=== PATIENT | male | born 1940 | race African-American/Black ===

== ENCOUNTER 2017-07-12 04:08 | Inpatient (IN) | payer MEDICARE ==
[2017-07-12 05:17] LABS: Hematocrit 47.9 % (42.0-52.0); Mean Platelet Volume 6.8 fL (7.4-10.4); White Blood Cell (WBC) Count 7.7 thou/uL (4.8-10.8)
[2017-07-12 05:25] LABS: Bilirubin Small (Negative); Blood, Urine Large (Negative); Glucose, Urine (Dipstick) Negative (Negative); Ketone, Urine 15 mg/dL (Negative); Nitrite Negative (Negative); Protein, Urine (Dipstick) 100 mg/dL (Neg-Trace); Urobilinogen 0.2 mg/dL (0.2-1.0)
[2017-07-12 05:28] LABS: Bacteria/HPF None Seen HPF (None Seen)
[2017-07-12 05:31] LABS: ALT (SGPT) 38 U/L (8-55); AST (SGOT) 75 U/L (5-34); Alkaline Phosphatase 76 U/L (40-150); Anion Gap 18 mmol/L (10-20); BUN (Urea Nitrogen) 24 mg/dL (8.4-25.7); Bilirubin, Total 0.7 mg/dL (0.2-1.2); Calc. Creatinine Clearance 0 mL/min (70-130); Calcium 9.9 mg/dL (7.8-10.44); Carbon Dioxide 23 mmol/L (23-31); Chloride 110 mmol/L (98-107); Estimated GFR-MDRD 83; Globulin 3.9 g/dL (2.4-3.5); Protein, Total 7.9 g/dL (5.8-8.1)
[2017-07-12 05:33] LABS: Lactic Acid - Sepsis 3.7 mmol/L (0.5-2.2)
[2017-07-12 05:35] LABS: #Basophils 0.1 thou/uL (0.0-0.2); #Lymphocytes 1.6 thou/uL (1.20-3.40); #Neutrophils 5.1 thou/uL (1.40-6.50); %Basophils 0.9 % (0.0-1.0); %Eosinophils 0.2 % (0.0-10.0); %Lymphocytes 20.7 % (21.0-51.0); %Monocytes 12.6 % (0.0-10.0)
[2017-07-12 05:50] LABS: Troponin I 0.141 ng/mL (< 0.028)
[2017-07-12 05:54] LABS: Sodium 150 mmol/L (135-148)
[2017-07-12 05:54] LABS: RBC/HPF GREATER THAN 50-TNTC HPF (0-3)
[2017-07-12 05:55] LABS: Mode 2LNC; Modified Allen's Test POSITIVE; Vent NO
[2017-07-12 05:55] LABS: Hyaline Casts/LPF 0-3 HYALINE CAST LPF (0-3 Hyaline); Yeast-All Forms None Seen HPF (None Seen)
[2017-07-12] MEDS ORDERED: Ondansetron HCl/PF 4 MG/2 ML Vial IVP PRN (06:01)
--- NOTE | 2017-07-12 06:01 | PDOC.EVN ---
Event Note - Event Note Event Note: [id number] H&P Dictated 1. Metabolic encephalopathy 2. H/O CVA 3. NSTEMI 4. h/o htn pLAN: SEE ORDERS
[2017-07-12] MEDS ORDERED: cefTRIAXone\\ROCEPHIN 1 GM VIAL ONE (06:17)
[2017-07-12] MEDS ORDERED: Lidocaine 1% PF 5 ML VIAL ONE (06:17)
[2017-07-12] MEDS ORDERED: Aspirin 300 MG Suppository ONE (06:19)
[2017-07-12] MEDS ORDERED: Enoxaparin Sodium 60 MG/0.6 ML SYRINGE ONE (06:46)
[2017-07-12 07:50] LABS: Troponin I 0.144 ng/mL (< 0.028)
--- NOTE | 2017-07-12 07:56 | CT ---
PRELIMINARY REPORT/[facility]/EMERGENCY AFTER HOURS PROCEDURE: EXAM: CT Head Without Intravenous Contrast CLINICAL HISTORY: 76 years old, male; Signs and symptoms; Altered mental status/memory loss; Confusion or disorientati on; Patient HX: AMS TECHNIQUE: Axial computed tomography images of the head/brain without intravenous contrast. COMPARISON: No relevant prior studies available. FINDINGS: Brain: Mild volume loss No hemorrhage. Mild white matter disease. No edema. Ventricles: Unremarkable. No ventriculomegaly. Bones/joints: Chronic nasal bone deformities No acute fracture. Soft tissues: Unremarkable. Sinuses: Unremarkable as visualized. No acute sinusitis. Mastoid air cells: Unremarkable as visualized. No mastoid effusion. IMPRESSION: No intracranial hemorrhage.Please see discussion above. Thank you for allowing us to participate in the care of your patient. Dictated and Authenticated by: Jax Elias MD 07/12/2017 5:28 AM Central Time ([place] \[place]) FINAL REPORT EMERGENT AFTER HOURS CT HEAD WITHOUT IV CONTRAST 07/12/2017 HISTORY: Worsening altered mental status. COMPARISON: 03/20/2017 IMPRESSION: 1. No acute intracranial abnormalities demonstrated. 2. Chronic small vessel ischemic changes and cerebral volume loss similar to prior study. 3. Findings are in agreement with the preliminary report by Miguel. POS: LEIGH
--- NOTE | 2017-07-12 08:44 | PDOC.PN ---
- Subjective Encounter Start Date: 07/12/17 Encounter Start Time: 08:42 Subjective: Confused -: No agitation -: No fevers this AM - Objective MAR Reviewed: Yes Vital Signs & Weight: Vital Signs (12 hours) Temp Pulse Resp BP Pulse Ox 07/12/17 07:56 98.1 F 61 18 136/70 100 Weight Weight 148 lb 0.011 oz Result Diagrams: 07/12/17 05:01 07/12/17 05:01 Phys Exam - Physical Examination Constitutional: NAD HEENT: PERRLA, moist MMs Neck: no nodes, no JVD Respiratory: no wheezing, no rales, no rhonchi Cardiovascular: RRR, no significant murmur Gastrointestinal: soft, non-tender, positive bowel sounds Deviation from normal: unable to assess Skin: no rash, normal turgor Dx/Plan (1) History of CVA (cerebrovascular accident) Code(s): Z86.73 - PRSNL HX OF TIA (TIA), AND CEREB INFRC W/O RESID DEFICITS Status: Acute (2) Metabolic encephalopathy Code(s): G93.41 - METABOLIC ENCEPHALOPATHY Status: Acute (3) NSTEMI (non-ST elevated myocardial infarction) Code(s): I21.4 - NON-ST ELEVATION (NSTEMI) MYOCARDIAL INFARCTION Status: Acute - Plan Encephalopathy 2/2 UTI * CT brain: no acute issue * CXR: pending * Urine cx: pending * Blood cx: pending * start Emperic Abx: Ceftriaxone * consult ST to assess swallow function, as he is at risk for aspiration while encephalopathic * Fall precautions NSTEMI * trend cardiac enzymes * cardiology consulted H/o CVA with Physical Deconditioning * PT/OT * Fall precautions Dispo: continue inpt.
--- NOTE | 2017-07-12 08:51 | HP ---
CHIEF COMPLAINT: Fall, confusion. HISTORY OF PRESENT ILLNESS: The patient is a 76-year-old male with past medical history of hypertension, CVA, hyperlipidemia, osteoarthritis, now came to the hospital because of the fall and history obtained from the patient's family as the patient is currently confused. Per family members, the patient has complained of bilateral lower extremity swelling and pain since this morning. The patient had a fall, following the fall the patient appears confused and so EMS was called. Upon EMS arrival the patient was found confused. The patient was brought to the ER. The patient is lethargic, but no other history available from the patient at this time, The patient per family, the patient was confused since this evening. Denies any cough, denies sputum production, denies any fever, denies any chills. PAST MEDICAL HISTORY: As per HPI. PAST SURGICAL HISTORY: Pacemaker. SOCIAL HISTORY: Denies smoking, denies alcohol, denies any drugs. MEDICATIONS: Reviewed. FAMILY HISTORY: Positive for heart problems. REVIEW OF SYSTEMS: Unavailable from the patient as the patient is currently lethargic. PHYSICAL EXAMINATION: CONSTITUTIONAL/VITAL SIGNS: At the time of H\T\P performed, blood pressure is 130/70, afebrile, pulse ox 97% on 3 liters. GENERAL: The patient appears lethargic, but arousable. HEENT: Eyes; scleral icterus, conjunctival erythema present, nose normal, ENT patent. Poor dentition. NECK: Supple, no JVD. CARDIOVASCULAR: S1, S2 present. Regular rate and rhythm, no murmurs, no rubs, no gallops. RESPIRATORY SYSTEM: Positive for rhonchi. No wheezing. Diminished at the bases. GASTROINTESTINAL: Abdomen is soft, nontender, no guarding, no organomegaly, no masses felt. MUSCULOSKELETAL: Bilateral 2+ edema present. INTEGUMENTARY: No rashes seen. PSYCHIATRIC: Cranial nerve intact. Follows commands. Strength intact, sensory intact. GENITOURINARY: No suprapubic tenderness. NEUROLOGIC: Patient follows commands, not oriented. PSYCHIATRIC: Mood calm. LABORATORY: White count 7.7, hemoglobin 15.2, platelet count is 271. Sodium 147, potassium 3.5, chloride 110, CO2 of 23, BUN of 24, creatinine 1.5. Lactic acid 3.7, CK-MB is 43.8, troponin 0.141, globulin 3.9. EKG, no acute ST changes. Lactic acid 3.7. IMAGING: CT head, no acute process seen. ASSESSMENT AND PLAN: The patient is a 76-year-old male. 1. Metabolic encephalopathy, need to rule out urinary tract infection. Plan to consult Neurology to evaluate the patient. Plan to monitor the patient closely. 2. History of hypertension, monitor blood pressure. Continue pressure meds. 3. Mqu-QS-cmwplsk elevation myocardial infarction. Plan to check cardiac enzymes. Plan to consult Cardiology. Plan to give a dose of Lovenox if CT head negative. 4. History of cerebrovascular accident. Plan to monitor the patient closely. Plan to get PT, OT, speech therapy evaluation. 5. History of hypertension. Monitor blood. Continue blood pressure meds. The case was discussed in detail with the patient. The patient is full code. MTDD
--- NOTE | 2017-07-12 09:15 | RAD ---
PORTABLE AP CHEST X-RAY: 07/12/2017 HISTORY: Altered mental status. COMPARISON: 07/15/2006 FINDINGS: A dual-lead right subclavian cardiac pacemaker device is noted in place. The cardiac silhouette and pulmonary vasculature are within normal limits. Vascular calcifications are seen in an ectatic tho racic aorta. There is bilateral glenohumeral osteoarthropathy with narrowing of the subacromial spa luiz bilaterally. IMPRESSION: No acute cardiopulmonary process. POS: JESSICA
[2017-07-12] MEDS: cefTRIAXone\\ROCEPHIN 1 GM in Sodium Chloride 0.9% 100 ML IVPB SCH (10:27)
[2017-07-12] MEDS: Aspirin 325 mg Enteric Coated Tablet PO SCH (10:27)
[2017-07-12] MEDS: Ramipril 5 MG CAP PO SCH (10:31)
[2017-07-12] MEDS: Carvedilol 25 MG TAB PO SCH ×2 (10:31→21:59)
[2017-07-12] MEDS: Amlodipine 5 MG TAB PO SCH (10:31)
[2017-07-12 10:37] LABS: Oxyhemoglobin 96.8 % (94.0-97.0); Sodium 149 mmol/L (135-148)
[2017-07-12 10:38] LABS: Mode NC; Modified Allen's Test POSITIVE; Vent NO
[2017-07-12] MEDS: Sodium Chloride 0.9% 1,000 ML IV SCH (10:42)
[2017-07-12 10:46] LABS: Troponin I 0.172 ng/mL (< 0.028)
[2017-07-12] MEDS: Furosemide 40 MG/4 ML VIAL SLOW IVP SCH (15:54)
--- NOTE | 2017-07-12 16:34 | CON ---
DATE OF CONSULTATION: 07/12/2017 REASON FOR CONSULTATION: Syncope. REFERRING PROVIDER: Dr. El. HISTORY OF PRESENT ILLNESS: Mr. Luna is a very pleasant 76-year-old gentleman, who I have seen and evaluated in the past. He has a history of moderate CAD, diagnosed in 2010 during angiography. He recently presented with weakness and fall. No syncope, presyncope noted. His family states he fell to the floor and was there for several hours. This occurred in the middle of night. He was then b rought to the emergency room with altered mental status. No chest pain or pressure noted. PAST MEDICAL AND SURGICAL HISTORY: Sick sinus syndrome, status post pacemaker implantation, hyperte nsion, moderate MR, moderate AI and nonischemic cardiomyopathy. ALLERGIES: IODINE. HOME MEDICATIONS: Include folic acid, methotrexate, Lasix, misoprostol, diclofenac, aspirin, carved ilol, ramipril and amlodipine. REVIEW OF SYSTEMS: Ten-point review of system is difficult to obtain. PHYSICAL EXAMINATION: GENERAL: Patient is a pleasant male who is in no acute distress. The patient appears his stated ag e. VITAL SIGNS: Blood pressure 108/58, pulse 60 and temperature 98. NEUROLOGIC: The patient is alert and oriented x3 with no focal neurologic deficits. HEENT: Sclerae without icterus. Mouth has moist mucous membranes with normal pallor. NECK: No JVD. Carotid upstroke brisk. No bruits bilaterally. LUNGS: Clear to auscultation with unlabored respirations. BACK: No scoliosis or kyphosis. CARDIAC: Regular rate and rhythm with normal S1 and S2. No S3 or S4 noted. No significant rubs, m urmurs, thrills, or gallops noted throughout the precordium. PMI is not displaced. There is no par asternal heave. ABDOMEN: Soft, nontender, nondistended. No peritoneal signs present. No hepatosplenomegaly. No abnormal striae. EXTREMITIES: 2+ femoral and 2+ dorsalis pedis pulses. No cyanosis, clubbing, or edema. SKIN: No gross abnormalities. PERTINENT LABS: Hemoglobin 15.2. Creatinine 1.05, CK-MB of 43 and peak troponin 0.144. IMPRESSION: 1. Altered mental status. 2. Weakness and falls. RECOMMENDATIONS: I am unsure whether Mr. Luna has had a true syncope. It is difficult to obtain a history. I would recommend interrogation of his pacer. His elevated CK-MB is likely related to his recent fall and being on the ground for several hours. This is also a reflection of his troponin. At this point, would continue conservative therapy. Last echo in the office was in 08/2015, we wou ld recommend a repeat study. His LVEF at that time was 55% to 60%.
[2017-07-12 23:36] LABS: Troponin I 0.149 ng/mL (< 0.028)
[2017-07-13] MEDS: Sodium Chloride 0.9% 1,000 ML IV SCH (02:15)
[2017-07-13] MEDS: Furosemide 40 MG/4 ML VIAL SLOW IVP SCH ×2 (06:28→14:57)
[2017-07-13 06:47] LABS: Anion Gap 12 mmol/L (10-20); BUN (Urea Nitrogen) 25 mg/dL (8.4-25.7); Calc. Creatinine Clearance 51 mL/min (70-130); Calcium 8.9 mg/dL (7.8-10.44); Carbon Dioxide 25 mmol/L (23-31); Chloride 114 mmol/L (98-107); Estimated GFR-MDRD 75
[2017-07-13 06:52] LABS: Troponin I 0.133 ng/mL (< 0.028)
[2017-07-13 07:50] LABS: Hematocrit 36.4 % (42.0-52.0); Red Blood Cell (RBC) Count 3.45 mill/uL (4.70-6.10); White Blood Cell (WBC) Count 7.3 thou/uL (4.8-10.8)
[2017-07-13 08:07] LABS: Band 1 % (5-11); Neutrophil 58 % (42-75); Reactive Lymphocytes 5 % (0-10)
--- NOTE | 2017-07-13 08:33 | PDOC.PN ---
- Subjective Encounter Start Date: 07/13/17 Encounter Start Time: 08:31 Subjective: More coherent today. -: No f/c -: No MONCADA/cp/sob - Objective MAR Reviewed: Yes Vital Signs & Weight: Vital Signs (12 hours) Temp Pulse Resp BP Pulse Ox 07/13/17 07:48 97.4 F L 62 18 136/72 98 07/13/17 04:00 99.8 F H 63 16 164/70 H 97 07/13/17 00:00 62 18 116/58 L 96 Weight Weight 148 lb 12.8 oz Result Diagrams: 07/13/17 05:52 07/13/17 05:52 Additional Labs: Accuchecks 07/12/17 20:22 POC Glucose 121 H Phys Exam - Physical Examination Constitutional: NAD HEENT: moist MMs, sclera anicteric Neck: no nodes, no JVD Respiratory: no wheezing, no rales, clear to auscultation bilateral Cardiovascular: RRR, no significant murmur Gastrointestinal: soft, non-tender, positive bowel sounds Psychiatric: normal affect, A&O x 3 Skin: no rash, normal turgor, cap refill <2 seconds Dx/Plan (1) History of CVA (cerebrovascular accident) Code(s): Z86.73 - PRSNL HX OF TIA (TIA), AND CEREB INFRC W/O RESID DEFICITS Status: Acute (2) Metabolic encephalopathy Code(s): G93.41 - METABOLIC ENCEPHALOPATHY Status: Acute (3) NSTEMI (non-ST elevated myocardial infarction) Code(s): I21.4 - NON-ST ELEVATION (NSTEMI) MYOCARDIAL INFARCTION Status: Acute - Plan Encephalopathy 2/2 UTI * CT brain: no acute issue * CXR: no acute issue * Urine cx: mixed - will repeat * Blood cx: NGTD * Emperic Abx: Ceftriaxone * consulted ST to assess swallow function - modified diet * Fall precautions NSTEMI * trend cardiac enzymes * appreciate cardiology input H/o CVA with Physical Deconditioning * PT/OT * Fall precautions Hypokalemia * will order 40mEq K-dur today * check K and Mg in AM Hypernatremia * start 1/2NS at 50ml/hr * check Na in AM Dispo: continue inpt.
[2017-07-13] MEDS ORDERED: Potassium Chloride 20 MEQ TAB PO SCH (08:45)
[2017-07-13] MEDS: Sodium Chloride 0.45% 1,000 ML IV SCH (08:48)
[2017-07-13] MEDS: Ramipril 5 MG CAP PO SCH (08:50)
[2017-07-13] MEDS: Aspirin 325 mg Enteric Coated Tablet PO SCH (08:51)
[2017-07-13] MEDS: Amlodipine 5 MG TAB PO SCH (08:51)
[2017-07-13] MEDS: Carvedilol 25 MG TAB PO SCH ×3 (08:51→22:05)
[2017-07-13] MEDS: cefTRIAXone\\ROCEPHIN 1 GM in Sodium Chloride 0.9% 100 ML IVPB SCH (09:55)
[2017-07-13] MEDS: Acetaminophen 325 MG TAB PO PRN (12:43)
--- NOTE | 2017-07-13 18:55 | PRG ---
DATE OF SERVICE: 07/13/2017 SUBJECTIVE: Mr. Luna's status is unchanged. He recently had his pacemaker interrogated with no sig nificant arrhythmias present. Pacemaker appears to be functioning well. OBJECTIVE: VITAL SIGNS: Blood pressure 125/58, temperature 98.5. LUNGS: Clear to auscultation. CARDIAC: Regular rate and rhythm. ABDOMEN: Soft, nontender, nondistended. EXTREMITIES: No edema. IMPRESSION: 1. Recent fall. 2. Elevated troponin. RECOMMENDATIONS: Elevated troponin and CK-MB from recent fall. We would not proceed with a more ag gressive approach. We will proceed with a conservative approach. Cardiovascular peters, he appears s table. I have no further recommendations. It would be okay from my standpoint to discontinue tele.
--- NOTE | 2017-07-13 19:21 | RAD ---
LEFT HIP TWO VIEWS: 07/13/17 HISTORY: Fall, left hip pain. FINDINGS/IMPRESSION: Degenerative changes are present. No definite fracture or dislocation is identified. If there is high clinical suspicion for fracture, further evaluation with CT scan or MRI should be p erformed. POS: JESSICA
--- NOTE | 2017-07-14 06:05 | CON ---
DATE OF CONSULTATION: 07/12/2017 REFERRING PROVIDER: Marty Benavides M.D. REASON FOR CONSULTATION: Altered mental status. HISTORY OF PRESENT ILLNESS: Mr. Luna is a pleasant 76-year-old male who has been concerne d for evaluation of altered mental status. History is very limited. The patient is a very poor his everardo and there are no one present at bedside, thus most of the history is obtained from the patien t's dictated H and P note as well as nurse who is taking care of the patient. Apparently, the patie nt has a history of hypertension, hyperlipidemia, stroke, and osteoarthritis. He had presented to [facility] after sustaining a fall. He was noted by family members to have weakness in both lower extremities as well as swelling and pain in both lower extremities. He was also noted to be confuse d and disoriented and lethargic for which he was brought to the [facility] for furthe r evaluation. According to the nurse, there is a complete things history between different family m embers and some family members who have mentioned that he at baseline does not want to be bed bound and has very slurred speech which is difficult to understand and other family members have mentioned that he is at baseline. He is able to walk with supportive of walker and has slurred speech, but t hat has been improved since his stroke and they are able to understand him. PAST MEDICAL HISTORY: Significant for hypertension, hyperlipidemia, osteoarthritis, and stroke. PAST SURGICAL HISTORY: Significant for pacemaker placement. SOCIAL HISTORY: He does not smoke cigarettes, drink alcohol or use illicit drugs. He lives with fl s family members. FAMILY HISTORY: Significant for heart problems. CURRENT MEDICATIONS: Please review MAR. ALLERGIES: Include IODINE. REVIEW OF SYSTEMS: As mentioned in the HPI, otherwise negative . PHYSICAL EXAMINATION: VITAL SIGNS: Blood pressure of 108/58, pulse of 68, temperature of 98.4, respirations of 18, O2 sat s of 99% on 1.5 liters nasal canula. GENERAL: Well-developed, well-nourished male resting in bed in no apparent distress. RESPIRATORY: Clear to auscultation bilaterally. CARDIOVASCULAR: Regular rate and rhythm. NEUROLOGIC: Mental status: The patient is awake, alert, and oriented to person only. Speech and l anguage: Slightly dysarthric speech noted. Cranial nerves: Pupils are 3 mm and reactive. Visual finn are full to threat. External muscles are intact. No nystagmus is noted. Face is symmetric. Motor exam showed normal tone and bulk with 5/5 strength in both upper and lower extremities. Sen jian: Sensation appears intact. Deep tendon reflexes 1+ reflex in both upper and lower extremities . Babinski: Plantar responses flexion bilaterally. Coordination: Gait and Romberg could not be t ested. LABORATORY DATA: Reviewed which included CBC, CMP, CK-MB and troponin, which is significant for sod ium of 147. Lactic acid 2.7. AST of 75, CK-MB of 42.8, troponin of 0.141. Hemoglobin of 11.8, hem atocrit of 26.4, otherwise unremarkable. Urinalysis was reviewed, which showed 11 to 20 wbc, modera te leukocyte esterase and negative nitrites. IMAGING STUDIES: CT head without contrast was reviewed, which showed no acute intracranial abnormal ity. IMPRESSION: 1. Altered mental status, likely toxic metabolic encephalopathy. 2. Urinary tract infection. Mr. Luna is a pleasant 76-year-old male who presented with changes in mentation and confus ion. It is difficult to evaluate his underlying etiology; however, this is likely secondary to toxi c metabolic encephalopathy. He is not able to undergo MRI secondary to pacemaker. I would recommen d obtaining urine culture and possibility of starting antibiotics for UTI. Continue supportive care . Continue current medical management. No further neurologic workup needed from my standpoint. Thank you for the consultation.
[2017-07-14] MEDS: Furosemide 40 MG/4 ML VIAL SLOW IVP SCH ×2 (07:01→14:45)
--- NOTE | 2017-07-14 08:32 | PDOC.PN ---
- Subjective Encounter Start Date: 07/14/17 Encounter Start Time: 08:30 Subjective: Awake/alert -: Very weak -: No agitation - Objective MAR Reviewed: Yes Vital Signs & Weight: Vital Signs (12 hours) Temp Pulse Resp BP Pulse Ox 07/14/17 07:49 98.2 F 62 15 130/61 98 07/14/17 04:22 98.9 F 66 20 116/59 L 98 07/13/17 23:44 99.0 F 63 14 128/79 98 Weight Admit Weight 148 lb 12.8 oz Weight 148 lb 12.8 oz I&O: 07/13/17 07/14/17 07/15/17 06:59 06:59 06:59 Intake Total 1850 Output Total 440 Balance 1410 Result Diagrams: 07/13/17 05:52 07/13/17 05:52 Phys Exam - Physical Examination Constitutional: NAD HEENT: PERRLA, moist MMs Neck: no nodes, no JVD Respiratory: no wheezing, no rales Cardiovascular: RRR, no significant murmur Gastrointestinal: soft, non-tender, positive bowel sounds Lymphatic: no nodes Psychiatric: normal affect Skin: no rash, normal turgor Dx/Plan (1) History of CVA (cerebrovascular accident) Code(s): Z86.73 - PRSNL HX OF TIA (TIA), AND CEREB INFRC W/O RESID DEFICITS Status: Acute (2) Metabolic encephalopathy Code(s): G93.41 - METABOLIC ENCEPHALOPATHY Status: Acute (3) NSTEMI (non-ST elevated myocardial infarction) Code(s): I21.4 - NON-ST ELEVATION (NSTEMI) MYOCARDIAL INFARCTION Status: Acute - Plan Encephalopathy 2/2 UTI * CT brain: no acute issue * CXR: no acute issue * Urine cx: yeast - but improving WITHOUT antifungals (?contaminant) - repeat pending * Blood cx: NGTD * Emperic Abx: Ceftriaxone * consulted ST to assess swallow function - modified diet * Fall precautions NSTEMI * trend cardiac enzymes * appreciate cardiology input H/o CVA with Physical Deconditioning * PT/OT * Fall precautions Hypokalemia * replace prn * check K and Mg in AM Hypernatremia * 1/2NS at 50ml/hr * check Na in AM Physical Debility * PT/OT Left Hip pain s/p fall * XR - no fracture/dislocation * will check CT if not improving Dispo: continue inpt.
[2017-07-14] MEDS: Sodium Chloride 0.45% 1,000 ML IV SCH (09:08)
[2017-07-14] MEDS: Carvedilol 25 MG TAB PO SCH ×2 (09:52→21:05)
[2017-07-14] MEDS: Ramipril 5 MG CAP PO SCH (09:52)
[2017-07-14] MEDS: Amlodipine 5 MG TAB PO SCH (09:52)
[2017-07-14] MEDS: cefTRIAXone\\ROCEPHIN 1 GM, Admixture Fee 1 EACH in Sodium Chloride 0.9% 100 ML IVPB SCH (09:52)
[2017-07-14] MEDS: Aspirin 325 mg Enteric Coated Tablet PO SCH (09:52)
[2017-07-14] MEDS: Acetaminophen 325 MG TAB PO PRN ×2 (09:54→21:05)
[2017-07-15] MEDS: Furosemide 40 MG/4 ML VIAL SLOW IVP SCH ×2 (06:30→15:07)
[2017-07-15] MEDS: Sodium Chloride 0.45% 1,000 ML IV SCH ×2 (06:30→15:30)
[2017-07-15 06:33] LABS: #Eosinphils 0.1 thou/uL (0.0-0.7); #Lymphocytes 2.1 thou/uL (1.20-3.40); #Monocytes 0.8 thou/uL (0.11-0.59); #Neutrophils 2.8 thou/uL (1.40-6.50); %Basophils 0.6 % (0.0-1.0); %Lymphocytes 36.2 % (21.0-51.0); %Monocytes 14.5 % (0.0-10.0); Hematocrit 36.8 % (42.0-52.0); Mean Platelet Volume 7.5 fL (7.4-10.4); Red Blood Cell (RBC) Count 3.49 mill/uL (4.70-6.10); White Blood Cell (WBC) Count 5.8 thou/uL (4.8-10.8)
[2017-07-15 06:51] LABS: Anion Gap 10 mmol/L (10-20); BUN (Urea Nitrogen) 27 mg/dL (8.4-25.7); Calc. Creatinine Clearance 60 mL/min (70-130); Calcium 9.2 mg/dL (7.8-10.44); Carbon Dioxide 33 mmol/L (23-31); Chloride 101 mmol/L (98-107); Estimated GFR-MDRD Greater than 90; Magnesium 1.8 mg/dL (1.6-2.6)
[2017-07-15] MEDS: cefTRIAXone\\ROCEPHIN 1 GM, Admixture Fee 1 EACH in Sodium Chloride 0.9% 100 ML IVPB SCH (09:21)
[2017-07-15] MEDS: Amlodipine 5 MG TAB PO SCH (09:22)
[2017-07-15] MEDS: Carvedilol 25 MG TAB PO SCH ×2 (09:22→21:47)
[2017-07-15] MEDS: Aspirin 325 mg Enteric Coated Tablet PO SCH (09:22)
[2017-07-15] MEDS: Ramipril 5 MG CAP PO SCH (09:22)
--- NOTE | 2017-07-15 10:57 | PDOC.PN ---
- Subjective Encounter Start Date: 07/15/17 Encounter Start Time: 08:55 -: old records requested/rev Pt seen and examined on rounds, chart reviewed in its entrety. Daughter at bedside feeing him, he is awake and alert and answering appropriately. Daughter states he is back to his baseline mental status. No F/C, no N/V/D/C, no CP or SOB, no cough or sputum production 10 point ROs performed and neg for all systems except as per HPI. PT has not seen or ambulated the patient yet - Objective MAR Reviewed: Yes Vital Signs & Weight: Vital Signs (12 hours) Temp Pulse Resp BP BP Pulse Ox 07/15/17 09:22 61 117/60 07/15/17 04:00 98.5 F 60 20 121/59 L 93 L Weight Admit Weight 148 lb 12.8 oz Weight 142 lb 14.4 oz I&O: 07/14/17 07/15/17 07/16/17 06:59 06:59 06:59 Intake Total 2640 1817 Output Total 440 Balance 2200 1817 Result Diagrams: 07/15/17 05:41 07/15/17 05:41 Radiology Reviewed by me: Yes EKG Reviewed by me: Yes Phys Exam - Physical Examination Constitutional: NAD HEENT: PERRLA, moist MMs, sclera anicteric, oral pharynx no lesions Neck: no nodes, no JVD, supple, full ROM Respiratory: no wheezing, no rales, no rhonchi, clear to auscultation bilateral Cardiovascular: RRR, no significant murmur, no rub Gastrointestinal: soft, non-tender, no distention, positive bowel sounds Musculoskeletal: no edema, pulses present left weakness stable, CN 2-12 appear to be grossly intact Lymphatic: no nodes Psychiatric: normal affect, A&O x 3 Skin: no rash, normal turgor, cap refill <2 seconds Dx/Plan (1) Candidal UTI (urinary tract infection) Code(s): B37.49 - OTHER UROGENITAL CANDIDIASIS Status: Acute Comment: start fluconazole for 7-10 days. Present on admit (2) HTN (hypertension) Code(s): I10 - ESSENTIAL (PRIMARY) HYPERTENSION Status: Chronic Qualifiers: Hypertension type: essential hypertension Qualified Code(s): I10 - Essential (primary) hypertension Comment: stable, Contiue home meds (3) History of CVA (cerebrovascular accident) Code(s): Z86.73 - PRSNL HX OF TIA (TIA), AND CEREB INFRC W/O RESID DEFICITS Status: Chronic (4) Metabolic encephalopathy Code(s): G93.41 - METABOLIC ENCEPHALOPATHY Status: Resolved Comment: present on admit, resolved. (5) NSTEMI (non-ST elevated myocardial infarction) Code(s): I21.4 - NON-ST ELEVATION (NSTEMI) MYOCARDIAL INFARCTION Status: Resolved Comment: ruled out. likely due to fall per cardiology. - Plan cont current plan of care, plan discussed w/ family, PT/OT * . anticipate discharge in 1-2 days
[2017-07-15 13:07] VITALS: BMI 24.5
[2017-07-15] MEDS ORDERED: Atorvastatin Calcium 10 MG TAB PO SCH (21:00)
[2017-07-16 06:08] LABS: #Basophils 0.1 thou/uL (0.0-0.2); #Eosinphils 0.1 thou/uL (0.0-0.7); #Lymphocytes 2.2 thou/uL (1.20-3.40); #Neutrophils 3.2 thou/uL (1.40-6.50); %Eosinophils 1.1 % (0.0-10.0); %Lymphocytes 33.6 % (21.0-51.0); %Monocytes 14.8 % (0.0-10.0); Hematocrit 38.8 % (42.0-52.0); Mean Platelet Volume 7.3 fL (7.4-10.4); Red Blood Cell (RBC) Count 3.72 mill/uL (4.70-6.10); White Blood Cell (WBC) Count 6.5 thou/uL (4.8-10.8)
[2017-07-16 06:24] LABS: Anion Gap 11 mmol/L (10-20); BUN (Urea Nitrogen) 28 mg/dL (8.4-25.7); Calc. Creatinine Clearance 61 mL/min (70-130); Calcium 9.5 mg/dL (7.8-10.44); Carbon Dioxide 34 mmol/L (23-31); Chloride 96 mmol/L (98-107); Estimated GFR-MDRD Greater than 90; Magnesium 1.7 mg/dL (1.6-2.6)
[2017-07-16] MEDS: Furosemide 40 MG/4 ML VIAL SLOW IVP SCH (07:20)
[2017-07-16] MEDS ORDERED: Fluconazole 100 MG TAB PO SCH (09:00)
[2017-07-16] MEDS: Aspirin 325 mg Enteric Coated Tablet PO SCH (10:07)
[2017-07-16] MEDS: cefTRIAXone\\ROCEPHIN 1 GM, Admixture Fee 1 EACH in Sodium Chloride 0.9% 100 ML IVPB SCH (10:07)
[2017-07-16] MEDS: Amlodipine 5 MG TAB PO SCH (10:07)
[2017-07-16] MEDS: Carvedilol 25 MG TAB PO SCH (10:08)
[2017-07-16] MEDS: Ramipril 5 MG CAP PO SCH (10:08)
--- NOTE | 2017-07-16 11:18 | PDOC.PN ---
- Subjective Encounter Start Date: 07/16/17 Encounter Start Time: 09:25 Subjective: awake, has severe dysathria and is difficult to understand -: not in distress, moves all extre well - Objective MAR Reviewed: Yes Vital Signs & Weight: Vital Signs (12 hours) Temp Pulse Pulse Pulse Resp BP BP 07/16/17 10:07 66 07/16/17 09:08 64 60 123/82 161/62 H 07/16/17 07:45 98.6 F 66 20 07/16/17 04:00 98.6 F 76 20 07/16/17 00:00 18 BP Pulse Ox 07/16/17 10:07 07/16/17 09:08 07/16/17 07:45 169/81 H 98 07/16/17 04:00 153/79 H 93 L 07/16/17 00:00 Weight Admit Weight 148 lb 12.8 oz Weight 138 lb 4.8 oz I&O: 07/15/17 07/16/17 07/17/17 06:59 06:59 06:59 Intake Total 1817 1210 Balance 1817 1210 Result Diagrams: 07/16/17 04:51 07/16/17 04:51 Phys Exam - Physical Examination HEENT: PERRLA, sclera anicteric Neck: no JVD, supple Respiratory: no wheezing, no rales Cardiovascular: RRR, no significant murmur Gastrointestinal: soft, non-tender, positive bowel sounds Musculoskeletal: no edema, pulses present Neurological: non-focal, moves all 4 limbs Dx/Plan (1) Candidal UTI (urinary tract infection) Code(s): B37.49 - OTHER UROGENITAL CANDIDIASIS Status: Acute Comment: fluconazole for 5 days. Present on admit (2) HTN (hypertension) Code(s): I10 - ESSENTIAL (PRIMARY) HYPERTENSION Status: Chronic Qualifiers: Hypertension type: essential hypertension Qualified Code(s): I10 - Essential (primary) hypertension Comment: stable, Contiue home meds (3) History of CVA (cerebrovascular accident) Code(s): Z86.73 - PRSNL HX OF TIA (TIA), AND CEREB INFRC W/O RESID DEFICITS Status: Chronic (4) Metabolic encephalopathy Code(s): G93.41 - METABOLIC ENCEPHALOPATHY Status: Resolved Comment: present on admit, resolved. (5) NSTEMI (non-ST elevated myocardial infarction) Code(s): I21.4 - NON-ST ELEVATION (NSTEMI) MYOCARDIAL INFARCTION Status: Resolved Comment: ruled out. likely due to fall per cardiology. - Plan is on ceftriaxone and fluconazole -: gentle iv hydration, encourage po intake -: speech eval, has dysarthria, not sure if he has diff swallowing -: may dc to rehab if accepted * . Review of Systems - Medications/Allergies Allergies/Adverse Reactions: Allergies Allergy/AdvReac Type Severity Reaction Status Date / Time iodine Allergy Intermediate Verified 03/21/17 01:00 Medications: Current Medications Acetaminophen (Tylenol) 650 mg PO Q4H PRN PRN Reason: Headache/Fever or Pain Last Admin: 07/14/17 21:05 Dose: 650 mg Amlodipine Besylate (Norvasc) 5 mg PO DAILY [facility] Last Admin: 07/16/17 10:07 Dose: 5 mg Aspirin (Ecotrin) 325 mg PO DAILY [facility] Last Admin: 07/16/17 10:07 Dose: 325 mg Atorvastatin Calcium (Lipitor) 10 mg PO HS [facility] Last Admin: 07/15/17 21:47 Dose: 10 mg Carvedilol (Coreg) 25 mg PO BID [facility] Last Admin: 07/16/17 10:08 Dose: 25 mg Fluconazole (Diflucan) 200 mg PO DAILY [facility] Last Admin: 07/16/17 10:07 Dose: 200 mg Sodium Chloride (1/2 Normal Saline) 1,000 mls @ 50 mls/hr IV .Q20H [facility] Last Admin: 07/15/17 15:30 Dose: 1,000 mls Ceftriaxone Sodium 1 gm/Miscellaneous Medication 1 each/ Sodium Chloride 100 mls @ 200 mls/hr IVPB Q24HR [facility] Last Admin: 07/16/17 10:07 Dose: 100 mls Ondansetron HCl (Zofran) 4 mg IVP Q6H PRN PRN Reason: Nausea/Vomiting Ramipril (Altace) 10 mg PO DAILY [facility] Last Admin: 07/16/17 10:08 Dose: 10 mg Sodium Chloride (Flush - Normal Saline) 10 ml IVF Q12HR [facility] Last Admin: 07/16/17 10:08 Dose: 10 ml Sodium Chloride (Flush - Normal Saline) 10 ml IVF PRN PRN PRN Reason: Saline Flush
[2017-07-16 12:18] VITALS: BP 110/60; TEMP 97.6
--- NOTE | 2017-07-16 20:15 | DIS ---
DATE OF ADMISSION: 07/12/2017 DATE OF DISCHARGE: 07/16/2017 DISCHARGE DISPOSITION: To inpatient rehabilitation. PRIMARY DISCHARGE DIAGNOSES: Metabolic encephalopathy, urinary tract infection, non-ST elevation my ocardial infarction. SECONDARY DISCHARGE DIAGNOSES: History of cerebrovascular accident with dysarthria and hypertension . PROCEDURES DONE DURING HOSPITALIZATION: The patient has had CT brain done on the day of admission w [facility] showed no intracranial hemorrhage or infarct. Chest x-ray done showed no acute cardiopulmonary process. Echo with 2D Doppler showed EF of 50%-55% and there was diastolic dysfunction, no severe valvular abnormality seen. Blood cultures x2 no growth. Urine culture done on grew yeast spec ies 10,000-25,000 colony forming units per mL. There was also mixed deandra seen. H\T\H 12 and 38, p latelet count 245,000. Troponin I was indeterminate with peaking up to 0.17, CK-MB 43.8, BNP 100. Lactic acid was 3.7. UA was positive for moderate leukocyte esterase. DISCHARGE MEDICATIONS: Norvasc 5 mg p.o. daily, aspirin 325 mg p.o. daily, Lipitor 10 mg p.o. at be dtime, Coreg 25 mg p.o. twice daily, Voltaren 50 mg p.o. 3 times daily, fluconazole 100 mg p.o. timoteo y for another 3 days, folic acid 1 mg p.o. daily, methotrexate 2.5 mg p.o. once weekly, misoprostol 200 mcg p.o. 3 times daily, ramipril 10 mg p.o. daily. ALLERGIES: IODINE. DISCHARGE PLAN: The patient is being discharged to inpatient rehabilitation. BRIEF COURSE DURING HOSPITALIZATION: The patient initially was brought to emergency room with histo ry of falls and confusion at home. He was found to have had urinary tract infection with indetermin ate troponins on admission. The patient was admitted to telemetry. He was closely monitored. His cultures grew yeast species and was contaminated with mixed culture. He was on IV antibiotics, whic h has been discontinued at the time of discharge. He needs to continue fluconazole for another 3 da ys. The patient was evaluated by Dr. López for Cardiology and Dr. Garima Chowdhury for Neurology. He has been cleared by both for discharge. Due to deconditioning and what appears to be patient's bas krish dysarthria from prior stroke, he is being discharged to inpatient rehabilitation. A total of 35 minutes was spent on discharge plan. Please see the face to face documentation on [facility] for the day of discharge.
--- OUTSIDE RECORDS SUMMARY | 2017-07-18 23:12 | XMS | Clinical Summary ---
:1940 Author Organization [facility] Address [address] [place] [address] Phone Care Team Providers Name Role Phone , Primary Care Provider Unavailable Allergies Not on File Current Medications Not on file Active Problems Not on file Social History Tobacco Use Types Packs/Day Years Used Date Never Assessed Sex Assigned at Date Recorded Not on file Last Filed Vital Signs Not on file Plan of Treatment Not on file Results Not on filefrom Last 3 Months
== END 2017-07-16 14:11 | DRG 727 ==
LOC: ERS 04:08 → 2NO 05:40
PROVIDERS: ADMIT Internal Medicine; ATTEND Internal Medicine
DX: B37.49 Other urogenital candidiasis (principal); G92 Toxic encephalopathy; E87.0 Hyperosmolality and hypernatremia; I42.9 Cardiomyopathy, unspecified; I10 Essential (primary) hypertension; I69.322 Dysarthria following cerebral infarction; Z95.0 Presence of cardiac pacemaker; Z91.81 History of falling; E78.5 Hyperlipidemia, unspecified; M19.90 Unspecified osteoarthritis, unspecified site; E87.6 Hypokalemia; M25.552 Pain in left hip
CPT/HCPCS: 36415; 36416; 51701; 70450; 71010; 80048; 80053; 81003; 81015; 82553; 82805; 83605; 83735; 83880; 84484; 85025; 87040; 87086; 93005; 93306; 94760; 96361; 96365; 96372; A4216; G8978-GP-CM; G8979-GP-CK; G8987-GO-CM; G8988-GO-CK; G8996-GN-CJ; G8997-GN-CI; J0696; J1650; J1940; J2001; J7050

== ENCOUNTER 2017-09-05 08:59 | Emergency (ER) | payer MEDICARE ==
[2017-09-05] MEDS ORDERED: Adacel (T-DAP) 0.5 ML VIAL ONE (09:38)
[2017-09-05] MEDS ORDERED: Lidocaine 1% w/Epinephrine 1:200K 30 ML VIAL ONE (09:38)
[2017-09-05 09:50] LABS: #Lymphocytes 1.7 thou/uL (1.20-3.40); #Monocytes 0.5 thou/uL (0.11-0.59); #Neutrophils 2.1 thou/uL (1.40-6.50); %Basophils 1.1 % (0.0-1.0); %Eosinophils 0.7 % (0.0-10.0); %Monocytes 11.1 % (0.0-10.0); Hematocrit 35.7 % (42.0-52.0); Mean Platelet Volume 6.4 fL (7.4-10.4); Red Blood Cell (RBC) Count 3.34 mill/uL (4.70-6.10); White Blood Cell (WBC) Count 4.4 thou/uL (4.8-10.8)
[2017-09-05 09:56] LABS: PTT 31.2 SEC (22.9-36.1); Prothrombin Time 14.2 SEC (12.0-14.7)
[2017-09-05 10:10] LABS: Anion Gap 10 mmol/L (10-20); BUN (Urea Nitrogen) 22 mg/dL (8.4-25.7); Calc. Creatinine Clearance 0 mL/min (70-130); Calcium 8.9 mg/dL (7.8-10.44); Carbon Dioxide 25 mmol/L (23-31); Chloride 109 mmol/L (98-107); Estimated GFR-MDRD 89
[2017-09-05] MEDS ORDERED: Bacitracin Zinc 1 Packet ONE (11:35)
--- NOTE | 2017-09-05 12:49 | CT ---
NONCONTRAST HEAD CT: Date: 09/05/17 COMPARISON: 03/20/17, 07/14/17. HISTORY: Patient has fallen and has trauma to left eyebrow. TECHNIQUE: Noncontrast head CT is performed from skull base to skull vertex. FINDINGS: No parenchymal hemorrhage. No midline shift. Basilar cisterns are patent. Brain volume is age-appropr iate. Cortical desouza-white matter differentiation is preserved. Stable configuration of ventricular sy stem. Stable white matter hypodensities due to chronic small vessel ischemic change. Since the previous exam, there is evidence of a hypodensity, extra-axial in location, along the right frontal convexity and right parietal convexity near the vertex. There is mild associated sulcal effa cement of the right frontal lobe. Given the attenuation, a subdural hygroma is favored. There is no e vidence of hyperdensity to suggest acute hemorrhage. Calvarium is intact. Adequate aeration of the sinuses and mastoid air cells. Cavernous carotid athero sclerosis noted. IMPRESSION: 1. No evidence of acute intracranial hemorrhage. 2. Interval development of extra-axial hypodensity along the right frontal and parietal convexities as detailed above. There is mild associated sulcal effacement. Given the hypodense character, a subdu ral hygroma is favored. Neurosurgical consultation is recommended for further evaluation. POS: [facility]
--- NOTE | 2017-09-05 12:51 | CT ---
CERVICAL SPINE CT NONCONTRAST: Date: 09/05/17 INDICATION: Fall with neck pain, trauma. FINDINGS: There is multilevel prominent degenerative change throughout the cervical spine without acute fractur e or significant subluxation. Craniocervical junction is intact. No retropulsion of bone. IMPRESSION: Multilevel degenerative change throughout the cervical spine without acute fracture identified. POS: [facility]
--- NOTE | 2017-09-05 12:52 | RAD ---
FRONTAL VIEW PELVIS: Date: 09/05/17 INDICATION: Fall with left hip pain. FINDINGS: There is no fracture or dislocation. No significant change from 03/20/17 exam. IMPRESSION: No acute pelvic fracture identified. POS: [facility]
--- NOTE | 2017-09-05 12:53 | RAD ---
FRONTAL VIEW CHEST: Date: 09/05/17 No prior comparison. INDICATION: Fall with injury, pain. FINDINGS: There is a right side dual lead cardiac pacing device again seen. Cardiac silhouette is accentuated b y portable technique, mildly enlarged. The lungs are clear. No effusion or discrete pneumothorax. No acute osseous abnormality identified. IMPRESSION: No acute process identified by single frontal view chest. POS: [facility]
--- NOTE | 2017-09-05 13:01 | CT ---
FACIAL BONES CT WITHOUT CONTRAST: Date: 09/05/17 HISTORY: Fall. Left facial trauma. COMPARISON: None. TECHNIQUE: Maxillofacial CT is performed without contrast. Coronal and sagittal reformatted images are submitted for interpretation. FINDINGS: There is adequate aeration of the visualized sinuses. Old right lamina papyracea fracture is noted. Z ygomatic arches are intact. Pterygoid plates are intact. Visualized maxilla and mandible do not demon strate any post-traumatic change. Periodontal disease is identified. Visualized brain parenchyma is unremarkable. Symmetric attenuation of the optic nerves and ocular rectus muscles. Retrobulbar fat is preserved. Coronal reformatted images demonstrate previous left uncinectomy. No evidence of significant sinus op acification. Nasal septum is intact. The osseous margins of the orbits are maintained. There is a small left periorbital hematoma. There is a small left frontal scalp hematoma. IMPRESSION: Left periorbital hematoma. No evidence of an associated fracture. POS: [facility]
--- NOTE | 2017-09-05 15:29 | CON ---
DATE OF CONSULTATION: 09/05/2017 This is a 30-minute initial patient evaluation, which greater than 50% of the exam was spent in couns eling and coordinating patient's care. The remaining of the exam was spent review of patient's medic al records and appropriate imaging studies. CHIEF COMPLAINT: Status post fall with incidental finding of right frontal hygroma. HISTORY OF PRESENT ILLNESS: Mr. Luna is a 77-year-old male who presents to [facility] with family members for the above complaints. Currently, the patient has history of suffering a CVA and has been on 325 mg aspirin since that time. The patient's family notes per report that he fell out of bed this morning sustaining a left eye laceration, this has been repaired at bedside in the ED . The patient does have slurred speech, but this is baseline for him again due to his previous strok e. CT was obtained of the head noting collection of fluid in the right frontal lobe, mostly consiste nt with hygroma with a possibility of perhaps a chronic subdural hematoma or perhaps a subdural hemat georgi. On review of patient's CT scan of the cervical spine, is negative for acute fracture. PHYSICAL EXAMINATION: The patient is awake, alert, and appropriate, although he does have slurred sp eech. He is able to follow commands in all 4 extremities, although has baseline left-sided weakness due to previous stroke. His pupils are equal, round, and reactive bilaterally. IMPRESSION: Status post fall with chronic right frontal lobe fluid collection likely hygroma versus chronic subdural hematoma. PLAN: I have discussed the patient's case with Dr. Howard and both of us have examined the patient a nd I have discussed his case with his family at bedside. At this time, he does not require any emerg ent neurosurgical intervention as there is no compressive aspect of the fluid collection. Likely, th is has been there for several weeks to months and this should resolve without neurosurgical intervent ion. We have discussed with the patient's family that he should remain off his aspirin for the next week. We will schedule followup appointment in our office next week with a repeat noncontrast head C T. The patient and his family were given ample opportunity to discuss their questions and concerns a nd they are certainly pleased that he does not require neurosurgical intervention at this time. We w ill schedule appropriate followup outpatient. This is Kervin Bonilla PA-C dictating for Dr. Baldemar Howard.
== END 2017-09-05 11:50 | disposition home or self-care (01) ==
LOC: ERS 08:59
DX: S01.112A Laceration without foreign body of left eyelid and periocular area, initial encounter (principal); I10 Essential (primary) hypertension; I49.9 Cardiac arrhythmia, unspecified; Z79.82 Long term (current) use of aspirin; Z86.73 Personal history of transient ischemic attack (TIA), and cerebral infarction without residual deficits; Z79.899 Other long term (current) drug therapy; W06.XXXA Fall from bed, initial encounter
CPT/HCPCS: 12011; 36415; 70450; 70486; 71010; 72125; 72170; 80048; 85025; 85610; 85730; 90471; 90715

== ENCOUNTER 2017-09-13 15:03 | Outpatient (CLI) | payer MEDICARE ==
--- NOTE | 2017-09-13 17:29 | CT ---
NONCONTRAST HEAD CT: Date: 09/13/17 HISTORY: Subdural hygroma. Lymphangioma. COMPARISON: 09/05/17. TECHNIQUE: A noncontrast head CT is performed from the skull base to the skull vertex. FINDINGS: Stable postsurgical changes involving the left uncinate process. There is adequate aeration of the si nuses and mastoid air cells. Cavernous carotid atherosclerosis is noted. The previously noted right frontotemporal extra-axial collection is less evident. The previously note d sulcal effacement has decreased. No acute extra-axial hematoma. There is an interval hyperdensity in the left temporal lobe measuring 1.0 cm. Small parenchymal hemat georgi is favored. Basilar cisterns are patent. Age-appropriate atrophy. Cortical desouza-white matter differentiation is p reserved. Ventricles and sulci are patent and symmetric. IMPRESSION: 1. Interval decrease in size of a right extra-axial collection suggesting partial resolution of a po ssible subdural hygroma or subdural hematoma. 2. Interval development of a hemorrhage in the left temporal lobe. Results of study discussed with Dr. Howard on 09/13/17 at 1354 hours. CODE CR. POS: [facility]
== END 2017-09-13 15:04 | disposition home or self-care (01) ==
LOC: TBSIIMAG 15:03
PROVIDERS: ATTEND Surgery
DX: D18.1 Lymphangioma, any site (principal)
CPT/HCPCS: 70450

== ENCOUNTER 2017-09-25 14:48 | Inpatient (IN) | payer MEDICARE ==
--- NOTE | 2017-09-25 16:05 | RAD ---
PORTABLE CHEST ONE VIEW: 09/25/2017 at 3:25 p.m. HISTORY: Unwitnessed fall. FINDINGS: Comparison is made with the exam of 09/05/2017. Right-sided pacing device remains in place. The heart size is normal. The lungs are expanded withou t focal areas of consolidation, pneumothorax, or pleural effusions. IMPRESSION: No radiographic evidence of acute cardiopulmonary process. POS: [facility]
[2017-09-25 16:27] LABS: Hemoglobin 11.8 g/dL (14.0-18.0); Mean Corpuscular HGB CONC 32.6 g/dL (32.0-36.0); Mean Corpuscular Hemoglobin 34.7 pg (27.0-31.0); Mean Platelet Volume 6.7 fL (7.4-10.4); Platelet Count 209 thou/uL (130-400); RBC Distribution Width 12.9 % (11.5-14.5)
[2017-09-25 16:43] LABS: Band 9 % (5-11); Eosinophils 1 % (0-10); Lymphocytes 19 % (21-51); MDiff Complete? YES; Macrocytosis SLIGHT = 6-15 cells (100X) (0-5/hpf); Monocytes 18 % (0-10); Neutrophil 50 % (42-75); PLT Morphology Comment Appears Adequate; Polychromasia SLIGHT = 2-3 cells (100X) (0-2/hpf); Reactive Lymphocytes 3 % (0-10)
[2017-09-25 16:46] LABS: ALT (SGPT) 12 U/L (8-55); AST (SGOT) 22 U/L (5-34); Albumin 3.3 g/dL (3.4-4.8); Alkaline Phosphatase 55 U/L (40-150); Anion Gap 15 mmol/L (10-20); BUN (Urea Nitrogen) 15 mg/dL (8.4-25.7); Bilirubin, Total 0.4 mg/dL (0.2-1.2); CK (CPK) 202 U/L (30-200); Calc. Creatinine Clearance 0 mL/min (70-130); Carbon Dioxide 24 mmol/L (23-31); Chloride 104 mmol/L (98-107); Estimated GFR-MDRD Greater than 90; Globulin 3.3 g/dL (2.4-3.5); Glucose 113 mg/dL (83-110); Potassium 3.6 mmol/L (3.5-5.1); Protein, Total 6.6 g/dL (5.8-8.1); Sodium 139 mmol/L (136-145)
[2017-09-25 16:51] LABS: CKMB 1.6 ng/mL (0-6.6); Troponin I 0.053 ng/mL (< 0.028)
--- NOTE | 2017-09-25 17:12 | CT ---
CT BRAIN WITHOUT CONTRAST: HISTORY: A 77-year-old male with trauma, fall, bump on the back of his head. FINDINGS: Comparison is made with the exam of 09/13/2017. Changes of cortical atrophy and chronic small-vessel ischemic disease are again seen. The previously noted small focal hyperdensity in the left temporal lobe measuring 1 cm is smaller and measures abou t 7 mm on the current study. The right subdural hygroma/hematoma demonstrates significant interval d ecrease in size. The ventricle size is stable, and the basilar cisterns are patent. No evidence of infarct, new hemorrhage, or midline shift are identified. The bony calvarium is intact. The visual ized paranasal sinuses and mastoid air cells are well-aerated. IMPRESSION: Interval improvement since 09/13/2017. POS: [facility]
--- NOTE | 2017-09-25 17:57 | CT ---
NONCONTRAST CT OF THE CERVICAL SPINE: INDICATION: Fall with neck pain. COMPARISON: Comparison dated 09/05/2017. IMPRESSION: 1. No acute fracture or subluxation is evident. 2. Stable thyromegaly. Recommend consideration for thyroid ultrasound. 3. Stable multilevel spondylosis of the cervical spine. COMMENTS: Osseous central canal is preserved. Craniocervical junction is normal-appearing. No definite acute fracture or subluxation is evident. There is diffuse osteopenia that is similar appearing. POS: [facility]
[2017-09-25] MEDS ORDERED: Oseltamivir 75 MG CAP PO SCH (18:45)
[2017-09-25] MEDS ORDERED: Guaifenesin DM 100-10/5 ML UDCUP PO PRN (19:54)
[2017-09-25] MEDS ORDERED: Acetaminophen 650 MG Suppository PR PRN (19:54)
[2017-09-25] MEDS ORDERED: Ondansetron HCl/PF 4 MG/2 ML Vial IVP PRN (19:54)
[2017-09-25] MEDS ORDERED: Senokot 8.6 MG TAB PO PRN (19:54)
[2017-09-25 20:03] LABS: Troponin I 0.074 ng/mL (< 0.028)
[2017-09-25] MEDS: Sodium Chloride 0.9% 1,000 ML IV SCH (22:11)
[2017-09-25] MEDS: Atorvastatin Calcium 10 MG TAB PO SCH (22:12)
[2017-09-25] MEDS: Famotidine 20 MG TAB PO SCH (22:12)
[2017-09-25] MEDS: Carvedilol 25 MG TAB PO SCH (22:12)
[2017-09-25] MEDS: Acetaminophen 325 MG TAB PO PRN (22:12)
[2017-09-25] MEDS: Misoprostol 200 MCG TAB PO SCH (22:13)
[2017-09-25] MEDS: Oseltamivir 75 MG CAP PO SCH (22:13)
[2017-09-25 22:45] LABS: Troponin I 0.057 ng/mL (< 0.028)
[2017-09-25 23:29] VITALS: BMI 26.1
--- NOTE | 2017-09-25 23:39 | HP ---
REASON FOR ADMISSION: Fever of 101, influenza A, demand ischemia. HISTORY OF PRESENT ILLNESS: Please note the majority of this history is obtained by my talking to patient's family at bedside as patient is not fully oriented. He follows simple verbal stimuli, but does not know what really happened and why he was brought to emergency room. The family at bedside explained that he has not been feeling good from yesterday. He has been feeling very weak and has been coughing. He is not bringing up any sputum. He normally walks with a walker and has fallen 2 times in the last two days. Patient was brought to emergency room here on the 09/13 after a fall with laceration to the left supraorbital area and has had suturing done for the same. Currently, has not had any injuries from the fall. They do not know the mechanism of fall all they know is, he was found on the floor and they picked him up. There is also exposure to flu from his grandchildren in the house. Currently, does not complain of any chest pain or palpitation. No complaints of any specific weakness in any of the extremities. Had a fever of 101.2 degrees here in the ER. PAST MEDICAL AND SURGICAL HISTORY: History of chronic indeterminate troponins, pacemaker, dyslipidemia, history of CVA with left hemiparesis, hypertension, dyslipidemia, osteoarthritis, recurrent falls, likely subdural hematoma, has had a generator change done on 08/15/[address] Laboy for his pacemaker, likely has underlying dementia, history of lumbar radiculopathy, coronary artery disease, right inguinal hernia repair, cystoscopies, history of urethral stricture in the past. CURRENT MEDICATIONS: Takes misoprostol 200 mcg p.o. 3 times daily, ramipril 10 mg p.o. daily, Norvasc 5 mg p.o. daily, diclofenac 50 mg p.o. 3 times daily, folic acid 1 mg p.o. daily, aspirin 325 mg p.o. daily, Coreg 25 mg p.o. twice daily, Lasix 20 mg p.o. daily, Haldol 5 mg as needed, methotrexate 10 mg once weekly. ALLERGIES: IODINE. PERSONAL HISTORY: Does not abuse alcohol or drugs. No history of smoking. FAMILY HISTORY: There is history of heart disease in the family. REVIEW OF SYSTEMS: The following complete review of systems was negative, unless otherwise mentioned in the HPI or below: Constitutional: Weight loss or gain, ability to conduct usual activities. Skin: Rash, itching. Eyes: Double vision, pain. ENT/Mouth: Nose bleeding, neck stiffness, pain, tenderness. Cardiovascular: Palpitations, dyspnea on exertion, orthopnea. Respiratory: Shortness of breath, wheezing, cough, hemoptysis, fever or night sweats. Gastrointestinal: Poor appetite, abdominal pain, heartburn, nausea, vomiting, constipation, or diarrhea. Genitourinary: Urgency, frequency, dysuria, nocturia. Musculoskeletal: Pain, swelling. Neurologic/Psychiatric: Anxiety, depression. Allergy/Immunologic: Skin rash, bleeding tendency. PHYSICAL EXAMINATION: GENERAL: Patient is a 77-year-old male who keeps moaning, which per family is normal for him. He does not appear to be in any distress. VITAL SIGNS: Blood pressure 160/76, pulse 70 per minute, respiratory rate 20 per minute, temperature 101.2 degrees Fahrenheit, saturating 97% on room air. NECK: Supple, no elevated JVD. HEENT: Eyes: Extraocular muscles intact. Pupils are reacting to light. Oral cavity mucous membranes are dry. No exudates or congestion. CARDIOVASCULAR: S1, S2 heard. Regular rhythm. RESPIRATORY: Air entry 1+ bilateral. EXTREMITIES: No ischemic ulcerations or gangrene. CENTRAL NERVOUS SYSTEM: Patient has chronic left hemiparesis, but moves all 4 extremities. PSYCHIATRIC: Patient does not have any hallucinations or delusions at present. LABORATORY AND X-RAY FINDINGS: White count of 4, H&H 11 and 36, platelet count 209 with 50% neutrophils, there is 9% bands, MCV is 106. Electrolytes are stable. BUN 15, creatinine 0.9, glucose 113, albumin is 3.3. Liver enzymes within normal limits. CK level is 202. Troponin I is 0.05, CK-MB is 1.6. Flu nasal swab is positive for influenza A antigen. CT brain shows mild improvement and they have focal hyperdensity seen in the left lower lobe measuring 1 cm is smaller and measures about 7 mm on the current study. Please note, this was in comparison to prior CAT scan done on the 09/13 of this month. There is no acute infarct. CT cervical spine done shows no acute fracture or subluxation. There is multiple spondylosis of the cervical spine. There is diffuse osteopenia seen. CLINICAL IMPRESSION AND PLAN: Patient will be admitted to telemetry for a positive flu for influenza A with fever of 101, generalized weakness, unable to eat or drink and confusion at home with likely acute encephalopathy due to current illness. He has also fallen twice at home. In fact, the patient has had multiple falls in the past and he was recently brought to emergency room on the 09/13 with supraorbital lacerations with suturing done. He will be on normal saline at 70 mL per hour. We will also continue him on full dose aspirin along with Norvasc, Lipitor, Coreg, folic acid and misoprostol, ramipril as before. He will be on Tamiflu 75 mg twice daily and empiric Levaquin 500 mg IV daily. Jansen cultures have been obtained in the ER and will follow up on that. He will be on clear liquid diet for tonight and can be advanced as patient becomes more awake. PT, OT evaluations will be requested. Code status was discussed with the family at bedside and patient. They all want him to be a FULL CODE for now. Patient appears to have chronic troponin in indeterminate stage. His prior echo shows a normal EF of 50% to 55% done in June of this year with mild diastolic dysfunction. His valvular structures were also within normal limits then. Patient can be safely transferred to medical floor if he remains stable with no worsening of troponin and if he remains chest free to medical floor in the morning. [facility]
[2017-09-26 05:09] LABS: Anion Gap 12 mmol/L (10-20); BUN (Urea Nitrogen) 17 mg/dL (8.4-25.7); Calc. Creatinine Clearance 65 mL/min (70-130); Calcium 8.7 mg/dL (7.8-10.44); Carbon Dioxide 26 mmol/L (23-31); Chloride 104 mmol/L (98-107); Estimated GFR-MDRD Greater than 90; Glucose 110 mg/dL (83-110); Potassium 3.1 mmol/L (3.5-5.1); Sodium 139 mmol/L (136-145)
[2017-09-26 05:22] LABS: Band 9 % (5-11); Hemoglobin 10.8 g/dL (14.0-18.0); Lymphocytes 11 % (21-51); MDiff Complete? YES; Mean Corpuscular HGB CONC 32.7 g/dL (32.0-36.0); Mean Corpuscular Hemoglobin 34.5 pg (27.0-31.0); Mean Platelet Volume 6.6 fL (7.4-10.4); Monocytes 17 % (0-10); Neutrophil 53 % (42-75); PLT Morphology Comment Appears Adequate; Platelet Count 185 thou/uL (130-400); RBC Distribution Width 12.9 % (11.5-14.5); RBC Morphology Normal; Reactive Lymphocytes 10 % (0-10); Red Blood Cell (RBC) Count 3.15 mill/uL (4.70-6.10); White Blood Cell (WBC) Count 4.3 thou/uL (4.8-10.8)
--- NOTE | 2017-09-26 08:46 | PDOC.PN ---
- Subjective Encounter Start Date: 09/26/17 Encounter Start Time: 08:44 Subjective: seen and examined with no new complaint - Objective Resuscitation Status: Resuscitation Status FULL:Full Resuscitation Vital Signs & Weight: Vital Signs (12 hours) Temp Pulse Resp BP Pulse Ox 09/26/17 08:15 97.7 F 60 20 152/75 H 97 09/26/17 05:00 97.9 F 64 24 H 140/65 97 09/25/17 23:45 98.4 F 71 22 H 115/71 97 09/25/17 21:05 101.1 F H 65 18 150/66 H 96 Weight Weight 156 lb 12.8 oz Result Diagrams: 09/26/17 04:26 09/26/17 04:26 Phys Exam - Physical Examination Constitutional: NAD HEENT: PERRLA, moist MMs, sclera anicteric, TM's clear Neck: no nodes, no JVD, supple, full ROM Respiratory: no wheezing, no rales, no rhonchi, clear to auscultation bilateral Cardiovascular: RRR, no significant murmur, no rub Gastrointestinal: soft, non-tender, no distention, positive bowel sounds Dx/Plan (1) Influenza A Code(s): J10.1 - FLU DUE TO OTH IDENT INFLUENZA VIRUS W OTH RESP MANIFEST Status: Acute (2) Fever Code(s): R50.9 - FEVER, UNSPECIFIED Status: Acute (3) Hypokalemia Code(s): E87.6 - HYPOKALEMIA Status: Acute (4) HTN (hypertension) Code(s): I10 - ESSENTIAL (PRIMARY) HYPERTENSION Status: Chronic Qualifiers: Comment: stable, Contiue home meds (5) History of CVA (cerebrovascular accident) Code(s): Z86.73 - PRSNL HX OF TIA (TIA), AND CEREB INFRC W/O RESID DEFICITS Status: Chronic (6) Metabolic encephalopathy Code(s): G93.41 - METABOLIC ENCEPHALOPATHY Status: Resolved Comment: present on admit, resolved. - Plan plan discussed w/ family, continue antibiotics, PT/OT, social media executive, respiratory therapy Replete potassium * .
[2017-09-26] MEDS: Oseltamivir 75 MG CAP PO SCH ×2 (09:57→21:02)
[2017-09-26] MEDS: Aspirin 325 mg Enteric Coated Tablet PO SCH (09:58)
[2017-09-26] MEDS: Ramipril 5 MG CAP PO SCH (09:58)
[2017-09-26] MEDS: Potassium Chloride 20 MEQ TAB PO SCH ×2 (09:58→17:06)
[2017-09-26] MEDS: Enoxaparin Sodium 40 MG/0.4 ML SYRINGE SC SCH (09:59)
[2017-09-26] MEDS: Famotidine 20 MG TAB PO SCH ×2 (09:59→21:02)
[2017-09-26] MEDS: Folic Acid 1 MG TAB PO SCH (09:59)
[2017-09-26] MEDS: Amlodipine 5 MG TAB PO SCH (09:59)
[2017-09-26] MEDS: Carvedilol 25 MG TAB PO SCH ×3 (10:22→21:19)
[2017-09-26] MEDS: Misoprostol 200 MCG TAB PO SCH ×4 (10:34→21:35)
[2017-09-26] MEDS: Sodium Chloride 0.9% 1,000 ML IV SCH (15:07)
[2017-09-26] MEDS: Atorvastatin Calcium 10 MG TAB PO SCH (21:03)
[2017-09-27 05:22] LABS: Anion Gap 11 mmol/L (10-20); BUN (Urea Nitrogen) 15 mg/dL (8.4-25.7); Calc. Creatinine Clearance 66 mL/min (70-130); Calcium 8.9 mg/dL (7.8-10.44); Carbon Dioxide 26 mmol/L (23-31); Chloride 104 mmol/L (98-107); Estimated GFR-MDRD Greater than 90; Glucose 94 mg/dL (83-110); Potassium 3.5 mmol/L (3.5-5.1); Sodium 137 mmol/L (136-145)
[2017-09-27] MEDS: Sodium Chloride 0.9% 1,000 ML IV SCH ×2 (06:30→22:30)
--- NOTE | 2017-09-27 07:47 | PDOC.PN ---
- Subjective Encounter Start Date: 09/27/17 Encounter Start Time: 08:30 Subjective: Back to baseline mental status per family. Trouble communicating due to -: previous stroke. Denies complaints this AM. - Objective Resuscitation Status: Resuscitation Status FULL:Full Resuscitation MAR Reviewed: Yes Vital Signs & Weight: Vital Signs (12 hours) Temp Pulse Resp BP Pulse Ox 09/27/17 05:25 97 09/27/17 04:43 98.6 F 63 24 H 156/72 H 09/27/17 00:00 100.4 F H 64 24 H 154/67 H 97 09/26/17 20:00 97.7 F 62 24 H 174/75 H 96 Weight Weight 156 lb 12.8 oz I&O: 09/26/17 09/27/17 09/28/17 06:59 06:59 06:59 Intake Total 1900 Balance 1900 Result Diagrams: 09/26/17 04:26 09/27/17 04:55 Phys Exam - Physical Examination Constitutional: NAD HEENT: moist MMs Respiratory: no wheezing, no rales, no rhonchi, clear to auscultation bilateral Cardiovascular: RRR Gastrointestinal: soft, positive bowel sounds Musculoskeletal: no edema, pulses present Dx/Plan (1) Influenza A Code(s): J10.1 - FLU DUE TO OTH IDENT INFLUENZA VIRUS W OTH RESP MANIFEST Status: Acute (2) Hypokalemia Code(s): E87.6 - HYPOKALEMIA Status: Resolved (3) HTN (hypertension) Code(s): I10 - ESSENTIAL (PRIMARY) HYPERTENSION Status: Chronic Qualifiers: Comment: stable, Contiue home meds (4) History of CVA (cerebrovascular accident) Code(s): Z86.73 - PRSNL HX OF TIA (TIA), AND CEREB INFRC W/O RESID DEFICITS Status: Chronic (5) Metabolic encephalopathy Code(s): G93.41 - METABOLIC ENCEPHALOPATHY Status: Resolved Comment: present on admit, resolved. - Plan cont current plan of care, continue antibiotics, PT/OT, DVT proph w/SCDs Refusing blood thinners as told by Neurosurgery not to take any this week -: before appt on 10/04. * . - Discharge Day Encounter end time: 09:00
[2017-09-27] MEDS: Folic Acid 1 MG TAB PO SCH (09:59)
[2017-09-27] MEDS: Ramipril 5 MG CAP PO SCH (09:59)
[2017-09-27] MEDS: Carvedilol 25 MG TAB PO SCH ×2 (09:59→20:39)
[2017-09-27] MEDS: Famotidine 20 MG TAB PO SCH ×2 (10:00→20:39)
[2017-09-27] MEDS: Amlodipine 5 MG TAB PO SCH (10:00)
[2017-09-27] MEDS: Misoprostol 200 MCG TAB PO SCH ×3 (10:00→20:39)
[2017-09-27] MEDS: Aspirin 325 mg Enteric Coated Tablet PO SCH (10:55)
[2017-09-27] MEDS: Oseltamivir 75 MG CAP PO SCH ×2 (12:34→20:39)
[2017-09-27] MEDS: Acetaminophen 325 MG TAB PO PRN (12:49)
[2017-09-27] MEDS: Enoxaparin Sodium 40 MG/0.4 ML SYRINGE SC SCH (15:14)
[2017-09-27] MEDS: Atorvastatin Calcium 10 MG TAB PO SCH (20:39)
[2017-09-28] MEDS: Amlodipine 5 MG TAB PO SCH (09:09)
[2017-09-28] MEDS: Carvedilol 25 MG TAB PO SCH ×2 (09:10→21:05)
[2017-09-28] MEDS: Ramipril 5 MG CAP PO SCH (09:10)
[2017-09-28] MEDS: Folic Acid 1 MG TAB PO SCH (09:10)
[2017-09-28] MEDS: Oseltamivir 75 MG CAP PO SCH ×2 (09:10→21:02)
[2017-09-28] MEDS: Famotidine 20 MG TAB PO SCH ×2 (09:10→21:05)
[2017-09-28] MEDS: Aspirin 325 mg Enteric Coated Tablet PO SCH (09:10)
[2017-09-28] MEDS: Misoprostol 200 MCG TAB PO SCH ×3 (09:10→21:05)
--- NOTE | 2017-09-28 09:43 | PDOC.PN ---
- Subjective Encounter Start Date: 09/28/17 Encounter Start Time: 09:00 Subjective: Still very weak requiring full assist with PT. No other complaints. - Objective Resuscitation Status: Resuscitation Status FULL:Full Resuscitation MAR Reviewed: Yes Vital Signs & Weight: Vital Signs (12 hours) Temp Pulse Resp BP BP Pulse Ox 09/28/17 09:10 147/67 H 09/28/17 09:09 63 147/67 H 09/28/17 07:45 97.3 F L 63 16 147/67 H 97 09/28/17 07:20 97.0 F L 62 28 H 09/28/17 04:05 97.0 F L 62 28 H 118/58 L 96 09/28/17 03:59 98 09/27/17 23:52 98.9 F 59 L 16 117/58 L 98 Weight Weight 156 lb 12.8 oz I&O: 09/27/17 09/28/17 09/29/17 06:59 06:59 06:59 Intake Total 1899 1927 Balance 1899 1927 Result Diagrams: 09/26/17 04:26 09/27/17 04:55 Phys Exam - Physical Examination Constitutional: NAD HEENT: moist MMs Respiratory: no wheezing, no rales, no rhonchi Cardiovascular: RRR Gastrointestinal: soft, positive bowel sounds Musculoskeletal: no edema Psychiatric: normal affect, A&O x 3 Deviation from normal: dysarthria Dx/Plan (1) Influenza A Code(s): J10.1 - FLU DUE TO OTH IDENT INFLUENZA VIRUS W OTH RESP MANIFEST Status: Acute (2) Hypokalemia Code(s): E87.6 - HYPOKALEMIA Status: Resolved (3) HTN (hypertension) Code(s): I10 - ESSENTIAL (PRIMARY) HYPERTENSION Status: Chronic Qualifiers: Comment: stable, Contiue home meds (4) History of CVA (cerebrovascular accident) Code(s): Z86.73 - PRSNL HX OF TIA (TIA), AND CEREB INFRC W/O RESID DEFICITS Status: Chronic (5) Metabolic encephalopathy Code(s): G93.41 - METABOLIC ENCEPHALOPATHY Status: Resolved Comment: present on admit, resolved. (6) Sepsis Code(s): A41.9 - SEPSIS, UNSPECIFIED ORGANISM Status: Resolved Comment: Patient with fever, suppressed WBC, and some tachypnea in the hospital, along with metablic encephalopathy on admit consistent with sepsis from Influenza A. Now resolved. - Plan cont current plan of care, PT/OT, social work administrator Patient will need SNF after 3rd midnight. * . - Discharge Day Encounter end time: 09:30
[2017-09-28] MEDS: Sodium Chloride 0.9% 1,000 ML IV SCH (14:34)
[2017-09-28] MEDS: Acetaminophen 325 MG TAB PO PRN (21:02)
[2017-09-28] MEDS: Atorvastatin Calcium 10 MG TAB PO SCH (21:05)
[2017-09-29] MEDS: Sodium Chloride 0.9% 1,000 ML IV SCH ×3 (04:17→19:22)
[2017-09-29] MEDS: Aspirin 325 mg Enteric Coated Tablet PO SCH (10:13)
[2017-09-29] MEDS: Misoprostol 200 MCG TAB PO SCH ×3 (10:13→21:39)
[2017-09-29] MEDS: Oseltamivir 75 MG CAP PO SCH ×2 (10:13→21:40)
[2017-09-29] MEDS: Amlodipine 5 MG TAB PO SCH (10:13)
[2017-09-29] MEDS: Carvedilol 25 MG TAB PO SCH ×2 (10:13→21:40)
[2017-09-29] MEDS: Famotidine 20 MG TAB PO SCH ×2 (10:14→21:39)
[2017-09-29] MEDS: Folic Acid 1 MG TAB PO SCH (10:14)
[2017-09-29] MEDS: Ramipril 5 MG CAP PO SCH (10:14)
--- NOTE | 2017-09-29 18:16 | PDOC.PN ---
- Subjective Encounter Start Date: 09/29/17 Encounter Start Time: 12:00 Subjective: Feeling much better. No more confusion. - Objective Resuscitation Status: Resuscitation Status FULL:Full Resuscitation MAR Reviewed: Yes Vital Signs & Weight: Vital Signs (12 hours) Temp Pulse Resp BP Pulse Ox 09/29/17 16:00 98.6 F 60 21 H 152/79 H 94 L 09/29/17 11:45 97.8 F 62 18 158/78 H 98 09/29/17 08:00 97.6 F 60 18 173/80 H 99 Weight Weight 156 lb 12.8 oz I&O: 09/28/17 09/29/17 09/30/17 06:59 06:59 06:59 Intake Total 1927 1107 480 Balance 1927 1107 480 Result Diagrams: 09/26/17 04:26 09/27/17 04:55 Phys Exam - Physical Examination Constitutional: NAD HEENT: moist MMs Respiratory: no wheezing, no rales, no rhonchi Cardiovascular: RRR Gastrointestinal: soft, positive bowel sounds left sided weakness Psychiatric: normal affect, A&O x 3 Dx/Plan (1) Influenza A Code(s): J10.1 - FLU DUE TO OTH IDENT INFLUENZA VIRUS W OTH RESP MANIFEST Status: Acute (2) Hypokalemia Code(s): E87.6 - HYPOKALEMIA Status: Resolved (3) HTN (hypertension) Code(s): I10 - ESSENTIAL (PRIMARY) HYPERTENSION Status: Chronic Qualifiers: Comment: stable, Contiue home meds (4) History of CVA (cerebrovascular accident) Code(s): Z86.73 - PRSNL HX OF TIA (TIA), AND CEREB INFRC W/O RESID DEFICITS Status: Chronic (5) Metabolic encephalopathy Code(s): G93.41 - METABOLIC ENCEPHALOPATHY Status: Resolved Comment: present on admit, resolved. (6) Sepsis Code(s): A41.9 - SEPSIS, UNSPECIFIED ORGANISM Status: Resolved Comment: Patient with fever, suppressed WBC, and some tachypnea in the hospital, along with metablic encephalopathy on admit consistent with sepsis from Influenza A. Now resolved. - Plan cont current plan of care No evidence pneumonia so d/c Levaquin. Continue Tamiflu. Transfer to rehab -: when approved. * . - Discharge Day Encounter end time: 12:30
--- NOTE | 2017-09-29 19:36 | PDOC.EVN ---
Event Note - Event Note Event Note: Patient with multiple stools today. Not watery or mucoid, more pasty. C. diff sent with antigen positive, toxin pending. If toxin positive will treat with metronidazole. If toxin neg will check for fecal leukocytes.
[2017-09-29] MEDS: Acetaminophen 325 MG TAB PO PRN (21:38)
[2017-09-29] MEDS: Atorvastatin Calcium 10 MG TAB PO SCH (21:39)
--- NOTE | 2017-09-30 10:12 | PDOC.PN ---
- Subjective Encounter Start Date: 09/30/17 Encounter Start Time: 10:00 Subjective: no complaints, had about 3 stools overnight - Objective Resuscitation Status: Resuscitation Status FULL:Full Resuscitation MAR Reviewed: Yes Vital Signs & Weight: Vital Signs (12 hours) Temp Pulse Resp BP Pulse Ox 09/30/17 08:10 97.9 F 62 16 155/72 H 99 09/30/17 03:51 97.4 F L 61 18 152/73 H 96 09/30/17 00:15 97.7 F 61 16 130/76 96 Weight Weight 156 lb 12.8 oz I&O: 09/29/17 09/30/17 10/01/17 06:59 06:59 06:59 Intake Total 1107 720 Balance 1107 720 Result Diagrams: 09/26/17 04:26 09/27/17 04:55 Phys Exam - Physical Examination Constitutional: NAD HEENT: moist MMs Respiratory: no wheezing, no rales, no rhonchi Cardiovascular: RRR, no significant murmur Gastrointestinal: soft, positive bowel sounds Musculoskeletal: no edema Psychiatric: normal affect Deviation from normal: trouble communicating due to stroke and dysarthria Dx/Plan (1) Influenza A Code(s): J10.1 - FLU DUE TO OTH IDENT INFLUENZA VIRUS W OTH RESP MANIFEST Status: Acute (2) Hypokalemia Code(s): E87.6 - HYPOKALEMIA Status: Resolved (3) HTN (hypertension) Code(s): I10 - ESSENTIAL (PRIMARY) HYPERTENSION Status: Chronic Qualifiers: Comment: stable, Contiue home meds (4) History of CVA (cerebrovascular accident) Code(s): Z86.73 - PRSNL HX OF TIA (TIA), AND CEREB INFRC W/O RESID DEFICITS Status: Chronic (5) Metabolic encephalopathy Code(s): G93.41 - METABOLIC ENCEPHALOPATHY Status: Resolved Comment: present on admit, resolved. (6) Sepsis Code(s): A41.9 - SEPSIS, UNSPECIFIED ORGANISM Status: Resolved Comment: Patient with fever, suppressed WBC, and some tachypnea in the hospital, along with metablic encephalopathy on admit consistent with sepsis from Influenza A. Now resolved. (7) C. difficile diarrhea Code(s): A04.72 - ENTEROCOLITIS D/T CLOSTRIDIUM DIFFICILE, NOT SPCF RECUR Status: Acute Comment: mild symptoms, antigen and toxin positive so will treat with Vanc 125mg po QID for 10 days. - Plan cont current plan of care, PT/OT, DVT proph w/SCDs Cleared to d/c to Rehab * . - Discharge Day Encounter end time: 10:25
[2017-09-30] MEDS: Sodium Chloride 0.9% 1,000 ML IV SCH (10:19)
[2017-09-30] MEDS: Folic Acid 1 MG TAB PO SCH (10:22)
[2017-09-30] MEDS: Ramipril 5 MG CAP PO SCH (10:23)
[2017-09-30] MEDS: Carvedilol 25 MG TAB PO SCH (10:23)
[2017-09-30] MEDS: Acetaminophen 325 MG TAB PO PRN ×2 (10:23→15:41)
[2017-09-30] MEDS: Oseltamivir 75 MG CAP PO SCH (10:23)
[2017-09-30] MEDS: Misoprostol 200 MCG TAB PO SCH ×2 (10:23→15:41)
[2017-09-30] MEDS: Aspirin 325 mg Enteric Coated Tablet PO SCH ×2 (10:23→14:35)
[2017-09-30] MEDS: Amlodipine 5 MG TAB PO SCH (10:24)
[2017-09-30] MEDS: Famotidine 20 MG TAB PO SCH (10:24)
[2017-09-30] MEDS ORDERED: Vancomycin HCl 25 MG/ML Oral PO SCH ×2 (11:30→13:00)
[2017-09-30 12:59] VITALS: BP 162/90; TEMP 98
[2017-09-30] MEDS ORDERED: Methotrexate Sodium 2.5 MG TAB PO SCH (17:00)
--- NOTE | 2017-10-01 06:09 | DIS ---
PRIMARY CARE PHYSICIAN: Arti Larry. DIAGNOSES ON ADMISSION: 1. Influenza A. 2. Acute encephalopathy. 3. Multiple falls. 4. 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 5. Coronary artery disease with chronic indeterminate troponins. 6. Hypertension. 7. Dyslipidemia. 8. Pacemaker. 9. Dementia. 10. Urethral stricture. DISCHARGE DIAGNOSES: 1. Influenza A. 2. Metabolic encephalopathy, resolved. 3. Clostridium difficile diarrhea. 4. Sepsis secondary to influenza A, resolved. 5. Multiple falls. 6. 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 7. Coronary artery disease with chronic indeterminate troponins. 8. Hypertension. 9. Dyslipidemia. 10. Pacemaker. 11. Dementia. 12. Urethral stricture. PROCEDURES: 1. CT of the brain showing some actual improvement in previous hygroma, hematoma in the brain, other peters unchanged. 2. Cervical spine CT showing no acute fracture or subluxation. CONSULTATIONS: None. PERTINENT LABORATORY DATA: White blood cell count 4.3, hemoglobin and hematocrit stable. No bandemi a or neutrophilia. Troponins indeterminate, stable with previous. Influenza antigen testing positiv e for influenza A antigen. C. difficile antigen and toxin both positive. HOSPITAL COURSE: This is a 77-year-old -British male with a history of previous stroke, dysa rthria and left-sided weakness. He easily gets around with a walker and has fallen multiple times pr ior to coming into the hospital and he developed a fever in the hospital and he was diagnosed with in fluenza and started on Tamiflu along with Levaquin for possible infection. Chest x-ray was don e in the emergency room that did show no infiltrates or evidence of pneumonia and his white cell coun t remained low, so his Levaquin was eventually discontinued. The patient did better over the next ho spital days, but still with some weakness and it was determined that he should go to the rehabilitati on before going home. The day before discharge, the patient did have increasing stool frequency, no bad smell or mucus or blood in them and so C. diff antigen and toxin were sent since he was on antibi otics on admission. The antigen and toxin both came back positive, still having frequent stools, but not massive amounts and he has been started on oral vancomycin for a mild C. difficile diarrhea. e patient has been accepted to [facility] where he is being transferred to rehab today. DISCHARGE MANAGEMENT: Discharged to [facility]. DISCHARGE MEDICATIONS: 1. Alphanavar 75 mg twice a day to complete a 5-day course. 2. Vancomycin 125 mg 4 times a day for 10 days. 3. Ramipril 10 mg daily. 4. Cytotec 200 mcg 3 times a day. 5. Methotrexate 2.5 mg every 7 days. 6. Folic acid 1 mg daily. 7. Diflucan 100 mg daily. 8. Voltaren 3 times a day. 9. Carvedilol 25 mg twice a day. 10. Atorvastatin 10 mg at night. 11. Aspirin 325 mg daily. 12. Amlodipine 5 mg daily. 13. Senokot as needed. 14. Robitussin DM 15 mL q.4 hours as needed for coughing congestion. 15. Pepcid 20 mg twice a day. 16. Tylenol as needed. FOLLOWUP: Patient is to follow up with his primary care physician, Dr. Arti Larry in a couple of weeks. ACTIVITIES: As tolerated. DIET: Healthy heart, low sodium diet. DISCHARGE PLAN: He is to get occupational, physical and speech therapy. He does need mechanical sof t texture solids and nectar thick liquids per Speech Therapy.
--- NOTE | 2017-10-02 15:28 | EKG ---
Test Reason : Blood Pressure : / mmHG Vent. Rate : 061 BPM Atrial Rate : 061 BPM P-R Int : 092 ms QRS Dur : 188 ms QT Int : 446 ms P-R-T Axes : -23 -86 093 degrees QTc Int : 448 ms AV sequential or dual chamber electronic pacemaker Confirmed by DAMIR MARISCAL ([id number]), newspaper managing editor MARILEE ESCOBAR ([id number]) on 10/02/2017 3:27:36 PM Referred By: Confirmed By:DAMIR MARISCAL
== END 2017-09-30 16:10 | DRG 871 ==
LOC: ERS 14:48 → 2SW 17:27 → SURG A 09-28 10:51
PROVIDERS: ADMIT Internal Medicine; ATTEND Internal Medicine
DX: A41.89 Other specified sepsis (principal); G93.41 Metabolic encephalopathy; A04.72 Enterocolitis due to Clostridium difficile, not specified as recurrent; I24.8 Other forms of acute ischemic heart disease; I69.354 Hemiplegia and hemiparesis following cerebral infarction affecting left non-dominant side; J10.1 Influenza due to other identified influenza virus with other respiratory manifestations; R65.20 Severe sepsis without septic shock; I69.322 Dysarthria following cerebral infarction; F03.90 Unspecified dementia, unspecified severity, without behavioral disturbance, psychotic disturbance, mood disturbance, and anxiety; I10 Essential (primary) hypertension; I25.10 Atherosclerotic heart disease of native coronary artery without angina pectoris; I51.89 Other ill-defined heart diseases; N35.9 Urethral stricture, unspecified; E78.5 Hyperlipidemia, unspecified; Z95.0 Presence of cardiac pacemaker; Z91.81 History of falling; Z82.49 Family history of ischemic heart disease and other diseases of the circulatory system; Z88.8 Allergy status to other drugs, medicaments and biological substances; E87.6 Hypokalemia
CPT/HCPCS: 36415; 70450; 71010; 72125; 80048; 80053; 82550; 82553; 84484; 85025; 87324; 87449; 87493; 93005; 96360; A4216; G8978-GP-CM; G8979-GP-CL; G8987-GO-CL; G8988-GO-CJ; G8996-GN-CK; G8997-GN-CI; J1650; J1956; J8610

== ENCOUNTER 2017-11-09 12:20 | Emergency (ER) | payer MEDICARE ==
--- NOTE | 2017-11-09 13:38 | RAD ---
SINGLE VIEW OF THE PELVIS: Comparison: 09-05-17 History: Patient was found down at 4:00 a.m. by the daughter after a fall. Pelvic pain. FINDINGS: Single view of the pelvis shows no evidence of acute fracture or dislocation. No significant degenera tive changes seen in either hip. There are moderate degenerative changes of the lumbar spine. There i s stable remodeling of the superior and inferior pubic rami. IMPRESSION: No evidence of acute osseous abnormality. POS: [facility]
--- NOTE | 2017-11-09 13:39 | CT ---
CT OF THE BRAIN WITHOUT CONTRAST: COMPARISON: 08/29/17. HISTORY: Fall. The patient was found down by his daughter, whom he lives with, at 4:00 in the morning; head t rauma. TECHNIQUE: Multiple contiguous axial images were obtained in a CT of the brain without contrast. FINDINGS: There are scattered hypodensities in the subcortical and periventricular white matter, likely seconda ry to small-vessel ischemic disease. No large confluent infarction is seen. There is no evidence of hydrocephalus, intracranial hemorrhage, or extraaxial fluid collection. The calvarium and overlying soft tissues are unremarkable. The visualized paranasal sinuses and mast oid air cells are well aerated. IMPRESSION: No evidence of acute intracranial abnormality. POS: [facility]
--- NOTE | 2017-11-09 13:45 | RAD ---
PORTABLE CHEST ONE VIEW: Date: 11-09-17 Time: 1:06 p.m. History: Fall, right shoulder pain. FINDINGS: Comparison is made with exam of 09-25-17. The heart size is normal. The right sided pacemaker remains in place. The lungs are well expanded wit hout focal areas of consolidation, pneumothorax, or pleural effusion. There is degenerative change in the shoulder joint. IMPRESSION: No radiographic evidence of acute cardiopulmonary process. POS: [facility]
== END 2017-11-09 13:50 | disposition home or self-care (01) ==
LOC: ERS 12:20
DX: M25.511 Pain in right shoulder (principal); M25.551 Pain in right hip; R53.1 Weakness; M25.561 Pain in right knee; I49.9 Cardiac arrhythmia, unspecified; I10 Essential (primary) hypertension; W19.XXXA Unspecified fall, initial encounter; Z79.899 Other long term (current) drug therapy; Z79.82 Long term (current) use of aspirin
CPT/HCPCS: 70450; 71045; 72170

== ENCOUNTER 2017-12-04 15:31 | Emergency (ER) | payer MEDICARE ==
[2017-12-04 17:04] LABS: Anion Gap 12 mmol/L (10-20); BUN (Urea Nitrogen) 21 mg/dL (8.4-25.7); CK (CPK) 515 U/L (30-200); Calc. Creatinine Clearance 0 mL/min (70-130); Calcium 9.3 mg/dL (7.8-10.44); Carbon Dioxide 25 mmol/L (23-31); Chloride 107 mmol/L (98-107); Estimated GFR-MDRD 90; Glucose 115 mg/dL (83-110); Potassium 3.7 mmol/L (3.5-5.1); Sodium 140 mmol/L (136-145)
--- NOTE | 2017-12-04 17:05 | RAD ---
AP PELVIS 12/04/17 HISTORY: Fall. Bilateral hip pain. FINDINGS/IMPRESSION: Comparison made with exam of 11/09/17. Degenerative changes are present in the hip and SI joints. No acute fracture or dislocation is identi fied. No significant interval changes seen since 11/09/17. There is stable remodeling of the superior and inferior pubic rami. POS: [facility]
--- NOTE | 2017-12-04 17:06 | RAD ---
LUMBAR SPINE THREE VIEWS 12/04/17 HISTORY: Trauma, fall, hip pain, low back pain. FINDINGS/IMPRESSION: Degenerative changes are present. There is grade I anterolisthesis of L4 over L5 vertebral bodies. No compression fracture is identified. POS: [facility]
== END 2017-12-04 17:52 | disposition home or self-care (01) ==
LOC: ERS 15:31
DX: S30.0XXA Contusion of lower back and pelvis, initial encounter (principal); K59.00 Constipation, unspecified; I10 Essential (primary) hypertension; W19.XXXA Unspecified fall, initial encounter
CPT/HCPCS: 36415; 72100; 72170; 80048; 82550

== ENCOUNTER 2017-12-06 11:45 | Emergency (ER) | payer MEDICARE ==
[2017-12-06 14:02] LABS: #Basophils 0.1 thou/uL (0.0-0.2); #Eosinphils 0.1 thou/uL (0.0-0.7); #Lymphocytes 1.7 thou/uL (1.20-3.40); #Monocytes 0.7 thou/uL (0.11-0.59); #Neutrophils 2.7 thou/uL (1.40-6.50); %Basophils 1.2 % (0.0-1.0); %Lymphocytes 33.1 % (21.0-51.0); %Monocytes 14.1 % (0.0-10.0); %Neutrophils 50.6 % (42.0-75.0); Hemoglobin 11.6 g/dL (14.0-18.0); Mean Corpuscular HGB CONC 32.5 g/dL (32.0-36.0); Mean Corpuscular Hemoglobin 33.9 pg (27.0-31.0); Mean Platelet Volume 6.3 fL (7.4-10.4); Platelet Count 263 thou/uL (130-400); RBC Distribution Width 13.3 % (11.5-14.5); Red Blood Cell (RBC) Count 3.42 mill/uL (4.70-6.10); White Blood Cell (WBC) Count 5.2 thou/uL (4.8-10.8)
[2017-12-06 14:23] LABS: Anion Gap 8 mmol/L (10-20); BUN (Urea Nitrogen) 20 mg/dL (8.4-25.7); Calc. Creatinine Clearance 0 mL/min (70-130); Calcium 9.3 mg/dL (7.8-10.44); Carbon Dioxide 32 mmol/L (23-31); Chloride 106 mmol/L (98-107); Estimated GFR-MDRD 79; Glucose 110 mg/dL (83-110); Lipase 14 U/L (8-78); Potassium 3.8 mmol/L (3.5-5.1); Sodium 142 mmol/L (136-145)
--- NOTE | 2017-12-06 14:32 | CT ---
NONCONTRAST ENHANCED CT IMAGES ABDOMEN AND PELVIS: HISTORY: A 77-year-old male with a history of lower abdominal pain. FINDINGS: Noncontrast enhanced CT images of the abdomen and pelvis obtained. Iv and oral contrast was not give n. The lung bases are unremarkable. No evidence of free intraperitoneal air is seen. The patient has an intracardiac pacing device. The liver and spleen are unremarkable. The pancreas is unremarkable. Adrenal gland is unremarkable. The right kidney contains cortical cysts. Other hypodense areas are seen in the left kidney most com patible with left-sided renal cysts or cystic lesions. I cannot exclude the possibility of renal pat hology including malignancy. No evidence of periaortic lymphadenopathy is seen. Motion artifact is seen which does decrease the sensitivity for detection of pathology in the abdomen and pelvis. Multilevel lumbar degenerative change is seen. Areas of old trauma are seen in the pelvis with fused right and left SI joints. No dilated loops of small bowel seen. IMPRESSION: Multiple hypodense areas seen in the kidneys possibly representing renal cysts or cystic masses. Cor relate with urological consultation as clinically indicated. POS: [facility]
[2017-12-06 14:48] LABS: Bilirubin Negative (Negative); Blood, Urine Trace (Negative); Clarity CLEAR (Clear); Glucose, Urine (Dipstick) Negative (Negative); Leukocyte Small (Negative); Nitrite Negative (Negative); Protein, Urine (Dipstick) Negative (Neg-Trace); Specific Gravity, Urine 1.019 (1.002-1.036); pH, Urine 6.5 (5.0-9.0)
[2017-12-06 14:50] LABS: Bacteria/HPF None Seen HPF (None Seen); Hyaline Casts/LPF 0-3 HYALINE CAST LPF (0-3 Hyaline); Pathc Cast-AUWi Flag 0.13 (0-2.49); Squamous Epithelial 0-3 HPF (0-3); WBC/HPF 0-3 HPF (0-3)
[2017-12-06 14:58] LABS: Renal Epithelial 0-3 HPF (0-3); Transitional Epithelial 0-3 HPF (0-3)
== END 2017-12-06 15:20 | disposition home or self-care (01) ==
LOC: ERS 11:45
DX: R10.31 Right lower quadrant pain (principal); I10 Essential (primary) hypertension; Z86.73 Personal history of transient ischemic attack (TIA), and cerebral infarction without residual deficits; Z79.899 Other long term (current) drug therapy
CPT/HCPCS: 36415; 51701; 74176; 80048; 81003; 81015; 83690; 85025

== ENCOUNTER 2017-12-08 11:10 | Emergency (ER) | payer MEDICARE ==
[2017-12-08 11:59] LABS: #Lymphocytes 1.1 thou/uL (1.20-3.40); #Monocytes 0.7 thou/uL (0.11-0.59); #Neutrophils 3.8 thou/uL (1.40-6.50); %Basophils 0.6 % (0.0-1.0); %Eosinophils 0.8 % (0.0-10.0); %Lymphocytes 18.7 % (21.0-51.0); %Neutrophils 66.9 % (42.0-75.0); Hemoglobin 12.4 g/dL (14.0-18.0); Mean Corpuscular HGB CONC 31.1 g/dL (32.0-36.0); Mean Corpuscular Hemoglobin 33.8 pg (27.0-31.0); Mean Platelet Volume 6.6 fL (7.4-10.4); Platelet Count 253 thou/uL (130-400); RBC Distribution Width 13.2 % (11.5-14.5); Red Blood Cell (RBC) Count 3.67 mill/uL (4.70-6.10); White Blood Cell (WBC) Count 5.7 thou/uL (4.8-10.8)
[2017-12-08 12:14] LABS: ALT (SGPT) 29 U/L (8-55); AST (SGOT) 38 U/L (5-34); Albumin 3.6 g/dL (3.4-4.8); Alkaline Phosphatase 67 U/L (40-150); Anion Gap 15 mmol/L (10-20); BUN (Urea Nitrogen) 19 mg/dL (8.4-25.7); Bilirubin, Total 0.4 mg/dL (0.2-1.2); Calc. Creatinine Clearance 0 mL/min (70-130); Calcium 9.5 mg/dL (7.8-10.44); Carbon Dioxide 23 mmol/L (23-31); Chloride 103 mmol/L (98-107); Estimated GFR-MDRD Greater than 90; Globulin 3.6 g/dL (2.4-3.5); Glucose 152 mg/dL (83-110); Lipase 9 U/L (8-78); Potassium 4.3 mmol/L (3.5-5.1); Protein, Total 7.2 g/dL (5.8-8.1); Sodium 137 mmol/L (136-145)
[2017-12-08 12:22] LABS: Macrocytosis SLIGHT = 6-15 cells (100X) (0-5/hpf)
[2017-12-08] MEDS ORDERED: diphenhydrAMINE 50 MG/ML VIAL ONE ×2 (12:40→12:58)
[2017-12-08] MEDS ORDERED: Famotidine/PF 20 mg/2ml Vial ONE ×2 (12:40→12:58)
[2017-12-08] MEDS ORDERED: methylPREDNISolone Sod Succ/PF 125 MG/2 ML VIAL ONE ×2 (12:40→12:58)
--- NOTE | 2017-12-08 14:21 | CT ---
ABDOMEN AND PELVIC CT SCAN WITH IV CONTRAST: History: 72-year-old male with history of hip pain and abdominal pain, lower abdominal pain. Comparison: 12-06-17, 12-01-12 FINDINGS: There are some subtle new alveolar parenchymal changes in the left lower lobe, possibly some very min imal or early pneumonitis or subsegmental atelectasis. There is some motion artifact. The visualized liver, gallbladder, pancreas, spleen, and adrenal glands are unremarkable. Multiple bilateral renal c ysts up to 4 cm. There is lumbar spondylosis with some anterolisthesis of L4 and L5 and marked canal and lateral recess stenosis. There is some abnormal thickening and heterogeneous attenuation within t he inferior right rectus muscle with an appearance which is concerning for the possibility of a rectu s muscle hematoma. There is some diffuse subcutaneous fat stranding of the lower abdomen and overlyin g both hip joints, possibly related to some developing or progressive anasarca. Evidence for prior le ft inguinal hernia repair. There is some minimal fat stranding in the anterior right pelvis adjacent to the enlarged right rectus muscle. IMPRESSION: Some abnormal thickening and heterogeneous attenuation associated with the inferior right rectus musc le with some minimal adjacent fat stranding noted in the soft tissues overlying the right rectus musc le and also posterior to the right rectus muscle somewhat between the right rectus muscle and the sarah dder. The etiology of this infiltrative process is indeterminate but I would favor the possibility of this representing a hematoma to be the most likely etiology certainly much more likely than some typ e of neoplastic or infectious process. Correlate clinically with regards to associated bruising. Lumb ar spondylosis with anterolisthesis of L4 on L5 and canal stenosis. Multiple bilateral renal cysts. E xam is somewhat limited by motion artifact. Post op left inguinal hernia repair changes. POS: [facility]
[2017-12-08 15:32] LABS: Bilirubin Negative (Negative); Blood, Urine Negative (Negative); Clarity CLEAR (Clear); Glucose, Urine (Dipstick) Negative (Negative); Leukocyte Negative (Negative); Nitrite Negative (Negative); Protein, Urine (Dipstick) Negative (Neg-Trace); Specific Gravity, Urine 1.031 (1.002-1.036); pH, Urine 5.5 (5.0-9.0)
[2017-12-08] MEDS ORDERED: Iopamidol 370 76% 100 ML VIAL ONE (16:30)
[2017-12-08 17:58] LABS: INR-International Normal Ratio 1.1; PTT 31.8 SEC (22.9-36.1); Prothrombin Time 14.8 SEC (12.0-14.7)
== END 2017-12-08 18:38 | disposition home or self-care (01) ==
LOC: ERS 11:10
DX: M79.81 Nontraumatic hematoma of soft tissue (principal); I10 Essential (primary) hypertension; Z79.899 Other long term (current) drug therapy
CPT/HCPCS: 36415; 51701; 74177; 80053; 81003; 83690; 85025; 85610; 85730; 96374; 96375; J1200; J2930; S0028

== ENCOUNTER 2017-12-15 17:38 | Emergency (ER) | payer MEDICARE ==
[2017-12-15] MEDS ORDERED: Lidocaine 1% w/Epinephrine 1:100K 20 ML VIAL ONE (18:25)
--- NOTE | 2017-12-15 20:20 | RAD ---
RADIOGRAPH LEFT ELBOW 4 VIEWS: 12/15/17 HISTORY: 77-year-old male with acute traumatic left elbow pain from fall. FINDINGS: There is no dislocation. No fracture is identified. IMPRESSION: Negative. POS: [facility]
[2017-12-15 20:43] LABS: Bilirubin Negative (Negative); Blood, Urine Negative (Negative); Clarity CLEAR (Clear); Glucose, Urine (Dipstick) Negative (Negative); Leukocyte Trace (Negative); Nitrite Negative (Negative); Protein, Urine (Dipstick) Negative (Neg-Trace); Specific Gravity, Urine 1.021 (1.002-1.036); pH, Urine 6.5 (5.0-9.0)
[2017-12-15 20:45] LABS: Bacteria/HPF None Seen HPF (None Seen); Hyaline Casts/LPF 0-3 HYALINE CAST LPF (0-3 Hyaline); Pathc Cast-AUWi Flag 0.14 (0-2.49); RBC/HPF 0-3 HPF (0-3); Squamous Epithelial 0-3 HPF (0-3); WBC/HPF 0-3 HPF (0-3)
--- NOTE | 2017-12-15 20:47 | CT ---
CT BRAIN NONCONTRAST: 12/15/17 HISTORY: 77-year-old male status post acute head trauma from fall. FINDINGS: There is no midline shift or any other mass effect. There is no evidence of acute intracranial hemor rhage, large cortical infarct, obstructive hydrocephalus, or extraaxial fluid collection. The calvar ium is intact. There is diffuse parenchymal volume loss. There are low attenuation areas in the whi te matter. These are nonspecific, but in a patient of this age, they are probably chronic ischemic w maxwell matter changes due to microvascular atherosclerosis. There is no interval change since 11/09/17. IMPRESSION: 1) No acute intracranial findings. 2) Involutional changes and chronic ischemic white matter changes. jw [] POS: [facility]
--- NOTE | 2017-12-15 21:03 | CT ---
CT CERVICAL SPINE NONCONTRAST: 12/15/17 HISTORY: 77-year-old male status post acute cervical trauma from fall. FINDINGS: There are no jumped or perched facets. There is no evidence of acute fracture. The vertebral body h eights are maintained. There is no prevertebral soft tissue swelling. There are degenerative disc c hanges and facet osteoarthrosis. There is a large right thyroid mass that displaces the trachea to th e left, and extends to the upper mediastinum. This was present on a previous chest CT of 01/22/03. The re is edema throughout the larynx. IMPRESSION: 1) Cervical spondylosis. 2) No evidence of acute fracture or acute traumatic subluxation. 3) Right substernal goiter. jw [] POS: [facility]
--- NOTE | 2017-12-15 21:12 | RAD ---
RADIOGRAPH RIGHT ELBOW 2 VIEWS: 12/15/17 HISTORY: 77-year-old male status post acute traumatic injury to the elbow from fall. FINDINGS: The study actually consists of four images, but according to the x-ray technologist, only a two view was charged because the wrong elbow was imaged initially. The patient's pain is actually in the contr alateral left elbow. FINDINGS: There is no fracture or dislocation. IMPRESSION: Negative. POS: [facility]
--- NOTE | 2017-12-15 21:27 | RAD ---
RADIOGRAPH PELVIS 1 VIEW: DATE: 12/15/17 TIME: 6:44 p.m. HISTORY: 77-year-old male status post acute traumatic injury to the pelvis from fall. COMPARISON: 11/09/17. FINDINGS: No evidence for fracture or dislocation. If symptoms do not improve by next week, consideration shoul d be given to followup with noncontrast pelvic CT to evaluate for occult fracture (patient has a pace maker which would preclude MRI). There are large enthesophytes at the periphery of the bilateral kelby c wings, and there are hypertrophic changes at the lower lumbar spine. There is no interval change ov erall. IMPRESSION: 1. No evidence for fracture. 2. Evidence for diffuse idiopathic skeletal hyperostosis (DISH). POS: [facility]
== END 2017-12-15 20:35 | disposition home or self-care (01) ==
LOC: ERS 17:38
DX: S01.112A Laceration without foreign body of left eyelid and periocular area, initial encounter (principal); S00.83XA Contusion of other part of head, initial encounter; I10 Essential (primary) hypertension; Z79.899 Other long term (current) drug therapy; W17.89XA Other fall from one level to another, initial encounter
CPT/HCPCS: 12013; 70450; 72125; 72170; 81003; 81015; 87086; J2001

== ENCOUNTER 2017-12-30 12:20 | Emergency (ER) | payer MEDICARE ==
--- NOTE | 2017-12-30 14:34 | CT ---
CT HEAD WITHOUT CONTRAST: Date: 12/30/17 Multiple axial tomograms obtained through the head without IV enhancement. HISTORY: Patient fell. Injury to head with scalp hematoma. COMPARISON: 12/15/17. FINDINGS: Mild cortical atrophy again noted. Moderate chronic ischemic white matter change again noted. No intr acranial hemorrhage, mass, or infarct. There is a scalp hematoma over the right frontal bone. No evid ence of skull fracture. IMPRESSION: Scalp hematoma of right frontal bone. No evidence of acute intracranial process. POS: [facility]
--- NOTE | 2017-12-30 14:37 | CT ---
CT CERVICAL SPINE: Technique: Multiple axial tomograms were obtained through the cervical spine without IV contrast. Indication: Patient fell, injury to neck. Trauma. Neck pain. FINDINGS: There are moderate degenerative changes of the cervical spine. Loss of disc space at all levels. Prom inent hypertrophic changes seen at C1-2. No evidence of acute fracture. The right lobe of the thyroid is enlarged and heterogeneous. This was described on a prior CT. IMPRESSION: 1. Degenerative changes of the cervical spine. No evidence of acute fracture. 2. Enlarged heterogeneous thyroid, especially the right lobe. POS: [facility]
[2017-12-30 15:46] LABS: #Lymphocytes 1.6 thou/uL (1.20-3.40); #Monocytes 0.5 thou/uL (0.11-0.59); #Neutrophils 2.1 thou/uL (1.40-6.50); %Basophils 0.5 % (0.0-1.0); %Eosinophils 0.9 % (0.0-10.0); %Lymphocytes 36.5 % (21.0-51.0); %Monocytes 12.2 % (0.0-10.0); %Neutrophils 49.9 % (42.0-75.0); Hemoglobin 11.7 g/dL (14.0-18.0); Mean Corpuscular HGB CONC 32.3 g/dL (32.0-36.0); Mean Corpuscular Hemoglobin 34.3 pg (27.0-31.0); Platelet Count 260 thou/uL (130-400); RBC Distribution Width 13.3 % (11.5-14.5); Red Blood Cell (RBC) Count 3.41 mill/uL (4.70-6.10); White Blood Cell (WBC) Count 4.3 thou/uL (4.8-10.8)
[2017-12-30 16:07] LABS: Anion Gap 9 mmol/L (10-20); BUN (Urea Nitrogen) 23 mg/dL (8.4-25.7); Calc. Creatinine Clearance 0 mL/min (70-130); Calcium 9.4 mg/dL (7.8-10.44); Carbon Dioxide 30 mmol/L (23-31); Chloride 104 mmol/L (98-107); Estimated GFR-MDRD Greater than 90; Glucose 85 mg/dL (83-110); Potassium 4.1 mmol/L (3.5-5.1); Sodium 139 mmol/L (136-145)
[2017-12-30 16:45] LABS: Bilirubin Negative (Negative); Blood, Urine Negative (Negative); Clarity CLEAR (Clear); Glucose, Urine (Dipstick) Negative (Negative); Leukocyte Negative (Negative); Nitrite Negative (Negative); Protein, Urine (Dipstick) Negative (Neg-Trace); Specific Gravity, Urine 1.016 (1.002-1.036); pH, Urine 7.5 (5.0-9.0)
--- NOTE | 2018-01-03 16:11 | EKG ---
Test Reason : Blood Pressure : / mmHG Vent. Rate : 061 BPM Atrial Rate : 061 BPM P-R Int : 186 ms QRS Dur : 180 ms QT Int : 474 ms P-R-T Axes : -10 -86 089 degrees QTc Int : 477 ms AV dual-paced rhythm No STEMI Abnormal ECG Confirmed by MARCELLE Martell, DESTINY ([id number]), order editor ZEFERINO HERAD ([id number] on 01/03/2018 4:10:55 PM Referred By: Confirmed By:DESTINY IBANEZ M.D.
== END 2017-12-30 18:45 | disposition home or self-care (01) ==
LOC: ERS 12:20
DX: S01.81XA Laceration without foreign body of other part of head, initial encounter (principal); I10 Essential (primary) hypertension; Z79.899 Other long term (current) drug therapy; W18.30XA Fall on same level, unspecified, initial encounter
CPT/HCPCS: 12011; 36415; 70450; 72125; 80048; 81003; 85025; 93005

== ENCOUNTER 2018-03-09 16:33 | Inpatient (IN) | payer MEDICARE ==
[2018-03-09] MEDS ORDERED: Acetaminophen/Codeine 30-300mg Tablet ONE (17:33)
[2018-03-09 17:59] LABS: Hemoglobin 11.5 g/dL (14.0-18.0); Mean Corpuscular HGB CONC 32.7 g/dL (32.0-36.0); Mean Corpuscular Hemoglobin 33.6 pg (27.0-31.0); Mean Platelet Volume 5.9 fL (7.4-10.4); Platelet Count 276 thou/uL (130-400); RBC Distribution Width 12.6 % (11.5-14.5); Red Blood Cell (RBC) Count 3.43 mill/uL (4.70-6.10)
[2018-03-09 18:27] LABS: Lymphocytes 37 % (21-51); MDiff Complete? YES; Monocytes 12 % (0-10); Neutrophil 48 % (42-75); PLT Morphology Comment Appears Adequate; RBC Morphology Normal; Reactive Lymphocytes 2 % (0-10)
[2018-03-09 18:28] LABS: CKMB 4.2 ng/mL (0-6.6); Troponin I 0.029 ng/mL (< 0.028)
--- NOTE | 2018-03-09 18:28 | CT ---
CT CERVICAL SPINE: 03/09/18 Multiple axial tomograms obtained through the cervical spine with multiplanar reconstruction. HISTORY: Fall with injury to head and neck. There are moderate degenerative changes of the cervical spine. Loss of disc space and hypertrophic ch anges seen throughout. No evidence of fracture identified. A large heterogeneous thyroid is again noted. The right lobe is particularly prominent with internal calcifications. This finding was also described on a recent CT cervical spine dated 12/30/17. IMPRESSION: 1. Degenerative changes of the cervical spine. No acute fracture. 2. Large heterogeneous thyroid again noted which does produce mass effect on the trachea. POS: [facility]
[2018-03-09 18:31] LABS: ALT (SGPT) 12 U/L (8-55); AST (SGOT) 18 U/L (5-34); Albumin 3.6 g/dL (3.4-4.8); Alkaline Phosphatase 67 U/L (40-150); Anion Gap 11 mmol/L (10-20); BUN (Urea Nitrogen) 23 mg/dL (8.4-25.7); Bilirubin, Total 0.4 mg/dL (0.2-1.2); Calc. Creatinine Clearance 0 mL/min (70-130); Calcium 9.6 mg/dL (7.8-10.44); Carbon Dioxide 29 mmol/L (23-31); Chloride 105 mmol/L (98-107); Estimated GFR-MDRD 71; Globulin 3.4 g/dL (2.4-3.5); Glucose 85 mg/dL (83-110); Potassium 4.3 mmol/L (3.5-5.1); Sodium 141 mmol/L (136-145)
--- NOTE | 2018-03-09 18:31 | RAD ---
LEFT HIP: 03/09/18 Two views. HISTORY: Fall with injury to left hip. Mild degenerative change at the left hip. No acute fracture identified. IMPRESSION: No evidence of acute fracture. POS: [facility]
--- NOTE | 2018-03-09 18:35 | RAD ---
AP PELVIS: 03/09/18 INDICATIONS: Fall with injury to left hip. Comparison made to recent pelvic films of 12/15/17. FINDINGS/IMPRESSION: Bony pelvis appears intact. There are degenerative changes involving both SI joints and both hips. No acute fracture identified. POS: [facility]
[2018-03-09 18:47] LABS: INR-International Normal Ratio 1.1; PTT 32.8 SEC (22.9-36.1); Prothrombin Time 14.4 SEC (12.0-14.7)
--- NOTE | 2018-03-09 19:01 | CT ---
CT HEAD WITHOUT CONTRAST: 03/09/18 Multiple axial tomograms obtained through the head without IV enhancement. HISTORY: Fall with injury to head. Compared to recent head CT of 12/30/17. There is cortical atrophy of the chronic ischemic white matter changes which are again noted. There is evidence of a tiny acute subdural hematoma along the right frontal convexity measuring in th e 4 mm range. This is not producing any mass effect. There is another focal hemorrhagic contusion seen in the left posterior temporal lobe in a subcortica l region measuring approximately 5 mm. No other hemorrhage identified. No evidence of skull fracture identified. IMPRESSION: 1. Tiny acute right subdural hematoma of the right frontal convexity. 2. A tiny focal hemorrhage contusion in the subcortical region of the left posterior temporal lo be. Findings relayed to Dr. Babin. Code CR POS: [facility]
[2018-03-09 19:12] LABS: Bilirubin Small (Negative); Blood, Urine Negative (Negative); Clarity CLEAR (Clear); Glucose, Urine (Dipstick) Negative (Negative); Leukocyte Small (Negative); Nitrite Negative (Negative); Protein, Urine (Dipstick) Negative (Neg-Trace); Specific Gravity, Urine 1.024 (1.002-1.036); pH, Urine 5.5 (5.0-9.0)
--- NOTE | 2018-03-09 19:18 | RAD ---
PORTABLE CHEST: 03/09/18 HISTORY: Fall. Head injury. COMPARISON: 11/09/17. Lungs appear clear. No infiltrate or edema seen. The heart is mildly enlarged and there is mild vascu lar engorgement. Findings appear stable from the prior exam. Significant degenerative changes at the left shoulder. Pacemaker leads are unchanged. IMPRESSION: No acute process. POS: [facility]
[2018-03-09 19:19] LABS: Bacteria/HPF None Seen HPF (None Seen); RBC/HPF 0-3 HPF (0-3); Squamous Epithelial 0-3 HPF (0-3)
[2018-03-09 19:30] LABS: Other Casts/LPF None Seen LPF (0-3 Hyaline); Renal Epithelial None Seen HPF (0-3); Transitional Epithelial NONE SEEN HPF (0-3)
[2018-03-09] MEDS ORDERED: Acetaminophen 325 MG TAB PO PRN (20:25)
[2018-03-09 21:29] VITALS: BMI 25.9
[2018-03-09] MEDS: Sodium Chloride 0.9% 1,000 ML IV SCH (22:30)
--- NOTE | 2018-03-10 02:34 | HP ---
Kervin Bonilla PA-C, dictating for Baldemar Howard MD This is a 30-minute initial patient evaluation in which greater than 50% of the exam was spent counse ling and coordinating patient's care. Remainder of the exam was spent in review of patient's medical records and appropriate imaging studies. CHIEF COMPLAINT: Fall with bilateral parietal subdural hematomas. HISTORY OF PRESENT ILLNESS: Mr. Luna is a 77-year-old male who presents to [facility] for the above complaints. Apparently, the patient states that falls are very common for him, althou gh he does have a cane and walker that he uses at home when he remembers. He notes falling roughly 1 week ago and hitting his forehead. Does have a history of CVA that has left him with some mild left -sided weakness, left arm greater than left leg and significant dysarthria. The patient complains of some hip pain on the left, but his imaging is negative for hip pathology. He does note that he feel s as though he has nerve pain including back pain and pain into the left leg, but is unable to provid e any more details than that. He currently denies neck pain or arm pain. Does have a history of a p acemaker and was treated with previously on 325 mg aspirin; but according to the patient's family, he has not been taking this over the past several months. A head CT was obtained showing a very small right parietal and left parietal subdural hematoma and cervical spine imaging is negative for acute f racture. PHYSICAL EXAMINATION: The patient is awake, alert, and appropriate. His GCS is currently 15. He do es have significant dysarthria, although I am able to understand a few words that he says. His famil y is able to understand him and helps to interpret for him. He also has what sounds like snoring res pirations, although he has no difficulty protecting his airway and again when questioned about this, the patient's family states this is baseline for him as far as his respirations. He has good strengt h in all the extremities with the exception of some trace weakness in the left lower extremity and mi ld weakness into the left upper extremity. He has no worrisome myelopathic features on exam includin g negative Yanez's bilaterally and no increased tone. He has no tenderness to palpation along the entirety of the spine. He is minimally conversant during the exam, but again is very appropriate, un derstands he is in the hospital and it is 2018. IMPRESSION AND DIAGNOSIS: History of fall with very small right parietal and left parietal subdural hematoma. PLAN: I have discussed the patient's case and imaging with Dr. Howard. Also discussed the patient's imaging with his family noted that he does not require any type of neurosurgical intervention in reg billy to surgery. We would like to admit him overnight for observation and we will repeat his head CT in the morning. Should this be stable, hopefully we will be able to discharge him. We will admit adriana m to the stroke unit with q.2 hours neuro checks. He did have an elevated BNP and I will consult [facility] for this. The patient's family certainly pleased that he does not require neurosurgical interv ention. His coags are normal. Again, we will monitor the patient's neurologic status overnight and plan for repeat head CT noncontrast in the morning. Please call with any changes in patient's neurol ogic status. We would like his systolic blood pressure to remain less than 150.
[2018-03-10 04:30] LABS: #Eosinphils 0.1 thou/uL (0.0-0.7); #Lymphocytes 1.9 thou/uL (1.20-3.40); #Monocytes 0.7 thou/uL (0.11-0.59); #Neutrophils 2.1 thou/uL (1.40-6.50); %Basophils 0.9 % (0.0-1.0); %Eosinophils 1.1 % (0.0-10.0); %Lymphocytes 40.5 % (21.0-51.0); %Monocytes 14.1 % (0.0-10.0); %Neutrophils 43.4 % (42.0-75.0); Hemoglobin 10.7 g/dL (14.0-18.0); Mean Corpuscular HGB CONC 32.8 g/dL (32.0-36.0); Mean Corpuscular Hemoglobin 34.1 pg (27.0-31.0); Mean Platelet Volume 6.2 fL (7.4-10.4); Platelet Count 247 thou/uL (130-400); RBC Distribution Width 12.7 % (11.5-14.5); Red Blood Cell (RBC) Count 3.15 mill/uL (4.70-6.10); White Blood Cell (WBC) Count 4.7 thou/uL (4.8-10.8)
[2018-03-10 04:41] LABS: Anion Gap 10 mmol/L (10-20); BUN (Urea Nitrogen) 24 mg/dL (8.4-25.7); Calc. Creatinine Clearance 54 mL/min (70-130); Calcium 9.1 mg/dL (7.8-10.44); Carbon Dioxide 30 mmol/L (23-31); Chloride 106 mmol/L (98-107); Estimated GFR-MDRD 78; Glucose 83 mg/dL (83-110); Potassium 3.8 mmol/L (3.5-5.1); Sodium 142 mmol/L (136-145)
--- NOTE | 2018-03-10 08:46 | CT ---
PRELIMINARY REPORT/[facility]/EMERGENTY AFTER-HOURS PROCEDURE Addendum created by Leonard Bates MD on 03/10/2018 4:05 AM Central Time ([place] & [place]) THIS REPORT CONTA INS FINDINGS THAT MAY BE CRITICAL TO PATIENT CARE. The findings were verbally communicated via teleph one conference with SIDNEY Bey at 4:05 AM CDT on 03/10/2018. The findings were acknowledged and unders tood. Initial Report created on 03/10/2018 4:00 AM Central Time ([place] & [place]) CT Head Without Intravenous Contrast CLINICAL HISTORY: 77 years old, male; Injury or trauma; Fall; Follow-up exam; Concussion / head injury; Patient HX: Pre vious brain CT on pacs. M77 presents to the ed with C/O fall. 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 Pt HX is fall risk, and when he is weak he will fall. Pt family reports he lives her his daughter, no one saw the fall. Pt reports pain in his left hip, head , and right knee. 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 Pt reports taking tylenol 3 when he woke up and another one later in the day before 3pm. Pt family says pt is acting no rmal, mumbling behavior is normal for him. TECHNIQUE: Axial computed tomography images of the head/brain without intravenous contrast. COMPARISON: No relevant prior studies available. FINDINGS: Brain: 7 mm hyperattenuating focus within the left temporal lobe (series 2, image 13), possibly repre senting intraparenchymal hemorrhagic contusion. Scattered areas of hypoattenuation, likely chronic sm all vessel ischemic change, demyelination, or gliosis. Ventricles: Normal. Bones/joints: Normal. No acute fracture. Soft tissues: Normal. Sinuses: Minimal ethmoid and left maxillary sinus mucosal thickening. Changes of prior left maxillary sinus surgery. Mastoid air cells: Normal as visualized. No mastoid effusion. IMPRESSION: 1. 7 mm hyperattenuating focus within the left temporal lobe (series 2, image 13), possibly represent ing intraparenchymal hemorrhagic contusion. Recommend followup. 2. Incidental/non-acute findings are described above. Thank you for allowing us to participate in the care of your patient. Dictated and Authenticated by: Leonard Bates MD 03/10/2018 4:00 AM Central Time ([place] & [place]) FINAL REPORT HEAD CT WITHOUT CONTRAST: Date: 03/10/18 Time: 0253 hours COMPARISON: 03/09/18. HISTORY: Evaluate bilateral subdural hematoma. FINDINGS: I agree with the preliminary report given by [facility]. The visualized paranasal sinuses/mastoid air cells demonstrate no acute findings. There is evidence o f prior paranasal sinus surgery on the left. There is no midline shift or mass effect seen. As seen on the prior examination, there is a nonspecific focal area of increased attenuation measurin g 5.0 mm on axial image 13 in the inferior aspect of the left temporal lobe posteriorly. This may rep resent a subcentimeter focus of hemorrhage. The prior exam demonstrated a possible tiny subdural terry jf versus artifact in the right frontal region which is no longer seen on this exam. Of note, prior imaging has been reviewed, including head CT performed 11/09/17. On that examination, the hyperdense focus in the posterior left temporal lobe is present and stable, thus likely on the basis of chronic calcification. IMPRESSION: I agree with the preliminary [facility] report that there is a stable hyperdense focus in the left temporal lobe. However, when reviewing multiple prior examinations, this finding is stable. No evidence for i ntracranial hemorrhage. CODE T. POS: JESSICA
[2018-03-10] MEDS: hydrALAZINE 20 MG/ML VIAL SLOW IVP PRN (12:09)
--- NOTE | 2018-03-10 13:09 | PRG ---
DATE OF SERVICE: 03/10/2018 This is a 30 minute initial hospital visit note in which 30 minutes were spent in review of the imagi ng record, evaluation of the patient, and 50% of the time was spent in counseling on Mr. Naeem Luna. CHIEF COMPLAINT: Left temporal lobe contusion. HISTORY OF PRESENT ILLNESS: I reviewed the notes of my colleague Kervin Bonilla PA-C, and agree its content. Ms. 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 This is inconsequential. Neurologically, on exam, he is at baseline. He has mumbling of his spee ch, follows commands; however, quite well in the right upper extremity. I will transfer him to our S ound Service and we will arrange followup in 1 month with a repeat head CT. I will sign off. DIAGNOSIS: Left temporal lobe hemorrhage status post fall.
--- NOTE | 2018-03-10 13:38 | CON ---
DATE OF CONSULTATION: 03/10/2018 REASON FOR CONSULTATION: Medical management. HISTORY OF PRESENT ILLNESS: Mr. Naeem Luna is a 77-year-old man with history of CVA with residual le ft-sided hemiplegia and garbled speech and hypertension who presented to the hospital after a fall an d sustained a small hemorrhage in the deep left temporal lobe. He was admitted to the Neurosurgery [facility] and after review the patient is not a surgical candidate as he is neurologically at his [facility] and family were not keen on pursuing any surgical intervention. Speech language pathology was con sulted to see the patient as well as PT/OT. The patient is currently at his baseline. He has no com plaints. He denies chest pain, shortness of breath. The only significant findings were the left-moustapha ed hemiplegia and garbled speech. Hospitalist Service were consulted for further management of this patient. PAST MEDICAL HISTORY: As stated in the HPI. PAST SURGICAL HISTORY: Noncontributory. FAMILY HISTORY: Reviewed and noncontributory. ALLERGIES: IODINE. REVIEW OF SYSTEMS: All systems reviewed and are negative except as stated in HPI. PHYSICAL EXAMINATION: VITAL SIGNS: Blood pressure 139/66, oxygen saturation 96% on room air, respiratory rate 16, pulse ra te 60. Temperature 97.9 degrees Fahrenheit. GENERAL: Not in acute distress. He is lying comfortably in bed. HEENT: Normocephalic, atraumatic. Moist mucosa. NECK: Supple, full range of movement. CARDIOVASCULAR: S1 and S2 only with regular rate and rhythm. No murmurs, rubs or gallops. RESPIRATORY: Vesicular breath sounds bilaterally. No wheezes or rales. ABDOMEN: Soft, nontender, nondistended. Bowel sounds normoactive. NEUROLOGIC: Alert and oriented x3. Has residual left hemiparesis and garbled speech. SKIN: Warm, dry, well-perfused. No rashes or lesions. MUSCULOSKELETAL: No edema. LABORATORY DATA: WBC 4.7, hemoglobin 10.7, platelet count 247. Serum chemistry unremarkable. INR 1 .1. Urinalysis with no overt abnormalities. IMAGING: Brain CT without contrast done on 03/09/2018 showed a tiny acute right subdural hematoma of the right frontal convexity and a tiny focal hemorrhagic contusion in the subcortical region of the left posterior temporal lobe. Repeat CT done 24 hours later showed a stable hypodense focus in the l eft temporal lobe with no evidence of intracranial hemorrhage. ASSESSMENT AND PLAN: 1. Hypertension. 2. Cerebrovascular accident with residual right hemiparesis. 3. Subdural hematoma. PLAN: The patient is neurologically at his baseline, so no surgical intervention is warranted. We w ill continue his home medications, keep an eye on his blood pressure and follow up with H[employer]GLISH TE[employer]ER arm PT/OT recommendations and likely discharge home tomorrow.
[2018-03-10] MEDS ORDERED: Amlodipine 5 MG TAB PO SCH (14:00)
[2018-03-10] MEDS ORDERED: Ramipril 5 MG CAP PO SCH (14:00)
[2018-03-10] MEDS: Sodium Chloride 0.9% 1,000 ML IV SCH (20:17)
[2018-03-10] MEDS: Carvedilol 25 MG TAB PO SCH (20:17)
[2018-03-10] MEDS ORDERED: CARVEDILOL 25 MG PO SCH (21:00)
[2018-03-11] MEDS: hydrALAZINE 20 MG/ML VIAL SLOW IVP PRN (04:33)
[2018-03-11] MEDS ORDERED: Amlodipine 5 MG TAB PO SCH (09:00)
[2018-03-11] MEDS ORDERED: Ramipril 5 MG CAP PO SCH (09:00)
[2018-03-11] MEDS ORDERED: Non-Formulary Item 1 EACH (Ramipril [Ramipril] 10 MG) PO SCH (09:00)
--- NOTE | 2018-03-11 09:50 | PDOC.PN ---
- Subjective Encounter Start Date: 03/11/18 Encounter Start Time: 10:06 Patient seen and examined. he had falls at home and was found to have stable bilateral parietal hematomas. No surgical intervention planned. PT/OT on board too and recommend SNF vs Rehab. He has no complaints today and no acute overnight events. - Objective Resuscitation Status: Resuscitation Status FULL:Full Resuscitation MAR Reviewed: Yes Vital Signs & Weight: Vital Signs (12 hours) Temp Pulse Resp BP BP Pulse Ox 03/11/18 08:00 98.7 F 64 16 132/68 96 03/11/18 04:33 61 163/72 H 03/11/18 03:35 98.4 F 61 20 163/72 H 96 03/10/18 23:51 98.3 F 60 16 140/72 95 Weight Weight 155 lb 8 oz I&O: 03/10/18 03/11/18 03/12/18 06:59 06:59 06:59 Intake Total 1177 Balance 1177 Result Diagrams: 03/10/18 03:59 03/10/18 03:59 Phys Exam - Physical Examination Constitutional: NAD HEENT: moist MMs, sclera anicteric, oral pharynx no lesions Neck: supple, full ROM Respiratory: no wheezing, no rales, no rhonchi, clear to auscultation bilateral Cardiovascular: RRR, no significant murmur, no rub Gastrointestinal: soft, non-tender, no distention, positive bowel sounds Musculoskeletal: no edema, pulses present Residual hemiparesis Dx/Plan (1) HTN (hypertension) Code(s): I10 - ESSENTIAL (PRIMARY) HYPERTENSION Status: Chronic Qualifiers: Hypertension type: essential hypertension Comment: Stable. Well controlled since home meds restarted. Continue home meds. (2) Subdural hematoma Code(s): S06.5X9A - TRAUM SUBDR HEM W LOC OF UNSP DURATION, INIT Status: Acute Comment: Stable and at baseline. Neurosurgery reviewed and no intervention planned. Repeat CT head showed no significant changes. (3) History of CVA (cerebrovascular accident) Code(s): Z86.73 - PRSNL HX OF TIA (TIA), AND CEREB INFRC W/O RESID DEFICITS Status: Chronic Comment: w residual hemiparesis and speech deficits. PT/OT and DIRECTOR VOICE on board. - Plan cont current plan of care, plan discussed w/ family, PT/OT, social media campaign manager, speech therapy * . Review of Systems - Medications/Allergies Allergies/Adverse Reactions: Allergies Allergy/AdvReac Type Severity Reaction Status Date / Time iodine Allergy Intermediate Verified 03/10/18 00:18 Medications: Current Medications Acetaminophen (Tylenol) 650 mg PO Q4H PRN PRN Reason: Headache/Fever or Pain Amlodipine Besylate (Norvasc) 5 mg PO DAILY [facility] Carvedilol (Coreg) 25 mg PO BID [facility] Last Admin: 03/10/18 20:17 Dose: 25 mg Hydralazine HCl (Apresoline) 5 mg SLOW IVP Q15MIN PRN PRN Reason: Sbp Greater Than 150 Last Admin: 03/11/18 04:33 Dose: 5 mg Sodium Chloride (Normal Saline 0.9%) 1,000 mls @ 30 mls/hr IV .Q24H [facility] Last Admin: 03/10/18 20:17 Dose: 1,000 mls Ramipril (Altace) 10 mg PO DAILY [facility] Sodium Chloride (Flush - Normal Saline) 10 ml IVF Q12HR [facility] Last Admin: 03/10/18 20:17 Dose: Not Given Sodium Chloride (Flush - Normal Saline) 10 ml IVF PRN PRN PRN Reason: Saline Flush
[2018-03-11] MEDS: Carvedilol 25 MG TAB PO SCH ×2 (10:00→16:44)
[2018-03-11 15:50] VITALS: TEMP 98.8
[2018-03-11 15:56] VITALS: BP 127/63
--- NOTE | 2018-03-11 17:03 | DIS ---
DATE OF ADMISSION: 03/09/2018 DATE OF DISCHARGE: 03/11/2018 DISCHARGE DIAGNOSES: Bilateral parietal hematoma, hypertension, history of CVA. HISTORY OF PRESENT ILLNESS/HOSPITAL COURSE: Mr. Jeremy Hartley is a 77-year-old male with a history of C VA with residual hemiparesis and garbled speech. He has had a history of hypertension, who presents to the hospital after a fall. Imagings showed a small hemorrhage in the deep left temporal lobe. He was admitted to the Neurosurgical Service after repeat CT showed stable hematoma. He was deemed not a surgical candidate as the patient was at his baseline. Family also was not keen on proceeding wit h any surgical intervention. PT/OT as well as speech language pathology was consulted to evaluate th e patient and the patient was deemed stable for discharge to inpatient rehabilitation facility only t o the findings with left-sided hemiparesis and garbled speech. DISCHARGE MEDICATIONS: Amlodipine 5 mg daily, atorvastatin 40 mg daily, carvedilol 25 mg b.i.d., and ramipril 10 mg daily. PHYSICAL EXAMINATION: GENERAL: He was examined on the day of discharge. VITAL SIGNS: Blood pressure 148/69, temperature 98 degrees Fahrenheit, pulse rate 64, respiratory ra te 20, oxygen saturation 96% on room air. For further details, please refer to today's progress note and physical examination only revealed his residual hemiparesis. The patient seems to be at his [facility] LABORATORY DATA: WBC 4.7, hemoglobin 10.7, and platelet count 247. Sodium 142, potassium 3.8, chlor ivory 106, carbon dioxide 30, anion gap 10, BUN 24, and creatinine 1.1. IMAGING DATA: Initial brain CT on arrival showed tiny acute subdural hematoma of the right frontal c onvexity with a tiny focal hemorrhage contusion in the subcortical region of the left posterior tempo ral lobe. Repeat showed no significant changes from the original. He also had a chest x-ray, hip x- ray, pelvic x-ray and cervical spine CT which showed degenerative changes of the cervical spine with no acute fracture. He also had a large heterogeneous thyroid does produce a mass effect on the trachea. PROCEDURES: None. CONSULTS: Hospitalist Service. The patient was admitted to the Neurosurgical Service and transferre d the patient to the hospitalist service. CONDITION ON DISCHARGE: Fair. CARE GOALS: To follow up with his primary care physician. Followup for repeat imaging as per thyroi d gland. ACTIVITY: As directed by PT/OT and speech language pathology. DIET: Low sodium, heart healthy. Discharge time is 65 minutes.
== END 2018-03-11 17:47 | DRG 83 ==
LOC: ERS 16:33 → 2SE 19:20
PROVIDERS: ADMIT Surgery; ATTEND Surgery
DX: S06.5X9A Traumatic subdural hemorrhage with loss of consciousness of unspecified duration, initial encounter (principal); I69.354 Hemiplegia and hemiparesis following cerebral infarction affecting left non-dominant side; W19.XXXA Unspecified fall, initial encounter; I10 Essential (primary) hypertension; Z95.0 Presence of cardiac pacemaker; R29.6 Repeated falls
CPT/HCPCS: 36415; 51701; 70450; 71045; 72125; 72170; 80048; 80053; 81003; 81015; 82553; 84484; 85025; 85610; 85730; 93005; G8978-GP-CM; G8979-GP-CL; G8996-GN-CL; G8997-GN-CK; J0360

== ENCOUNTER 2018-04-13 13:21 | Outpatient (CLI) | payer MEDICARE ==
--- NOTE | 2018-04-13 14:22 | CT ---
CT BRAIN: Date: 04/13/18 HISTORY: Poor historian. Subdural hematoma. FINDINGS/IMPRESSION: Noncontrast enhanced CT images of brain obtained Comparison made to previous exam from 03/10/18. Noncontrast enhanced CT images of the brain demonstrate diffuse cortical atrophy and deep white matte r ischemic changes. Area of hyperdensity seen in the left posterotemporal lobe region is unchanged since the previous exa m. This may represent an area of calcification as it has not significantly changed in the interim of 5 weeks. It is possible that this was an area of calcification rather than hemorrhage, as one would e xpect a hemorrhage to resolve at this point. I conflicted that this may represent a possible cavernoma. In retrospect, it may have been present ba ck on numerous previous comparison CT brain. POS: JESSICA
== END 2018-04-13 13:22 | disposition home or self-care (01) ==
LOC: TBSIIMAG 13:21
PROVIDERS: ATTEND Surgery
DX: I62.00 Nontraumatic subdural hemorrhage, unspecified (principal); R93.0 Abnormal findings on diagnostic imaging of skull and head, not elsewhere classified
CPT/HCPCS: 70450

== ENCOUNTER 2018-05-13 17:52 | Emergency (ER) | payer MEDICARE ==
[2018-05-13 20:22] LABS: Hemoglobin 11.7 g/dL (14.0-18.0); Mean Corpuscular Hemoglobin 35.4 pg (27.0-31.0); Mean Platelet Volume 6.4 fL (7.4-10.4); Platelet Count 204 thou/uL (130-400); RBC Distribution Width 13.2 % (11.5-14.5); Red Blood Cell (RBC) Count 3.31 mill/uL (4.70-6.10); White Blood Cell (WBC) Count 4.6 thou/uL (4.8-10.8)
[2018-05-13 20:42] LABS: ALT (SGPT) 13 U/L (8-55); AST (SGOT) 15 U/L (5-34); Albumin 3.5 g/dL (3.4-4.8); Alkaline Phosphatase 65 U/L (40-150); Anion Gap 10 mmol/L (10-20); BUN (Urea Nitrogen) 26 mg/dL (8.4-25.7); Bilirubin, Total 0.3 mg/dL (0.2-1.2); Calc. Creatinine Clearance 0 mL/min (70-130); Calcium 9.1 mg/dL (7.8-10.44); Carbon Dioxide 27 mmol/L (23-31); Chloride 108 mmol/L (98-107); Estimated GFR-MDRD Greater than 90; Globulin 3.3 g/dL (2.4-3.5); Glucose 81 mg/dL (83-110); Potassium 4.3 mmol/L (3.5-5.1); Protein, Total 6.8 g/dL (5.8-8.1); Sodium 141 mmol/L (136-145)
[2018-05-13 20:45] LABS: Eosinophils 3 % (0-10); Lymphocytes 48 % (21-51); MDiff Complete? YES; Monocytes 15 % (0-10); Neutrophil 34 % (42-75)
[2018-05-13 20:53] LABS: Bilirubin Negative (Negative); Blood, Urine Negative (Negative); Clarity CLEAR (Clear); Glucose, Urine (Dipstick) Negative (Negative); Leukocyte Small (Negative); Nitrite Negative (Negative); Protein, Urine (Dipstick) Negative (Neg-Trace); Specific Gravity, Urine 1.023 (1.002-1.036); pH, Urine 6.5 (5.0-9.0)
[2018-05-13 20:58] LABS: Bacteria/HPF None Seen HPF (None Seen); Pathc Cast-AUWi Flag 6.83 (0-2.49); RBC/HPF 0-3 HPF (0-3); WBC/HPF 0-3 HPF (0-3)
[2018-05-13 21:09] LABS: Hyaline Casts/LPF 0-3 HYALINE CAST LPF (0-3 Hyaline)
--- NOTE | 2018-05-13 21:10 | RAD ---
HISTORY: Fall three days ago with chest pain. AP view chest is obtained on 05/13/18. Comparison made to previous exam from 03/09/18. AP view chest demonstrates the lungs to be well aerated. No evidence of active intrathoracic disease seen. No evidence of effusions, pneumonia, or pneumothorax seen. 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 IMPRESSION: Unremarkable AP view chest. POS: FFK
--- NOTE | 2018-05-13 21:11 | RAD ---
AP VIEW PELVIS: 05/13/18 HISTORY: Fall three days ago with pelvic pain. AP view pelvis is obtained on 05/13/18. Comparison made to previous exam from 03/09/18. AP view pelvis demonstrates the pelvis to be unremarkable. No evidence of pelvic fractures, subluxati ons, or bony lesions seen. IMPRESSION: Unremarkable AP view pelvis. POS: FFK
--- NOTE | 2018-05-13 21:28 | CT ---
CT BRAIN 05/13/18 HISTORY: Fall. Noncontrast enhanced CT images of the brain is obtained on 05/13/18. Comparison made to previous exam from 04/13/18. Noncontrast enhanced CT images of the brain demonstrate cortical atrophy and deep white matter ischem ic changes. No evidence of acute intracranial masses, hemorrhages, strokes or contusions seen. IMPRESSION: No evidence of acute intracranial pathology seen. POS: KADEK
== END 2018-05-14 01:00 | disposition home or self-care (01) ==
LOC: ERS 17:52
DX: S70.02XA Contusion of left hip, initial encounter (principal); I10 Essential (primary) hypertension; W19.XXXA Unspecified fall, initial encounter
CPT/HCPCS: 36415; 51701; 70450; 71045; 72125; 72170; 80053; 81003; 81015; 85025

== ENCOUNTER 2018-09-25 13:48 | Inpatient (IN) | payer MEDICARE ==
[2018-09-25] MEDS ORDERED: Dexamethasone 10 MG/ML VIAL ONE (14:28)
[2018-09-25 14:50] LABS: Hemoglobin 9.8 g/dL (14.0-18.0); Mean Corpuscular HGB CONC 30.4 g/dL (32.0-36.0); Mean Corpuscular Hemoglobin 31.3 pg (27.0-31.0); Mean Platelet Volume 7.8 fL (7.4-10.4); Platelet Count 421 thou/uL (130-400); RBC Distribution Width 13.1 % (11.5-14.5); Red Blood Cell (RBC) Count 3.12 mill/uL (4.70-6.10); White Blood Cell (WBC) Count 8.5 thou/uL (4.8-10.8)
[2018-09-25] MEDS ORDERED: Albuterol Sulfate 2.5 mg/0.5 ml Neb ONE ×2 (14:54→14:55)
[2018-09-25 15:08] LABS: Band 37 % (5-11); Lymphocytes 13 % (21-51); MDiff Complete? YES; Macrocytosis SLIGHT = 6-15 cells (100X) (0-5/hpf); Metamyelocyte 1 % (0-0); Monocytes 2 % (0-10); Neutrophil 46 % (42-75); PLT Morphology Comment Appears Increased; Polychromasia SLIGHT = 2-3 cells (100X) (0-2/hpf); Vacuoles SLIGHT
[2018-09-25 15:11] LABS: ALT (SGPT) 9 U/L (8-55); AST (SGOT) 12 U/L (5-34); Albumin 2.4 g/dL (3.4-4.8); Alkaline Phosphatase 86 U/L (40-150); Anion Gap 19 mmol/L (10-20); BUN (Urea Nitrogen) 76 mg/dL (8.4-25.7); CK (CPK) 158 U/L (30-200); Calc. Creatinine Clearance 0 mL/min (70-130); Calcium 9.4 mg/dL (7.8-10.44); Carbon Dioxide 23 mmol/L (23-31); Chloride 119 mmol/L (98-107); Estimated GFR-MDRD 19; Globulin 4.9 g/dL (2.4-3.5); Glucose 120 mg/dL (83-110); Lipase 12 U/L (8-78); Potassium 4.4 mmol/L (3.5-5.1); Protein, Total 7.3 g/dL (5.8-8.1); Sodium 157 mmol/L (136-145)
[2018-09-25 15:12] LABS: Actual Bicarbonate (HCO3a) 23.1 mEq/L (22-28); Analyzer IN Cardio ER; Base Excess (BEa) -1.6 mEq/L (-2.0 to +3.0); CO2 Tension 39.1 mmHg (35.0-45.0); Calcium, Ionized 1.14 mmol/L (1.12-1.30); Carboxyhemoglobin (COHb) 0.7 gm% (0.0-3.0); Hemoglobin (Hb) 12.2 g/dL (14.0-18.0); O2 Tension (PaO2) 62.2 mmHg (> 60.0); Potassium - ABG Lab 3.64 mmol/L (3.70-5.30); pH, Arterial 7.39 (7.35-7.45)
[2018-09-25 15:14] LABS: CKMB 1.3 ng/mL (0-6.6)
[2018-09-25 15:15] LABS: ALV-art Gradient 38.655 (0-20); Puncture Site LA
[2018-09-25 15:24] LABS: Bilirubin Moderate (Negative); Blood, Urine Negative (Negative); Clarity CLOUDY (Clear); Glucose, Urine (Dipstick) Negative (Negative); Leukocyte Small (Negative); Protein, Urine (Dipstick) Negative (Neg-Trace); Specific Gravity, Urine 1.023 (1.002-1.036)
[2018-09-25 15:27] LABS: Bacteria/HPF None Seen HPF (None Seen)
[2018-09-25 15:29] LABS: Pathc Cast-AUWi Flag 21.37 (0-2.49)
[2018-09-25 15:39] LABS: Nitrite Unable to Interpret (Negative)
[2018-09-25 15:40] LABS: Crystals/HPF 1+ CA OXALATE HPF (Negative); Hyaline Casts/LPF 7-10 HYALINE CAST LPF (0-3 Hyaline); Other Casts/LPF 0-3 FINELY GRAN LPF (0-3 Hyaline); Yeast-All Forms 1+ HPF (None Seen)
[2018-09-25 15:41] LABS: Renal Epithelial 0-3 HPF (0-3); Transitional Epithelial 0-3 HPF (0-3)
--- NOTE | 2018-09-25 15:57 | RAD ---
PORTABLE AP CHEST XRAY: DATE: 09/25/2018. HISTORY: Dyspnea. Recently diagnosed with pneumonia. COMPARISON: 05/13/2018. FINDINGS: Dual-lead right subclavian cardiac pacemaking device remains in place. There has been interval devel opment of a large right pleural effusion and associated atelectasis. The left lung is clear. Cardia c silhouette is magnified by projection. The pulmonary vasculature is at the upper limits of normal. Vascular calcifications are seen in the thoracic aorta. IMPRESSION: Large right pleural effusion and atelectasis. POS: LEIGH
[2018-09-25 16:09] LABS: Troponin I 0.047 ng/mL (< 0.028)
[2018-09-25] MEDS ORDERED: Dextrose 5% in Water 1,000 ML IV SCH (16:15)
--- NOTE | 2018-09-25 16:23 | CT ---
NONCONTRAST CT THORAX: Date: 09-25-18 History: Diagnosed with pneumonia. Diminished oxygen saturation. Labored breathing. Comparison: CT cervical spine, 05-13-18. FINDINGS: Right subclavian cardiac pacemaking device is noted in place. There is a large right pleural effusion which may be partially loculated with associated consolidatio n likely related to passive atelectasis. As noted on prior CT cervical spine, there is a large right sided neck mass which extends into the me diastinum likely related to large thyroid mass/goiter. This was also present on a prior study on 08-29. There is heterogeneity involving the thyroid gland with prominence of a left lobe of the thyroi d gland with associated calcifications present. There is a tiny pericardial effusion. Vascular calcifications are seen in the coronary arteries as well as involving the thoracic aorta. There is volume loss seen in the left lower lobe. Left lung is otherwise clear. No left pleural effus ion is present. There are multiple hypodense lesions seen involving the kidneys bilaterally, some of which are incomp letely imaged. The largest on the right measures 3.1 cm. Findings are statistically most likely rela gerardo to renal cysts. However, there is a exophytic increased density lesion seen at the posterior aspe ct superior pole right kidney measuring 2.2 cm which cannot be characterized as a simple cyst. This c ould represent a hypodense cyst. However, this was prior on CT abdomen on 12-08-17 although demonstrat ed diminished attenuation on that study. The largest cyst in this region has in size. Degenerative changes are seen in the spine. There is bilateral glenohumeral osteoarthropathy and acro mioclavicular joint osteoarthritis. IMPRESSION: 1. Interval development of a large right pleural effusion, a portion of which is partially loculated. Area of consolidation on the right is probably attributable to passive atelectasis. 2. Enlarged heterogeneous thyroid gland much larger involving the right lobe of the thyroid gland whi ch may be related to thyroid goiter. This is unchanged from prior study including studies dating back to 2017. 3. Left lung is clear. 4. Multiple hypodense bilateral renal lesions incompletely imaged which were also seen on prior CT ex am on 12-08-17 and demonstrated findings most compatible with cysts. 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 POS: JESSICA
--- NOTE | 2018-09-25 17:30 | HP ---
REASON FOR ADMISSION: Acute respiratory failure with hypoxia, pneumonia with likely parapneumonic effusion on the right, acute kidney injury, severe dehydration. HISTORY OF PRESENTING ILLNESS: Please note, the patient is a resident of [facility] and is currently obtunded. Majority of this history is obtained by talking to two daughters at bedside and the ER physician, Dr. Lopez. The patient apparently had upper respiratory infection, signs and symptoms yesterday at the [facility]. He was started on antibiotic. This morning, his shortness of breath got worse and he was started on nebulizers along with antibiotics and finally they had to transfer him to the emergency room as he was not doing well. PAST MEDICAL AND SURGICAL HISTORY: History of prior subdural hematoma; history of left temporal lobe hemorrhage status post fall in the month of February; hypertension; history of CVA with prior left hemiparesis; diastolic dysfunction; pacemaker; dyslipidemia; osteoarthritis; recurrent falls; dementia; lumbar radiculopathy; coronary artery disease; right inguinal hernia repair; cystoscopies; history of urethral stricture. CURRENT MEDICATIONS: Per [facility] records, the patient is on, 1. Ramipril 10 mg daily. 2. Prednisone which was started on at 50 mg daily. 3. Multivitamin one tablet once daily. 4. Misoprostol 200 mcg three times daily. 5. Norvasc 5 mg daily. 6. Aspirin 325 mg daily. 7. Coreg 25 mg p.o. twice daily. 8. Omnicef 300 mg twice daily, which was started on the . 9. Colace 100 mg daily. 10. Diclofenac 50 mg three times daily p.r.n. 11. Pepcid 20 mg twice daily. 12. Folic acid 1 mg daily. 13. Lasix 20 mg twice daily. 14. Methotrexate 20 mg every Wednesday. ALLERGIES: ALLERGIC TO IODINE. PERSONAL HISTORY: Does not abuse alcohol or drugs. No history of smoking. FAMILY HISTORY: There is history of heart disease in the family. REVIEW OF SYSTEMS: Cannot be obtained as the patient is not oriented. CODE STATUS: DNR. I have just discussed this with the patient's two daughters , who were also his power of energy attorney, Ms. Dionne Oreilly and Fernando Steven Alexis Weston number to reach them; [phone] and [phone]. The patient is a do not resuscitate per the POA. PHYSICAL EXAMINATION: GENERAL: The patient is an 78-year-old male, who is currently obtunded and is in respiratory distress. VITAL SIGNS: Blood pressure 106/64, pulse 64 per minute, respiratory rate 26 per minute, temperature 98.6 degrees Fahrenheit, and saturating 97% on 35% Venti mask. NECK: Supple. No elevated JVD. EYES: Extraocular muscles are intact. Pupils are reacting to light. Oral cavity, mucous membranes are dry. No exudates or congestion. CARDIOVASCULAR SYSTEM: S1 and S2 heard. Regular rhythm. RESPIRATORY system: Air entry is decreased on the right hemithorax. Rhonchi plus bilateral. ABDOMEN: Soft. Bowel sounds heard. No tenderness, rigidity, or guarding. EXTREMITIES: No peripheral edema or calf tenderness. VASCULAR SYSTEM: Peripheral pulses 1+ bilateral. No ischemic ulcerations or gangrene. CENTRAL NERVOUS SYSTEM: No gross focal signs seen. The patient has prior history of left hemiparesis. Full neurologic exam is difficult to perform due to patient's obtunded status at present. PSYCHIATRIC SYSTEM: No obvious hallucinations or delusions at present. LABORATORY DATA: White count of 8, hemoglobin and hematocrit 10 and 32, platelet count 421 with 46% neutrophils and 37% bands. Blood gas done shows a pH of 7.39 , pCO2 of 39, PO2 of 62. Sodium 157, chloride 119, serum bicarb 23, BUN 76, creatinine 3.7, glucose 120. BNP is 266. Troponin I 0.04. Albumin is 2.4. Lipase is 12. UA shows small leuk esterase, 7 to 10 wbc's, 1+ yeast. EKG done shows paced rhythm at 66 beats per minute. CLINICAL IMPRESSION AND PLAN: The patient will be admitted to ICU for acute respiratory failure with hypoxia, pneumonia with likely right parapneumonic effusion, acute kidney injury, severe dehydration. He will be hydrated with D5 water at 125 mLs/hr, blood and urine cultures have been obtained in the ER. He will be on cefepime, Levaquin, and if needed, vancomycin will be added. The patient is not conscious at present and we will try to place him on BiPAP if he tolerates. I have spoken to Dr. Mondragon for pulmonology and likely will need right thoracentesis. I have spoken with Dr. Fofana for Nephrology consultation as well. The two children and power of energy attorney for Mr. Luna are aware of the patient's poor prognosis. They want him to be a do not resuscitate, but want everything done, stopping short of it. We will keep him n.p.o. for now until he wakes up and be on DuoNeb q.6 hourly and we will also add a small dose of steroids to perk him up a little bit. Job ID: [id number] MTDD
--- NOTE | 2018-09-25 17:32 | CON ---
DATE OF CONSULTATION: TYPE OF CONSULTATION: Nephrology. REASON FOR CONSULTATION: Elevated creatinine. HISTORY OF PRESENT ILLNESS: This is a very pleasant 78-year-old gentleman, who presented to the hospital with a baseline creatinine 0.95, which increased to 3.7 today. He has had other episodes of acute kidney injury in the last few years. The patient can give no history, has altered mental status and is resting. PAST MEDICAL HISTORY: Significant for dementia, CVA, and halfway resident. FAMILY HISTORY: Negative for ESRD. SOCIAL HISTORY: No tobacco, alcohol, or drug use. REVIEW OF SYSTEMS: Unobtainable. PHYSICAL EXAMINATION: GENERAL: The patient is resting well. VITAL SIGNS: Afebrile pulse 90, breathing 16, and blood pressure 90/53. GENERAL APPEARANCE AND MENTAL STATUS: Fair. HEAD/NECK: Normocephalic. Atraumatic. EYES: EOMI. No deformity. EARS: Clear. No ulcers. NOSE: Intact. No lesions. MOUTH: Clear. No discharge. THROAT: Clear. No exudate. LUNGS: Clear. No crackles. CARDIAC: S1, S2. No rub. ABDOMEN: Benign. Bowel sounds positive. GENITALIA/RECTUM: Vargas absent. BACK/EXTREMITIES: Edema 0+. NEUROLOGICAL: The patient is incoherent and resting. SKIN: LYMPHATICS: LABORATORY DATA: Labs show sodium 157, potassium 4.4, creatinine 2.7. ASSESSMENT AND PLAN: 1. Chronic kidney disease due to decreased effective arterial blood volume. Continue gentle hydration. 2. Hypertension, stable. 3. Anemia, stable. 4. Hypotension, probably sepsis. Overall prognosis is poor. We will check the sodium every 4 to 6 hours and decrease IV fluids as needed. Job ID: [id number]
[2018-09-25 19:53] LABS: Lactic Acid 3.9 mmol/L (0.5-2.2)
[2018-09-25 20:17] VITALS: BMI 21.0
[2018-09-25] MEDS: Dextrose 5% in Water 1,000 ML IV SCH (20:40)
[2018-09-25] MEDS: Famotidine/PF 20 mg/2ml Vial SLOW IVP SCH (20:59)
[2018-09-25] MEDS ORDERED: Cefepime 1 GM in Sodium Chloride 0.9% 100 ML IVPB SCH (21:00)
[2018-09-25 21:32] LABS: Anion Gap 23 mmol/L (10-20); BUN (Urea Nitrogen) 83 mg/dL (8.4-25.7); Calc. Creatinine Clearance 14 mL/min (70-130); Calcium 8.8 mg/dL (7.8-10.44); Carbon Dioxide 16 mmol/L (23-31); Chloride 124 mmol/L (98-107); Estimated GFR-MDRD 18; Glucose 152 mg/dL (83-110); Potassium 5.8 mmol/L (3.5-5.1); Sodium 157 mmol/L (136-145)
[2018-09-25] MEDS ORDERED: [UNRECOGNIZED DRUG - OTHER] IVPB PRN (21:43)
[2018-09-25] MEDS ORDERED: Sodium Chloride 0.9% 1,000 ML IV SCH (22:15)
[2018-09-25 22:35] LABS: Pleural Fluid, Amylase 30 U/L (Not Available); Pleural Fluid, Glucose Less than 20 mg/dL; Pleural Fluid, LDH 4468 U/L (Not Available); Pleural Fluid, Protein 4.8 g/dL
[2018-09-25 22:46] LABS: BF Color Yellow; Body Fluid Source PLEURAL FLUID; Clarity Hazy (Clear); Tube # EDTA
[2018-09-25 22:47] LABS: RBC Count-Automated 222000 /cumm; WBC/NonHematic-Auto 184000 /cumm
[2018-09-25] MEDS: Piperacillin/Tazobactam 2.25 GM in Sodium Chloride 0.9% 100 ML IVPB SCH (23:08)
[2018-09-25 23:13] LABS: BF Segmented Neutrophils 97 %; Cell Count Non Hematic 1 %; Lymphocytes 2 %
--- NOTE | 2018-09-26 00:20 | CON ---
DATE OF CONSULTATION: 09/25/2018 SERVICE: Pulmonary Medicine. REASON FOR CONSULT: Pleural effusion, ICU patient. 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 Apparently, he is quite debilitated at baseline. He was found obtunded this morning at his nursing facility. He had increasing work of breathing. He was initiated on antibiotic, but decompensated and was transferred to the emergency department. Chest x-ray showed a large pleural effusion. CT scan was performed. The results are discussed below. He cannot provide any additional elements of the history because of his encephalopathy. PAST MEDICAL HISTORY: 1. CVA. 2. Hypertension. 3. Dyslipidemia. 4. Chronic diastolic heart failure. 5. Dense left-sided hemiplegia. 6. Osteoarthritis. 7. Dementia. 8. Lumbar radiculopathy. 9. History of coronary artery disease. PAST SURGICAL HISTORY: 1. Urethral stricture. 2. Right inguinal hernia repair. SOCIAL HISTORY: He is currently a resident of a nursing facility. He has no access to alcohol, tobacco, or illicit drug use. FAMILY HISTORY: Noncontributory. ALLERGIES: IODINE. MEDICATIONS: List of his inpatient medications was reviewed. Multiple small updates were made. REVIEW OF SYSTEMS: Could not be obtained as the patient is currently obtunded. PHYSICAL EXAMINATION: VITAL SIGNS: Afebrile, pulse 64, blood pressure 85/40, respirations 21, saturation 100% on 2 L nasal cannula. HEENT: Normocephalic and atraumatic. Sclerae white. Conjunctivae pink. Oral mucosa is moist without lesions. LUNGS: Decreased air entry on the right. Good air entry on the left. There is no prolonged expiratory phase or wheezing appreciated. HEART: Normal rate regular. ABDOMEN: Soft, nontender, and nondistended. Bowel sounds are positive. MUSCULOSKELETAL: No cyanosis or clubbing. There is no pitting in the bilateral lower extremities. NEUROLOGIC: Grossly nonfocal. LABORATORY DATA: WBC 8.5, hemoglobin 9.8, platelets 421,000. Band count is 37% . PH 7.39, pCO2 of 39, PO2 of 62, corresponding to saturation of 89%. At this time, he was on room air. Creatinine 3.84, which is significantly worse than baseline. Sodium 157, potassium 5.8, chloride 124, bicarb 26, BUN 83. Lactate is 3.9 and up-trending. Troponin is 0.047. Liver function studies are unremarkable. BNP 266. Urinalysis is unremarkable. IMAGING: There is a large effusion on the right on the chest x-ray. Left lung appears to be relatively spared. CT of the chest demonstrates loculated effusion in the right lung. The left lung is essentially unremarkable. There is a dense infiltrate in the right lower lobe. This is mostly in the posterior segments. ASSESSMENT: 1. Acute hypoxic respiratory failure. 2. Severe sepsis. 3. Acute kidney injury. 4. Healthcare-associated pneumonia. 5. Empyema, suspected. 6. Dementia, advanced. DISCUSSION AND PLAN: We will continue antibiotics, nebulized medications, and steroids. I will do a thoracentesis at bedside today. If it appears that this fluid is infected, he will likely need chest tubes and/or decortication. That being said, given his advanced debility, I do not think he is a good candidate for decortication. Cardiothoracic Surgery consultation will be placed as my suspicion is he is going to require definitive drainage. I agree with the Palliative Care consultation, which is currently pending. We will continue the free water for the time being, but if his sodium corrects back panel padder to the normal range, we will need to transition over to half NS. 70 minutes have been devoted to this patient in various activities. I personally reviewed all imaging studies and laboratory data noted within this document. For fifty percent of this time, I was interacting with the patient at the bedside or coordinating care with the care team. For the remainder of the time I was immediately available to the patient in the hospital unit. Job ID: [id number] [facility]
[2018-09-26] MEDS: Dextrose 5% in Water 1,000 ML IV SCH ×2 (03:52→13:15)
[2018-09-26] MEDS: Piperacillin/Tazobactam 2.25 GM in Sodium Chloride 0.9% 100 ML IVPB SCH ×3 (05:08→17:31)
[2018-09-26 05:59] LABS: Anion Gap 17 mmol/L (10-20); BUN (Urea Nitrogen) 83 mg/dL (8.4-25.7); Calc. Creatinine Clearance 15 mL/min (70-130); Calcium 8.7 mg/dL (7.8-10.44); Carbon Dioxide 22 mmol/L (23-31); Chloride 118 mmol/L (98-107); Estimated GFR-MDRD 21; Glucose 224 mg/dL (83-110); Potassium 4.1 mmol/L (3.5-5.1); Sodium 153 mmol/L (136-145)
[2018-09-26 06:18] LABS: Band 27 % (5-11); Hemoglobin 11.1 g/dL (14.0-18.0); Lymphocytes 10 % (21-51); MDiff Complete? YES; Mean Corpuscular Hemoglobin 30.4 pg (27.0-31.0); Mean Platelet Volume 7.8 fL (7.4-10.4); Monocytes 2 % (0-10); Neutrophil 61 % (42-75); PLT Morphology Comment Appears Adequate; Platelet Count 385 thou/uL (130-400); RBC Distribution Width 13.1 % (11.5-14.5); Red Blood Cell (RBC) Count 3.66 mill/uL (4.70-6.10); White Blood Cell (WBC) Count 6.8 thou/uL (4.8-10.8)
[2018-09-26] MEDS ORDERED: Enoxaparin Sodium 30 MG/0.3 ML SYRINGE SC SCH (09:00)
[2018-09-26] MEDS ORDERED: Sodium Chloride 0.9% 250 ML IV SCH (09:15)
--- NOTE | 2018-09-26 10:30 | PRG ---
DATE OF SERVICE: 09/26/2018 SUBJECTIVE: An 78-year-old gentleman, being seen for hypernatremia. OBJECTIVE: CONSTITUTIONAL: The patient is resting well. VITAL SIGNS: Afebrile. Pulse 62, breathing 16, blood pressure 94/64. GENERAL APPEARANCE AND MENTAL STATUS: Fair. HEAD/NECK: Normocephalic. Atraumatic. EYES: EOMI. No deformity. EARS: Clear. No ulcers. NOSE: Intact. No lesions. MOUTH: Clear. No discharge. THROAT: Clear. No exudate. LUNGS: Clear. No crackles. CARDIAC: S1, S2. No rub. ABDOMEN: Benign. Bowel sounds positive. GENITALIA/RECTUM: Vargas absent. BACK/EXTREMITIES: Edema 0+. NEUROLOGICAL: Alert and motor intact. LABORATORY DATA: Labs show hemoglobin 11, sodium 153. ASSESSMENT AND RECOMMENDATION: 1. Hypernatremia, improved. 2. Hyperkalemia, improved. 3. Acute kidney injury, improving. No indication for dialysis. Job ID: [id number]
--- NOTE | 2018-09-26 10:55 | PRG ---
DATE OF SERVICE: 09/26/2018 SUBJECTIVE: Mr. Luna remains in the CCU. He has aphasia with difficulty expressing himself. He appears to be stable in my opinion. OBJECTIVE: VITAL SIGNS: Temperature is 98.8, pulse 54, blood pressure 94/44, O2 saturation 100%. A 24-hour intake 1935, output 420. HEENT: Unremarkable. NECK: No JVD. LUNGS: He has almost absent breath sounds on the right, clear on the left. CARDIAC: S1 and S2, regular. ABDOMEN: Soft and nontender. EXTREMITIES: No edema. LABORATORY DATA: White blood cell count 6.8, hematocrit 37.1, and platelet count 385. Sodium 153, potassium 4.1, chloride 118, CO2 of 23, BUN 83, creatinine 3.5, glucose 224. Pleural fluid demonstrated a glucose less than 20, LDH 4468, significantly high white blood cell count. ASSESSMENT: Right-sided empyema. PLAN: I have spoken with the family. The patient has a positive Gram stain on the fluid and has numbers that are indicative of empyema. He will need drainage or decortication. Based on the CT scan, I think we could probably treat this with chest tube provided the fluid is not too thick. I consulted Dr. Leonardo Worthington. We will follow. Job ID: [id number]
[2018-09-26] MEDS ORDERED: Lidocaine 1% (PF) 30 ML VIAL ONE (11:01)
--- NOTE | 2018-09-26 11:24 | RAD ---
CHEST 1 VIEW: HISTORY: Status post chest tube insertion COMPARISON: 09/25/2018. FINDINGS: There is interval placement of a large-bore right-sided chest tube. Interval resolution of previousl y noted pleural fluid. Small loculated pneumothorax does remain. Opacification of the left lung par enchyma may represent atelectasis or pneumonia. Stable configuration of the cardiac silhouette. Sta ble atherosclerosis. Stable aeration of the left lung. Right-sided transvenous pacemaker is once ag ain demonstrated. IMPRESSION: Interval placement of a large-bore right-sided chest tube with resolution of previously noted right-s ided pleural fluid. POS: [facility]
--- NOTE | 2018-09-26 11:43 | CON ---
DATE OF CONSULTATION: 09/26/2018 REASON FOR CONSULTATION: The patient for a right empyema. HISTORY OF PRESENT ILLNESS: [facility]. [facility] is a [facility] resident, who is status post cerebrovascular accident in February of 2018. He presented with labored breathing. Chest x-ray showed a large right chest fluid collection. He underwent thoracentesis with purulent fluid evacuation. Only enough fluid was taken for culture. I have been asked to see him for further treatment. PAST MEDICAL HISTORY: 1. Cerebrovascular accident. 2. Hypertension. 3. Dyslipidemia. 4. Chronic diastolic heart failure. 5. Left-sided hemiplegia. 6. Osteoarthritis. 7. Dementia. 8. Coronary artery disease. PAST SURGICAL HISTORY: 1. Urethral stricture. 2. Right hernia repair. SOCIAL HISTORY: He is a resident of nursing facility. He does not communicate. FAMILY HISTORY: Noncontributory. ALLERGIES: IODINE. MEDICATIONS: Have been reviewed. PHYSICAL EXAMINATION: GENERAL: This is an elderly gentleman with labored breathing in the intensive care unit. VITAL SIGNS: His temperature is 98.8, pulse is 69, and blood pressure is 111/72. LUNGS: Have diminished breath sounds throughout. His respiratory rate is approximately 20 and he has grunting respirations. HEART: Rhythm is regular. ABDOMEN: Soft and nontender. EXTREMITIES: No edema. LABORATORY DATA: Chest x-ray and CT have been reviewed. Laboratory of note, hemoglobin is 11.1 and white blood cell count is 6.8. Creatinine is 3.48. ASSESSMENT AND PLAN: Right-sided empyema. He has been on broad-spectrum antibiotics. Gram stain shows gram-positive cocci. I discussed chest tube placement with the family and they are agreeable and signed consent. Job ID: [id number]
--- NOTE | 2018-09-26 12:42 | PDOC.PN ---
- Subjective Encounter Start Date: 09/26/18 Encounter Start Time: 11:40 Subjective: awakens easily, non verbal -: follows verbal stimuli sometimes -: not in distress - Objective Resuscitation Status - Order Detail: 09/25/18 21:29 Resuscitation Status Routine Resuscitation Status: PRTL: Chem-Intubation Discussed with: family wants chem and intubation MAR Reviewed: Yes Vital Signs & Weight: Vital Signs (12 hours) Temp Pulse Resp Pulse Ox 09/26/18 11:55 98.7 F 09/26/18 11:29 100 09/26/18 08:00 66 26 H 09/26/18 07:20 100 09/26/18 07:00 98.8 F 09/26/18 03:00 98.6 F Weight Weight 142 lb 6.698 oz Most Recent Monitor Data Heart Rate from ECG 63 NIBP 95/51 NIBP BP-Mean 65 Respiration from ECG 25 SpO2 100 I&O: 09/25/18 09/26/18 09/27/18 06:59 06:59 06:59 Intake Total 1935 640 Output Total 420 1860 Balance 1515 -1220 Result Diagrams: 09/26/18 05:30 09/26/18 05:30 Phys Exam - Physical Examination HEENT: PERRLA, sclera anicteric Neck: no JVD, supple Respiratory: no wheezing decreased air entry right infra axillary area Cardiovascular: RRR, no significant murmur Gastrointestinal: soft, non-tender, positive bowel sounds Musculoskeletal: no edema, pulses present ?left hemiparesis, moves right side better, aphasia Dx/Plan (1) Empyema lung Code(s): J86.9 - PYOTHORAX WITHOUT FISTULA Status: Acute Comment: has chest tube (2) PNA (pneumonia) Code(s): J18.9 - PNEUMONIA, UNSPECIFIED ORGANISM Status: Acute Qualifiers: Pneumonia type: aspiration pneumonia Laterality: right Lung location: lower lobe of lung (3) Acute encephalopathy Code(s): G93.40 - ENCEPHALOPATHY, UNSPECIFIED Status: Acute (4) Acute respiratory failure with hypoxia Code(s): J96.01 - ACUTE RESPIRATORY FAILURE WITH HYPOXIA Status: Resolved (5) GENESIS (acute kidney injury) Code(s): N17.9 - ACUTE KIDNEY FAILURE, UNSPECIFIED Status: Acute (6) Severe dehydration Code(s): E86.0 - DEHYDRATION Status: Acute (7) Moderate protein-calorie malnutrition Code(s): E44.0 - MODERATE PROTEIN-CALORIE MALNUTRITION Status: Chronic (8) FTT (failure to thrive) in adult Status: Chronic (9) HTN (hypertension) Code(s): I10 - ESSENTIAL (PRIMARY) HYPERTENSION Status: Chronic Qualifiers: Hypertension type: essential hypertension (10) History of CVA (cerebrovascular accident) Code(s): Z86.73 - PRSNL HX OF TIA (TIA), AND CEREB INFRC W/O RESID DEFICITS Status: Chronic Comment: w residual hemiparesis and speech deficits. (11) Sepsis Code(s): A41.9 - SEPSIS, UNSPECIFIED ORGANISM Status: Acute Qualifiers: Sepsis type: sepsis due to unspecified organism Qualified Code(s): A41.9 - Sepsis, unspecified organism - Plan is on vanc and zosyn -: nebs, D5W -: may dc steroids if ok with pulm -: poor prognosis, was DNAR yesterday then family changed him to no compressio -: -n but intubation is OK per staff. Speech eval for oral intake/nutrition * . Review of Systems - Medications/Allergies Allergies/Adverse Reactions: Allergies Allergy/AdvReac Type Severity Reaction Status Date / Time iodine Allergy Intermediate Verified 03/10/18 00:18 Medications: Current Medications Acetaminophen (Tylenol) 650 mg WV Q4H PRN PRN Reason: Headache/Fever/Mild Pain (1-3) Albuterol/Ipratropium (Duoneb) 3 ml NEB [id number] AIDAN Last Admin: 09/26/18 08:00 Dose: 3 ml Famotidine (Pepcid) 20 mg SLOW IVP QPM AIDAN Last Admin: 09/25/18 20:59 Dose: 20 mg Heparin Sodium (Porcine) (Heparin) 5,000 units SC BID AIDAN Vancomycin HCl 500 mg/ Sodium (Chloride) 100 mls @ 100 mls/hr IVPB Q24HR@1500 AIDAN Dextrose/Water (D5w) 1,000 mls @ 100 mls/hr IV .Q10H AIDAN Last Admin: 09/26/18 03:52 Dose: 1,000 mls Piperacillin Sod/Tazobactam (Sod 2.25 gm/ Sodium Chloride) 100 mls @ 200 mls/ hr IVPB Q6HR AIDAN Last Admin: 09/26/18 11:03 Dose: 100 mls Methylprednisolone Sodium Succinate (Solu-Medrol) 20 mg IVP Q8HR [facility] Last Admin: 09/26/18 05:08 Dose: 20 mg Miscellaneous Medication (Pharmacy To Dose) 0 each IVPB PRN PRN PRN Reason: VANC PHARMACY TO DOSE Sodium Chloride (Flush - Normal Saline) 10 ml IVF Q12HR [facility] Last Admin: 09/26/18 08:52 Dose: 10 ml Sodium Chloride (Flush - Normal Saline) 10 ml IVF PRN PRN PRN Reason: Saline Flush
[2018-09-26 12:49] LABS: Sodium 152 mmol/L (136-145)
[2018-09-26] MEDS: Vancomycin HCl 500 MG in Sodium Chloride 0.9% 100 ML IVPB SCH (15:10)
--- NOTE | 2018-09-26 16:39 | OP ---
DATE OF PROCEDURE: 09/26/2018 PREOPERATIVE DIAGNOSIS: Right-sided empyema. POSTOPERATIVE DIAGNOSIS: Right-sided empyema. PROCEDURE PERFORMED: Right tube thoracostomy. ANESTHESIA: 1% lidocaine for local. DESCRIPTION OF PROCEDURE: After consent was obtained from the family, right chest wall was prepped and draped in the usual sterile fashion. Skin and subcutaneous tissues were anesthetized with 1% lidocaine. Skin incision was made. The pericostal area was then anesthetized with the remainder of the 1% lidocaine. The chest was sharply entered with scissors. The incision was spread and a 32-Romanian chest tube placed posteriorly. There was an immediate return of 1700 mL of purulent fluid. The patient's respirations became much less labored at that point. Tube was secured with silk suture. Followup chest x-ray shows good tube positioning with almost complete evacuation of the chest. Job ID: [id number]
[2018-09-26] MEDS: Famotidine/PF 20 mg/2ml Vial SLOW IVP SCH (21:45)
[2018-09-27] MEDS: Dextrose 5% in Water 1,000 ML IV SCH ×3 (00:02→18:50)
[2018-09-27] MEDS: Piperacillin/Tazobactam 2.25 GM in Sodium Chloride 0.9% 100 ML IVPB SCH ×4 (00:02→17:55)
[2018-09-27 06:12] LABS: Anion Gap 14 mmol/L (10-20); BUN (Urea Nitrogen) 85 mg/dL (8.4-25.7); Calc. Creatinine Clearance 19 mL/min (70-130); Calcium 8.6 mg/dL (7.8-10.44); Carbon Dioxide 23 mmol/L (23-31); Chloride 117 mmol/L (98-107); Estimated GFR-MDRD 26; Glucose 212 mg/dL (83-110); Potassium 3.8 mmol/L (3.5-5.1); Sodium 150 mmol/L (136-145)
[2018-09-27 06:19] LABS: Hemoglobin 8.9 g/dL (14.0-18.0); Hypochromia SLIGHT = 6-15 cells (100X) (0-5/hpf); Lymphocytes 8 % (21-51); MDiff Complete? YES; Macrocytosis SLIGHT = 6-15 cells (100X) (0-5/hpf); Mean Corpuscular HGB CONC 31.4 g/dL (32.0-36.0); Mean Corpuscular Hemoglobin 31.8 pg (27.0-31.0); Mean Platelet Volume 7.9 fL (7.4-10.4); Monocytes 1 % (0-10); Neutrophil 91 % (42-75); PLT Morphology Comment Appears Adequate; Platelet Count 366 thou/uL (130-400); RBC Distribution Width 12.9 % (11.5-14.5); Red Blood Cell (RBC) Count 2.78 mill/uL (4.70-6.10)
[2018-09-27] MEDS: Heparin 5,000 UNITS/ML VIAL SC SCH ×2 (08:23→20:01)
--- NOTE | 2018-09-27 09:58 | PRG ---
DATE OF SERVICE: 09/27/2018 SUBJECTIVE: Naeem Luna remains encephalopathic in the ICU. OBJECTIVE: VITAL SIGNS: Pulse 65, blood pressure 110/73, saturations 100%, respirations 18. Status post chest tube insertion for a parapneumonic effusion. CHEST: Decreased breath sounds. No wheezing. CARDIAC: Normal S1, S2. No gallops. ABDOMEN: No masses. LABORATORY DATA: Creatinine is 2.88, sodium 150. White count 7000, H and H of 8 and 28, platelet count 366. X-ray shows much improvement today. IMPRESSION: 1. Right-sided empyema status post chest tube insertion. 2. Dysphagia. 3. Encephalopathy. PLAN: He is on Zosyn and vancomycin. I would continue supportive care. Apparently, he is a chemical intubation code only. No CPR. PROGNOSIS: Remains guarded. We will follow while in the ICU. Job ID: [id number]
--- NOTE | 2018-09-27 10:45 | RAD ---
PORTABLE AP CHEST XRAY: DATE: 09/27/2018. HISTORY: On ventilator. Followup evaluation. COMPARISON: 09/26/2018. FINDINGS: Dual-lead right subclavian cardiac pacemaking device remains in place. Right-sided thoracostomy tube is again noted in place with tip overlying the medial right mid lung zone. There is a small right-s ided pneumothorax which has improved at the right lung base, but pneumothorax is now also seen at the right lung apex. Subcutaneous emphysema is seen at the lateral right chest. The left lung is clear . Cardiac silhouette is within normal limits. There is volume loss in the right mid lung zone and a t the right lung base. IMPRESSION: 1. Right-sided thoracostomy tube remaining in place with persistent small right-sided pneumothorax w hich does appear mildly improved at the right lung base. 2. Atelectasis in the right mid lung zone and at the right lung base. POS: [facility]
--- NOTE | 2018-09-27 11:21 | PDOC.PN ---
- Subjective Encounter Start Date: 09/27/18 Encounter Start Time: 11:19 Mr. Luna was seen today in follow-up of Aspiration pneumonia, with empyema. He is confused. He can not communicate ant needs or concerns.He is breathing comfortably on room air, oxygenating at 100%. - Objective Resuscitation Status - Order Detail: 09/25/18 21:29 Resuscitation Status Routine Resuscitation Status: PRTL: Chem-Intubation Discussed with: family wants chem and intubation MAR Reviewed: Yes Vital Signs & Weight: Vital Signs (12 hours) Temp Pulse Resp Pulse Ox 09/27/18 08:00 98.6 F 09/27/18 07:03 65 21 H 100 09/27/18 04:00 97.7 F 09/27/18 00:52 100 09/27/18 00:00 98.6 F Weight Weight 142 lb 6.698 oz Most Recent Monitor Data Heart Rate from ECG 65 NIBP 120/76 NIBP BP-Mean 90 Respiration from ECG 24 SpO2 100 I&O: 09/26/18 09/27/18 09/28/18 06:59 06:59 06:59 Intake Total 1935 3194 Output Total 420 3300 400 Balance 1515 -106 -400 Result Diagrams: 09/27/18 05:46 09/27/18 05:45 Phys Exam - Physical Examination HEENT: PERRLA + rhonchi bilaterally, decreased breath sounds at both bases Cardiovascular: RRR, no significant murmur, no rub Gastrointestinal: soft, non-tender, no distention, positive bowel sounds Musculoskeletal: no edema, pulses present Deviation from normal: Disoriented X3 Dx/Plan (1) Empyema lung Code(s): J86.9 - PYOTHORAX WITHOUT FISTULA Status: Acute Comment: has chest tube (2) PNA (pneumonia) Code(s): J18.9 - PNEUMONIA, UNSPECIFIED ORGANISM Status: Acute Qualifiers: Pneumonia type: aspiration pneumonia Laterality: right Lung location: lower lobe of lung (3) Acute respiratory failure with hypoxia Code(s): J96.01 - ACUTE RESPIRATORY FAILURE WITH HYPOXIA Status: Resolved (4) Moderate protein-calorie malnutrition Code(s): E44.0 - MODERATE PROTEIN-CALORIE MALNUTRITION Status: Chronic (5) HTN (hypertension) Code(s): I10 - ESSENTIAL (PRIMARY) HYPERTENSION Status: Chronic Qualifiers: Hypertension type: essential hypertension (6) Dementia Code(s): F03.90 - UNSPECIFIED DEMENTIA WITHOUT BEHAVIORAL DISTURBANCE Status: Acute - Plan * Aspiration Pneumonia with Right sided Empyema- continue Zosyn and Vancomycin * He is at high aspiration risk- I am told that the family does not want PEG tube placement- ema hold off on feeding patient for now- will need to discuss with family * Hypernatremia- continue Hypotonic fluids. * HTN- Blood pressure is stable * Malnutrition- likely due advanced dementia and dysphagia * Dementia- likely multi-infarc
--- NOTE | 2018-09-27 12:49 | PRG ---
DATE OF SERVICE: 09/27/2018 SUBJECTIVE: 78-year-old gentleman being seen for acute kidney injury. The patient remained resting. OBJECTIVE: VITAL SIGNS: Afebrile, pulse 85, breathing 16, blood pressure 131/71. Awake, alert, in no acute distress. GENERAL APPEARANCE AND MENTAL STATUS: Fair. HEAD/NECK: Normocephalic. Atraumatic. EYES: EOMI. No deformity. EARS: Clear. No ulcers. NOSE: Intact. No lesions. MOUTH: Clear. No discharge. THROAT: Clear. No exudate. LUNGS: Clear. No crackles. CARDIAC: S1, S2. No rub. ABDOMEN: Benign. Bowel sounds positive. GENITALIA/RECTUM: Vargas absent. BACK/EXTREMITIES: Edema 0+. NEUROLOGICAL: Alert and motor intact. SKIN: LYMPHATICS: LABS: Hemoglobin 8.9, sodium 150, creatinine 2.8. ASSESSMENT AND PLAN: 1. Acute kidney injury, improved. 2. Chronic kidney disease stage 4, stable. 3. Hypernatremia, improving. Continue D5 water. No indication for dialysis at this time. 4. Hyperkalemia has resolved. Job ID: [id number]
[2018-09-27] MEDS: Vancomycin HCl 500 MG in Sodium Chloride 0.9% 100 ML IVPB SCH (16:30)
[2018-09-27] MEDS: Acetaminophen 650 MG Suppository PR PRN (16:36)
[2018-09-27] MEDS ORDERED: Vancomycin HCl 0.75 GM in Sodium Chloride 0.9% 250 ML 250 ML IVPB SCH (17:00)
[2018-09-27] MEDS ORDERED: Vancomycin HCl 750 MG in Sodium Chloride 0.9% 250 ML 250 ML IVPB SCH (17:00)
--- NOTE | 2018-09-27 17:26 | CON ---
DATE OF CONSULTATION: 09/27/2018 GASTROENTEROLOGY CONSULTATION: CHIEF COMPLAINT: Trouble swallowing. HISTORY OF PRESENT ILLNESS: Mr. Luna is an 78-year-old man who was admitted on 09/25/2018, with aspiration pneumonia. He underwent chest tube placement for empyema and had a large amount of pus removed with that. The chest tube remains in place. Due to ongoing aspiration risk, GI was consulted for gastrostomy tube placement. The patient is not communicative. PAST MEDICAL HISTORY: Stroke, subdural hematoma, hypertension, dementia, osteoarthritis, dyslipidemia, coronary artery disease, and rheumatoid arthritis. PAST SURGICAL HISTORY: Inguinal hernia repair, cystoscopy for urethral stricture, and chest tube placement. FAMILY HISTORY: Negative for GI malignancy. SOCIAL HISTORY: No alcohol, tobacco, or drugs. ALLERGIES: IODINE. MEDICATIONS: Prior to admission, included; 1. Prednisone. 2. Methotrexate. 3. Diclofenac. 4. Pepcid. 5. Ramipril. 6. Misoprostol. 7. Aspirin. 8. Coreg. 9. Colace. 10. Lasix. Here in the hospital, he is currently on; 1. Famotidine. 2. Subcu heparin. 3. Zosyn. 4. Vancomycin. REVIEW OF SYSTEMS: Unobtainable due to the patient's aphagia and dementia history. PHYSICAL EXAMINATION: VITAL SIGNS: Temperature is 98.5, pulse 65, and blood pressure 124/68. GENERAL: He is in no acute distress. He is breathing spontaneously on room air. LUNGS: Clear to auscultation bilaterally. HEART: Regular rate and rhythm without murmur. He has a chest tube in place. ABDOMEN: Soft, nontender, and nondistended. Bowel sounds are present. EXTREMITIES: Show no lower extremity edema. LABORATORY DATA: White blood cell count 7.0, hemoglobin 8.9, and platelets 366. Creatinine 2.88. IMPRESSION: 1. Oropharyngeal dysphagia. 2. Aspiration pneumonia with empyema, status post chest tube, currently on Zosyn and vancomycin. RECOMMENDATIONS: 1. We will plan EGD with percutaneous endoscopic gastrostomy tube placement tomorrow. 2. The risks and benefits of the procedure were discussed in detail with the patient's family, Willi. Job ID: [id number]
[2018-09-27] MEDS: Famotidine/PF 20 mg/2ml Vial SLOW IVP SCH (20:01)
[2018-09-28] MEDS: Piperacillin/Tazobactam 2.25 GM in Sodium Chloride 0.9% 100 ML IVPB SCH ×5 (00:01→23:40)
[2018-09-28] MEDS: Dextrose 5% in Water 1,000 ML IV SCH ×3 (05:44→23:40)
[2018-09-28 08:49] LABS: Hemoglobin 9.7 g/dL (14.0-18.0); Mean Corpuscular HGB CONC 31.1 g/dL (32.0-36.0); Mean Corpuscular Hemoglobin 31.5 pg (27.0-31.0); Mean Platelet Volume 7.8 fL (7.4-10.4); Platelet Count 292 thou/uL (130-400); White Blood Cell (WBC) Count 9.1 thou/uL (4.8-10.8)
[2018-09-28 08:56] LABS: Anion Gap 13 mmol/L (10-20); BUN (Urea Nitrogen) 59 mg/dL (8.4-25.7); Calc. Creatinine Clearance 29 mL/min (70-130); Calcium 8.8 mg/dL (7.8-10.44); Carbon Dioxide 22 mmol/L (23-31); Chloride 119 mmol/L (98-107); Estimated GFR-MDRD 43; Glucose 135 mg/dL (83-110); Potassium 3.9 mmol/L (3.5-5.1); Sodium 150 mmol/L (136-145)
--- NOTE | 2018-09-28 09:04 | RAD ---
FRONTAL RADIOGRAPH CHEST: 09/28/2018 HISTORY: Ventilated CCU patient. COMPARISON: 09/27/2018 FINDINGS: There is a stable, small, right-sided pneumothorax with a component in the apex and the base. Stable right-sided chest tube. Nonspecific mild hazy increased linear density again noted in the right low er lobe. Left lung appears clear. Heart and mediastinal contours are stable. Stable dual-lead garsia svenous pacing device on the right. IMPRESSION: No significant interval change. POS: JESSICA
[2018-09-28 09:15] LABS: Band 1 % (5-11); Lymphocytes 16 % (21-51); MDiff Complete? YES; Monocytes 1 % (0-10); Neutrophil 82 % (42-75); PLT Morphology Comment Appears Adequate; Polychromasia SLIGHT = 2-3 cells (100X) (0-2/hpf)
[2018-09-28] MEDS: Heparin 5,000 UNITS/ML VIAL SC SCH ×2 (09:52→20:09)
--- NOTE | 2018-09-28 11:34 | PRG ---
DATE OF SERVICE: 09/28/2018 SUBJECTIVE: An 78-year-old gentleman, being seen for acute kidney injury. The patient is resting. OBJECTIVE: CONSTITUTIONAL: The patient is resting. VITAL SIGNS: Afebrile, pulse 60, breathing 16, and blood pressure 137/64. GENERAL APPEARANCE AND MENTAL STATUS: Fair. HEAD/NECK: Normocephalic. Atraumatic. EYES: EOMI. No deformity. EARS: Clear. No ulcers. NOSE: Intact. No lesions. MOUTH: Clear. No discharge. THROAT: Clear. No exudate. LUNGS: Clear. No crackles. CARDIAC: S1, S2. No rub. ABDOMEN: Benign. Bowel sounds positive. GENITALIA/RECTUM: Vargas absent. BACK/EXTREMITIES: Edema 0+. NEUROLOGICAL: Alert and motor intact. SKIN: LYMPHATICS: LABORATORY DATA: Labs show hemoglobin 9.7, sodium 150, and creatinine 1.8. ASSESSMENT AND PLAN: 1. Acute kidney injury, improved. 2. Chronic kidney disease stage 3, stable. 3. Hypernatremia. Recommend increasing the IV fluid of D5 water to 125 mL/h. 4. No indication for dialysis. Job ID: [id number]
[2018-09-28] MEDS: Acetaminophen 650 MG Suppository PR PRN (13:29)
[2018-09-28] MEDS ORDERED: Morphine 4 MG/ML VIAL SLOW IVP PRN ×2 (14:48)
--- NOTE | 2018-09-28 14:53 | PDOC.PN ---
- Subjective Encounter Start Date: 09/28/18 Encounter Start Time: 14:51 Mr. Luna was seen today in follow-up of aspiration pneumonia, and large empyema. He has met with Palliative care, and the daughters have decided to change his code status to DNAR. They are also contemplating comfort care only. - Objective Resuscitation Status - Order Detail: 09/28/18 14:50 Resuscitation Status Routine Resuscitation Status: DNAR: NO Resuscitation Discussed with: d/w POA: Aster and Alyssa Additional comments: Phone# to reach above: [phone], [phone] NOV Reviewed: Yes Vital Signs & Weight: Vital Signs (12 hours) Temp Pulse Resp Pulse Ox 09/28/18 14:16 60 21 H 100 09/28/18 12:00 98.1 F 09/28/18 08:00 98.2 F 100 09/28/18 07:14 60 18 99 09/28/18 04:00 97.8 F Weight Weight 142 lb 6.698 oz Most Recent Monitor Data Heart Rate from ECG 57 NIBP 120/68 NIBP BP-Mean 85 Respiration from ECG 22 SpO2 100 I&O: 09/27/18 09/28/18 09/29/18 06:59 06:59 06:59 Intake Total 3194 2895 Output Total 3300 2470 990 Balance -106 425 -990 Result Diagrams: 09/28/18 08:06 09/28/18 08:06 Phys Exam - Physical Examination HEENT: PERRLA Respiratory: no wheezing rales at the bases, and decreased breath sounds at the left base Cardiovascular: RRR, no significant murmur, no rub Gastrointestinal: soft, positive bowel sounds Musculoskeletal: no edema, pulses present Dx/Plan (1) Empyema lung Code(s): J86.9 - PYOTHORAX WITHOUT FISTULA Status: Acute Comment: has chest tube (2) PNA (pneumonia) Code(s): J18.9 - PNEUMONIA, UNSPECIFIED ORGANISM Status: Acute Qualifiers: Pneumonia type: aspiration pneumonia Laterality: right Lung location: lower lobe of lung (3) Acute respiratory failure with hypoxia Code(s): J96.01 - ACUTE RESPIRATORY FAILURE WITH HYPOXIA Status: Resolved (4) Moderate protein-calorie malnutrition Code(s): E44.0 - MODERATE PROTEIN-CALORIE MALNUTRITION Status: Chronic (5) HTN (hypertension) Code(s): I10 - ESSENTIAL (PRIMARY) HYPERTENSION Status: Chronic Qualifiers: Hypertension type: essential hypertension (6) Dementia Code(s): F03.90 - UNSPECIFIED DEMENTIA WITHOUT BEHAVIORAL DISTURBANCE Status: Acute - Plan * Pneumonia with Empyema- will continue antibiotics for today, await further guidance from family * His code status has been changed to DNAR, and this was verified with the patient's daughter * Will add Morphine for pain, as well as viscous Lidocaine for mouth pain * HTN- blood pressure is stable * He can moved to the medical floor.
--- NOTE | 2018-09-28 15:10 | PRG ---
DATE OF SERVICE: 09/28/2018 SERVICE: Pulmonary Medicine. INTERVAL HISTORY: The patient is doing fine from respiratory standpoint. He cannot provide any additional elements of the history because of his chronic encephalopathy. Otherwise, there has been no interval change to his condition. PHYSICAL EXAMINATION: VITAL SIGNS: Afebrile, pulse 60, blood pressure 120/68, respirations 21, saturation 100% on room air. GENERAL: The patient is awake and alert, in no apparent distress. LUNGS: Decent air entry. No rhonchi or wheezing appreciated. HEART: Normal rate, regular. ABDOMEN: Soft, nontender, and nondistended. Bowel sounds are positive. MUSCULOSKELETAL: No cyanosis or clubbing. There is no pitting in the bilateral lower extremities. NEUROLOGIC: Grossly nonfocal. LABORATORY DATA: WBC 9.1, hemoglobin 9.7, platelets 292,000. Neutrophil count is 82%. Bands have improved to 1%. Sodium 150 and downtrending. Potassium 3.9, chloride 119. Basic metabolic profile is otherwise unremarkable and his creatinine is improved to 1.83. LDH is elevated, amylase, and glucose is low. PH was extremely low. Neutrophil count is 97%. Pleural fluid is growing strep anginosus. Blood cultures x2 remain unremarkable. IMAGING: Chest x-ray demonstrates no interval change. There is a small right-sided pneumothorax, which is stable. Right-sided chest tube is in good position. Right lower lobe density is present consistent with an infiltrate. ASSESSMENT: 1. Severe sepsis. 2. Empyema. 3. Acute kidney injury. 4. Healthcare-associated pneumonia. 5. Dementia, advanced. DISCUSSION AND PLAN: I will have a conversation with palliative care. If the family is interested in this being aggressive, we can consider things like PEG tube, and tracheostomy. That being said, if they would like to pursue comfort measures, I do think it would be appropriate in this setting. Pulmonary will continue to follow along for the time being. From my perspective, however, he is stable for transition to the medical unit. Gentle hydration will be continued. Job ID: [id number]
[2018-09-28] MEDS: Lidocaine Viscous Sol 2% 15 ml UD Cup SSW SCH ×2 (16:25→20:16)
[2018-09-28] MEDS: Famotidine/PF 20 mg/2ml Vial SLOW IVP SCH (20:08)
[2018-09-29] MEDS: Lidocaine Viscous Sol 2% 15 ml UD Cup SSW SCH ×5 (01:23→18:23)
[2018-09-29] MEDS: Piperacillin/Tazobactam 2.25 GM in Sodium Chloride 0.9% 100 ML IVPB SCH ×2 (05:49→11:43)
[2018-09-29 07:23] LABS: Chloride 116 mmol/L (98-107); Potassium 3.8 mmol/L (3.5-5.1); Sodium 142 mmol/L (136-145)
[2018-09-29 07:24] LABS: Calcium 8.4 mg/dL (7.8-10.44)
[2018-09-29 07:25] LABS: Glucose 145 mg/dL (83-110)
[2018-09-29 07:26] LABS: Anion Gap 13 mmol/L (10-20); Carbon Dioxide 17 mmol/L (23-31)
[2018-09-29 07:28] LABS: Calc. Creatinine Clearance 45 mL/min (70-130); Estimated GFR-MDRD 71; Phosphorus 2.7 mg/dL (2.3-4.7)
[2018-09-29 07:29] LABS: BUN (Urea Nitrogen) 31 mg/dL (8.4-25.7)
--- NOTE | 2018-09-29 07:57 | RAD ---
PORTABLE UPRIGHT FRONTAL CHEST RADIOGRAPH: Date: 09/29/18 COMPARISON: 09/28/18. HISTORY: Reevaluate chest tube and pneumothorax. FINDINGS: Stable chest tube overlies the mid right lung zone. Stable dual lead transvenous pacing device. Small pneumothorax noted on the right with an apical and a basilar component. Stable blunting of righ t costophrenic angle with hazy density in the right lung base. Left lung is clear. IMPRESSION: Stable appearance of the chest as detailed above. POS: JESSICA
[2018-09-29] MEDS: Dextrose 5% in Water 1,000 ML IV SCH (08:53)
[2018-09-29] MEDS: Heparin 5,000 UNITS/ML VIAL SC SCH (08:54)
--- NOTE | 2018-09-29 13:48 | PDOC.PN ---
- Subjective Encounter Start Date: 09/29/18 Encounter Start Time: 13:46 Patient is here for follow-up of empyema . He appears comfortable. His family is at the bedside. His daughter says that he has not waken up all day. - Objective Resuscitation Status - Order Detail: 09/28/18 14:50 Resuscitation Status Routine Resuscitation Status: DNAR: NO Resuscitation Discussed with: d/w POA: Aster and Alyssa Additional comments: Phone# to reach above: [phone], [phone] MAR Reviewed: Yes Vital Signs & Weight: Vital Signs (12 hours) Temp Pulse Resp BP Pulse Ox 09/29/18 10:46 97.8 F 64 16 129/74 100 09/29/18 08:00 100 09/29/18 07:23 97.9 F 63 16 147/63 H 100 09/29/18 07:06 59 L 20 99 09/29/18 04:00 98.5 F 60 20 135/64 99 Weight Weight 142 lb 6.698 oz Most Recent Monitor Data Heart Rate from ECG 60 NIBP 132/57 NIBP BP-Mean 82 Respiration from ECG 23 SpO2 100 I&O: 09/28/18 09/29/18 09/30/18 06:59 06:59 06:59 Intake Total 2895 1375 Output Total 2470 2530 Balance 425 -1155 Result Diagrams: 09/28/18 08:06 09/29/18 06:39 Phys Exam - Physical Examination + rhonchi bilaterally, and occasional wheeze Cardiovascular: RRR, no significant murmur, no rub Gastrointestinal: soft, non-tender, no distention, positive bowel sounds Musculoskeletal: no edema Dx/Plan (1) Empyema lung Code(s): J86.9 - PYOTHORAX WITHOUT FISTULA Status: Acute Comment: has chest tube (2) PNA (pneumonia) Code(s): J18.9 - PNEUMONIA, UNSPECIFIED ORGANISM Status: Acute Qualifiers: Pneumonia type: aspiration pneumonia Laterality: right Lung location: lower lobe of lung (3) Acute respiratory failure with hypoxia Code(s): J96.01 - ACUTE RESPIRATORY FAILURE WITH HYPOXIA Status: Resolved (4) Moderate protein-calorie malnutrition Code(s): E44.0 - MODERATE PROTEIN-CALORIE MALNUTRITION Status: Chronic (5) HTN (hypertension) Code(s): I10 - ESSENTIAL (PRIMARY) HYPERTENSION Status: Chronic Qualifiers: Hypertension type: essential hypertension (6) Dementia Code(s): F03.90 - UNSPECIFIED DEMENTIA WITHOUT BEHAVIORAL DISTURBANCE Status: Acute - Plan * Empyema- the daughters are certain on Palliative care only, and have asked me to discontinue all active treatment * His appears eminent, and I believe he is appropriate for inpatient hospice. I have discussed this with Case Management.
--- NOTE | 2018-09-29 14:44 | PRG ---
DATE OF SERVICE: 09/29/2018 SERVICE: Pulmonary Medicine. INTERVAL HISTORY: The patient is doing fine from Respiratory standpoint. He appears to be comfortable. There has been no interval change to his condition. The family has decided to pursue comfort measures only. Otherwise, he cannot provide any additional elements of the history. There were no reported events overnight. PHYSICAL EXAMINATION: VITAL SIGNS: Afebrile. Pulse 64, blood pressure 129/74, respirations 16, and saturation 100% on room air. GENERAL: The patient is awake and alert, in no apparent distress. LUNGS: Excellent air entry on the left. There is decreased air entry at the right base. Crackles and rhonchi are present. No wheezing. HEART: Normal rate and regular. ABDOMEN: Soft, nontender, and nondistended. Bowel sounds are positive. MUSCULOSKELETAL: No cyanosis or clubbing. There is no pitting in the bilateral lower extremities. NEUROLOGIC: Grossly nonfocal. He has very advanced dementia, he is not following any commands. LABORATORY DATA: Sodium 142 and downtrending, chloride 116 and downtrending. Basic metabolic profile is otherwise unremarkable. Creatinine has improved to 1.19. Magnesium and phosphorous are now within the normal limits. Pleural fluid is growing Strep anginosus. AFB smear and culture, negative. Blood cultures x2 are unremarkable. IMAGING DATA: Chest x-ray demonstrates good placement of the right-sided thoracostomy tube. There is a rim of pneumothorax present around the periphery of the lung. ASSESSMENT: 1. Severe sepsis. 2. Empyema secondary to Streptococcus anginosus. 3. Dementia, advanced. 4. Acute kidney injury, resolved. DISCUSSION AND PLAN: The patient is being transition over to comfort care only. At this point, he has no further requirements for inpatient Pulmonary or Critical Care opinion. As such, I will sign off. Please call with additional questions or concerns moving forward. Job ID: [id number]
[2018-09-29 16:35] VITALS: BP 156/69; TEMP 97.5
--- NOTE | 2018-09-30 03:02 | DIS ---
DATE OF ADMISSION: 09/25/2018 DATE OF DISCHARGE: 09/29/2018 DISCHARGE DISPOSITION: Inpatient hospice. DISCHARGE DIAGNOSES: 1. Aspiration pneumonia with large empyema. 2. Advanced dementia. 3. Previous subdural hematoma. 4. Hypertension. 5. History of cerebrovascular accident with left hemiparesis. 6. Diastolic dysfunction. 7. Pacemaker placement. 8. Lumbar radiculopathy. 9. Coronary artery disease. DISCHARGE MEDICATIONS: None. CODE STATUS: Do not attempt resuscitation. PROCEDURES: The procedures done during admission, the patient had a CT scan of the chest showing interval development of a large right pleural effusion, a portion of which is partially loculated. There is an area of consolidation in the right lung. Also, there was notice of an enlarged thyroid gland and multiple hypodense renal lesions. The patient also had a chest tube placement to the right lung. HOSPITAL COURSE: Mr. Luna is an 78-year-old gentleman who presented to the emergency room with acute respiratory failure with hypoxemia. He was evaluated in the ER and found to have a right lower lobe pneumonia with a large right parapneumonic effusion. The area was loculated and it was found to be an empyema. He was seen by Pulmonology as well as Vascular or Thoracic Surgery. He underwent right tube thoracostomy placement and with the removal of greater than 1.9 L of al pus from the right lung. He continued on IV antibiotics for several days. He seemed to not be progressing well primarily from his mental status as the patient actually was oxygenating well on room air. His family, however, decided to not pursue further aggressive treatment. [facility] came when the patient had failed his swallowing study and there were concerns about whether or not to place a PEG tube. At this point, the family decided that he would never have wanted a PEG tube that he has advanced dementia as well as multiple other comorbidities and decided to transition him to comfort care only. They also asked to discontinue IV antibiotics and have the chest tube removed and after this was done, he was discharged to the inpatient hospice facility. Job ID: [id number]
--- NOTE | 2018-09-30 11:05 | OP ---
DATE OF PROCEDURE: 09/25/2018 SERVICE: Pulmonary Medicine. PROCEDURE PERFORMED: Right-sided pleural drainage with catheter insertion under ultrasound guidance. CONSENT: The risks and benefits of this procedure were explained to the patient's surrogates. All questions were answered, and alternative options explained. MEDICATIONS USED: Lidocaine 1% without epinephrine, total quantity 8 mL. PREPROCEDURE DIAGNOSES: 1. Severe sepsis. 2. Pleural effusion. POSTPROCEDURE DIAGNOSES: 1. Severe sepsis. 2. Empyema. DESCRIPTION OF PROCEDURE: Time-out was performed by the procedure team and the patient. The patient was positively identified using name and date of . The procedure site was marked. Vital sign monitoring was accomplished by noninvasive hemodynamic monitoring, pulse oximetry, and telemetry. In the seated position, the right posterior hemithorax was examined using ultrasound probe. The diaphragm and pleural fluid were easily identified. The skin was prepped and draped in usual sterile fashion and anesthetized with 1% lidocaine without epinephrine. A finder needle was inserted in the pleural space with return of purulent brown foul-smelling fluid. A pleural drainage catheter was then inserted in the same location, a total quantity of 1100 mL of pleural fluid was withdrawn by syringe pump technique. The sample was sent for analysis. Evacuation of fluid was terminated because the fluid stopped coming. At the end of the procedure, estimated pleural pressures, measured by manometry, was -15 cm of pleural fluid. Intact catheter was withdrawn, on exhalation, and a sterile dressing was applied. The patient had stable vitals throughout the entire procedure. ESTIMATED BLOOD LOSS: 2 mL. COMPLICATIONS: None. Job ID: [id number]
== END 2018-09-29 20:13 | disposition hospice, inpatient (51) | DRG 871 ==
LOC: ERS 13:48 → CCU 15:59 → T4-B 09-28 14:30
PROVIDERS: ADMIT Internal Medicine; ATTEND Internal Medicine
PROC: 0W9900Z Drainage of Right Pleural Cavity with Drainage Device, Open Approach (ICD-10-PCS; principal; 2018-09-26)
DX: A41.9 Sepsis, unspecified organism (principal); J96.01 Acute respiratory failure with hypoxia; J69.0 Pneumonitis due to inhalation of food and vomit; J86.9 Pyothorax without fistula; I50.33 Acute on chronic diastolic (congestive) heart failure; N17.9 Acute kidney failure, unspecified; G93.49 Other encephalopathy; I69.354 Hemiplegia and hemiparesis following cerebral infarction affecting left non-dominant side; E87.0 Hyperosmolality and hypernatremia; E44.0 Moderate protein-calorie malnutrition; R65.20 Severe sepsis without septic shock; Z66 Do not resuscitate; E78.5 Hyperlipidemia, unspecified; I69.398 Other sequelae of cerebral infarction; I11.0 Hypertensive heart disease with heart failure; M19.90 Unspecified osteoarthritis, unspecified site; I25.10 Atherosclerotic heart disease of native coronary artery without angina pectoris; Z91.041 Radiographic dye allergy status; Z68.21 Body mass index [BMI] 21.0-21.9, adult; F03.90 Unspecified dementia, unspecified severity, without behavioral disturbance, psychotic disturbance, mood disturbance, and anxiety; R13.12 Dysphagia, oropharyngeal phase; B95.4 Other streptococcus as the cause of diseases classified elsewhere; Z51.5 Encounter for palliative care; Z95.0 Presence of cardiac pacemaker; M54.16 Radiculopathy, lumbar region; I69.391 Dysphagia following cerebral infarction
CPT/HCPCS: 36415; 36416; 51702; 71045; 71250; 80048; 80053; 80202; 81003; 81015; 82150; 82550; 82553; 82805; 82945; 83605; 83615; 83690; 83735; 83880; 83986; 84100; 84157; 84484; 85025; 85060; 87040; 87070; 87116; 87205; 87206; 88112; 88305; 89051; 93005; 94640; 96361; 96365; 96375; G8996-GN-CM; G8997-GN-CJ; J0692; J1100; J1644; J1650; J1956; J2001; J2270; J2543; J2920; J3370; J7050; J7611; J7620; S0028